=== PATIENT | female | born 1940 | race Two or more races ===

== ENCOUNTER 2021-05-25 11:31 | Emergency (ER) | payer MEDICARE, SELFPAY ==
--- NOTE | ~2021-05-25 | CT_ITS ---
EXAMINATION: CT ANGIOGRAM OF THE CHEST WITH AND WITHOUT CONTRAST (CT PULMONARY ANGIOGRAM FOR PE) CLINICAL INFORMATION: Reason for Exam SOB, elevated DDIMER COMPARISON: CT of the chest done on 11/05/2016. TECHNIQUE: Prior to contrast administration, noncontrast localization images were obtained. Subsequently, multidetector volumetric imaging was performed from the thoracic inlet to below the diaphragms following the administration of 65 mL Omnipaque 350 intravenous contrast. No contrast reaction reported Sagittal, coronal, and MIP oblique sagittal reformatted images were obtained on the CT workstation, uploaded to PACS, and reviewed. This CT examination was performed using dose optimization techniques as appropriate, variously including the following: *Automated exposure control *Adjustment of mA and/or kV according to patient size (this includes techniques or standardized protocols for targeted exams where dose is matched to indication/reason for exam; i.e. extremities or head) *Use of iterative reconstruction technique Total exam dose-length product 250.9 mGy-cm FINDINGS: QUALITY OF STUDY/CONTRAST BOLUS: Satisfactory. PULMONARY ARTERIES: No central or segmental pulmonary emboli. THORACIC AORTA: No aneurysm or dissection. LUNG: No focal consolidation, nodules or masses. PLEURA: No pleural effusion or pneumothorax. MEDIASTINUM: Normal heart size. No pericardial effusion. No hilar or mediastinal lymphadenopathy. No evidence of septal bowing or right heart strain. CHEST WALL/AXILLA: No axillary or internal mammary lymphadenopathy. OSSEOUS STRUCTURES: No acute or suspicious osseous abnormality. Marked S-shaped scoliosis is present in the thoracic spine. UPPER ABDOMEN: Stable approximately 1 cm hypodensity is noted within the left lobe of the liver. No reflux of contrast into the hepatic veins to suggest elevated right heart pressures. CT/CT angio chest PE protocol IMPRESSION: No CT evidence of any acute intrathoracic pathology is identified. Specifically, no CT evidence of any pulmonary thromboembolism is seen. VTE: Negative.
--- NOTE | ~2021-05-25 | US_ITS ---
EXAMINATION: US VENOUS ULTRASOUND WITH DOPPLER LOWER EXTREMITY, BILATERAL CLINICAL INFORMATION: Bilateral leg pain COMPARISON: None TECHNIQUE: Ultrasound of the deep veins is performed from the hip to the calf with compression sonography and color and pulse Doppler assessment. Spectral analysis with color-flow imaging is performed. FINDINGS: RIGHT: There is normal venous compression and respiratory variation and augmented flow. The visualized common femoral vein, superficial femoral vein, profunda femoral vein, popliteal vein, and the trifurcation region shows no evidence of deep venous thrombosis. There is no significant popliteal fossa cyst. LEFT: There is normal venous compression and respiratory variation and augmented flow. The visualized common femoral vein, superficial femoral vein, profunda femoral vein, popliteal vein, and the trifurcation region shows no evidence of deep venous thrombosis. There is no significant popliteal fossa cyst. US/US venous duplex LE BI IMPRESSION: No DVT demonstrated in the bilateral lower extremity.
[2021-05-25 11:36] VITALS: BP 152/82; PULSE 80; RESP 16; TEMP 36.5; O2SAT 97; BMI 25.7
--- NOTE | 2021-05-25 13:36 | ED.GENADULT ---
HPI - General Adult General Chief complaint: Recheck/Abnormal Lab/Rx Stated complaint: pt needs cta stat. Time Seen by Provider: 05/25/21 12:49 Source: patient Mode of arrival: ambulatory Limitations: no limitations History of Present Illness HPI narrative: 81 y/o female with history of DM, HTN who presents to the ER with SOB and abnormal blood work. She was told to come to the ER for CTA of her chest to rule out blood clot. She was supposed to get it done today as an outpatient however it was unable to be completed due to insurance issues. She was recently admitted to [facility] for 5 days due to reactive airway disease and SOB, discharged with PO Prednisone and a Z-pack. Short term rehab was recommended however patient refused. Patient's daughter who is also her SHOPPER MARKETING MANAGER reports she is still having SMALL, some generalized weakness. Patient herself denies complaints, including SOB, SMALL or chest pain. No LE swelling. MD complaint: SOB + elevated DDIMER Onset (ago): week(s) Location: chest Radiation: non-radiation Severity: mild Pain Consistency: intermittent Relieving factors: rest Exacerbating factors: movement Associated symptoms: weakness Related Data Allergies Allergy/AdvReac Type Severity Reaction Status Date / Time No Known Allergies Allergy Verified 05/25/21 11:42 Review of Systems Constitutional: Constitutional: Denies chills, Denies fever(s), Denies headache(s) and Reports malaise Eyes: Eyes: Reports no additional eye complaints ENT: Denies dizziness and Denies headache(s) Cardiovascular: Cardiovascular: Denies chest pain, Denies chest pain at rest, Denies chest pain with activity, Denies pedal edema, Denies edema and Reports dyspnea on exertion Respiratory: Respiratory: Reports chest congestion, Reports cough, Denies hemoptysis, Denies pain on inspiration, Reports dyspnea on exertion and Denies wheezing Gastrointestinal: Gastrointestinal: Denies abdominal pain, Denies diarrhea, Denies nausea and Denies vomiting Musculoskeletal: Musculoskeletal: Denies myalgias Integumentary/Breasts: Skin/Breast: Denies rash Neurologic: Denies confusion, Denies dizziness, Denies headache(s) and Denies memory loss Psychiatric: Psychiatric: Denies confusion and Denies memory loss Hematologic/Lymphatic: Hematologic/Lymphatic: Denies easy bleeding and Denies easy bruising Allergic/Immunologic: Allergic/Immunologic: Denies wheezing PMFSH Social History Social History Advance Directives: Yes Advance Directives Information Provided: Yes Advance Directives on File: No Physical Exam Vital Signs: Vital Signs: Last Vital Signs Temp 98.3 F 05/25/21 15:52 Pulse 77 05/25/21 15:52 Resp 16 05/25/21 15:52 BP 133/67 05/25/21 15:52 Pulse Ox 95 05/25/21 15:52 Body Mass Index 25.7 Appearance: Alert. Oriented X3. No acute distress. Eyes: Pupils equal, round and reactive to light. ENT: Pharynx normal. Neck: Normal inspection. Neck supple. CVS: Normal heart rate and rhythm. Pulses normal. Respiratory: No respiratory distress. Breath sounds normal. Abdomen: Soft and nontender. +BS x4 Skin: Skin warm and dry. Normal skin color. Normal skin turgor. No rashes. Extremities: No lower extremity edema. Neuro: Oriented X 3. No motor deficit. No sensory deficit. Ambualtes with a slow but steady gait with the use of a cane. Const: General: No confusion Orientation/consciousness: No confusion Neuro: General: No confusion Course Course Course Narrative: 81 y/o female presenting with mild SOB/SMALL ongoing for a few weeks, dry cough as well as elevated DDIMER done as an outpatient. VS are stable on arrival and exam is benign. Will plan to get LE dopplers as well as CTA chest to r/o clot. Reevaluation(s) Reevaluation #1: LE dopplers are negative. Awaiting renal function prior to getting CTA. Remains hemodynamically stable with no respiratory distress or hypoxia. Troponin and BNP are negative. Anticipate d/c home. Signed out to Barby AVILEZ who will f/u CTA result. Medical Decision Making Lab Data Result diagrams: 05/25/21 16:12 05/25/21 16:12 Labs: Lab Results 05/25/21 05/25/21 05/25/21 Range/Units 16:11 16:12 16:12 WBC 12.4 H (4.8-10.8) X10*3/uL RBC 5.15 (4.20-5.50) X10*6/uL Hgb 15.6 (12.0-16.0) g/dl Hct 47.3 H (37-47) % MCV 91.8 (80-98) fL MCH 30.3 (27.0-33.0) pg MCHC 33.0 (31.0-35.0) g/dl RDW 12.4 (11.0-16.0) % Plt Count 280 (160-400) X10*3/uL MPV 9.7 (9.4-12.3) fL Immature Gran % (Auto) 0.5 H (0.0-0.4) % Neut % (Auto) 68.5 (45-73) % Lymph % (Auto) 21.9 (20-40) % [place] % (Auto) 5.9 (2-11) % Eos % (Auto) 3.0 (0-4) % Baso % (Auto) 0.2 (0-2) % Lymph # (Auto) 2.7 (1.2-4.9) X10*3/uL [place] # (Auto) 0.7 (0.1-1.2) X10*3/uL Eos # (Auto) 0.4 (0.0-0.4) X10*3/uL Baso # (Auto) 0.0 (0.0-0.2) X10*3/uL Abs Immat Gran (auto) 0.06 H (0.00-0.03) X10*3/uL Absolute Neuts (auto) 8.5 H (2.0-8.3) X10*3/uL Absolute Nucleated RBC 0.000 (0.0-0.012) X10*3/uL Nucleated RBC % (auto) 0.0 (0.0-0.2) /100WBC PT 11.3 (9.9-13.0) SEC INR 1.0 (0.9-1.1) D-Dimer 248 NG/ML Sodium (135-145) mmol/L Potassium (3.3-5.1) mmol/L Chloride (96-108) mmol/L Carbon Dioxide (22-29) mmol/L Anion Gap (12-20) BUN (9-16) mg/dL Creatinine (0.5-1.4) mg/dL Estim Creat Clear Calc Estimated GFR Random Glucose (60-115) mg/dL Calcium (8.4-10.2) mg/dL Troponin I High Sens (<3.5-17.0) ng/L B-Natriuretic Peptide 38 (<100) pg/mL 05/25/21 05/25/21 Range/Units 16:12 16:12 WBC (4.8-10.8) X10*3/uL RBC (4.20-5.50) X10*6/uL Hgb (12.0-16.0) g/dl Hct (37-47) % MCV (80-98) fL MCH (27.0-33.0) pg MCHC (31.0-35.0) g/dl RDW (11.0-16.0) % Plt Count (160-400) X10*3/uL MPV (9.4-12.3) fL Immature Gran % (Auto) (0.0-0.4) % Neut % (Auto) (45-73) % Lymph % (Auto) (20-40) % [place] % (Auto) (2-11) % Eos % (Auto) (0-4) % Baso % (Auto) (0-2) % Lymph # (Auto) (1.2-4.9) X10*3/uL [place] # (Auto) (0.1-1.2) X10*3/uL Eos # (Auto) (0.0-0.4) X10*3/uL Baso # (Auto) (0.0-0.2) X10*3/uL Abs Immat Gran (auto) (0.00-0.03) X10*3/uL Absolute Neuts (auto) (2.0-8.3) X10*3/uL Absolute Nucleated RBC (0.0-0.012) X10*3/uL Nucleated RBC % (auto) (0.0-0.2) /100WBC PT (9.9-13.0) SEC INR (0.9-1.1) D-Dimer NG/ML Sodium 135 (135-145) mmol/L Potassium 4.9 (3.3-5.1) mmol/L Chloride 97 (96-108) mmol/L Carbon Dioxide 29 (22-29) mmol/L Anion Gap 14 (12-20) BUN 16 (9-16) mg/dL Creatinine 1.18 (0.5-1.4) mg/dL Estim Creat Clear Calc 33.5 Estimated GFR 44 Random Glucose 376 H* (60-115) mg/dL Calcium 9.8 (8.4-10.2) mg/dL Troponin I High Sens 4.2 (<3.5-17.0) ng/L B-Natriuretic Peptide (<100) pg/mL ECG Data Attestation: I personally reviewed and interpreted this ECG as follows: Interpretation: normal sinus rhythm, HR 68 bpm, normal CA interval, changes consistent with LVH, no ST segment elevations or depressions. Discharge Plan Discharge Clinical Impression: Chronic dyspnea Patient Disposition: Home, Self-Care Instructions: Shortness of Breath (ED) Additional Instructions: The ultrasound of your legs did not show any blood clots. Your CT scan did not show any blood clots in your lungs. Your COVID test was negative. Recommend following up with your doctor early next week. If you develop new or worsening symptoms call 911 or come back to the ER for further evaluation.
[2021-05-25 15:52] VITALS: BP 133/67; PULSE 77; RESP 16; TEMP 36.8; O2SAT 95
[2021-05-25 16:18] LABS: MANUAL DIFF FLAG NO
--- NOTE | 2021-05-25 16:19 | ECG_ITS ---
Test Reason : ABNORMAL LABS Blood Pressure : / mmHG Vent. Rate : 068 BPM Atrial Rate : 068 BPM P-R Int : 142 ms QRS Dur : 112 ms QT Int : 414 ms P-R-T Axes : 013 -24 043 degrees QTc Int : 440 ms Normal sinus rhythm Voltage criteria for left ventricular hypertrophy Cannot rule out Septal infarct , age undetermined Abnormal ECG When compared with ECG of 11-JAN-2018 12:37, QRS duration has increased Minimal criteria for Septal infarct are now Present Referred By: Asha Florence Electronically Signed By:Santos Aleman
[2021-05-25 16:20] LABS: Basophils Percent Auto 0.2 % (0-2); Eosinophils Absolute Auto 0.4 X10*3/uL (0.0-0.4); Hematocrit 47.3 % (37-47); Hemoglobin 15.6 g/dl (12.0-16.0); Imm Gran Abs Auto 0.06 X10*3/uL (0.00-0.03); Imm Gran Pct Auto 0.5 % (0.0-0.4); Lymphocytes Absolute Auto 2.7 X10*3/uL (1.2-4.9); Lymphocytes Percent Auto 21.9 % (20-40); Mean Corpuscular Hemoglobin 30.3 pg (27.0-33.0); Mean Corpuscular Volume 91.8 fL (80-98); Mean Platelet Volume 9.7 fL (9.4-12.3); Monocytes Absolute Auto 0.7 X10*3/uL (0.1-1.2); Monocytes Percent Auto 5.9 % (2-11); Neutrophils Absolute Auto 8.5 X10*3/uL (2.0-8.3); Neutrophils Percent Auto 68.5 % (45-73); Platelet Count 280 X10*3/uL (160-400); Red Blood Count 5.15 X10*6/uL (4.20-5.50); Red Cell Distribution Width 12.4 % (11.0-16.0); White Blood Count 12.4 X10*3/uL (4.8-10.8)
[2021-05-25 16:26] LABS: Prothrombin Time 11.3 SEC (9.9-13.0)
[2021-05-25 16:29] LABS: D Dimer 248 NG/ML
[2021-05-25 16:56] LABS: B Type Natriuretic Peptide 38 pg/mL (<100)
[2021-05-25 16:56] LABS: Troponin-I High Sensitivity 4.2 ng/L (<3.5-17.0)
[2021-05-25 17:05] LABS: Anion Gap 14 (12-20); Blood Urea Nitrogen 16 mg/dL (9-16); Calcium 9.8 mg/dL (8.4-10.2); Carbon Dioxide 29 mmol/L (22-29); Chloride 97 mmol/L (96-108); Creatinine Clr Calc Pharmacy 33.5; Estimated Glomerular Filt Rate 44; Glucose Random 376 mg/dL (60-115); Potassium 4.9 mmol/L (3.3-5.1); Sodium 135 mmol/L (135-145)
[2021-05-25] MEDS: Insulin Lispro 100 UNIT/ML 3 ML VIAL 8 UNIT SUBCUT (17:44)
[2021-05-25 18:31] LABS: Influenza A PCR NEGATIVE (Negative); Influenza B PCR NEGATIVE (Negative); Resp Syncy Virus RNA Qual PCR NEGATIVE (Negative); SARS COV2 PCR INHOUSE NEGATIVE (Negative)
[2021-05-25 19:13] VITALS: BP 166/78; PULSE 73; RESP 18; TEMP 36.8; O2SAT 97
[2021-05-25 19:50] LABS: Glucose, Whole Blood 287 mg/dL (60-115)
--- NOTE | 2021-05-25 19:52 | PC.NURSE ---
client iv established, pending ct scan at this time. client states she is hungry and would like something to eat. educated we have to wait for results. client is in nad, speaking in clear and full sentences with staff durable medical equipment repairer.
--- NOTE | 2021-05-25 20:43 | PC.NURSE ---
[facility] [place] [id number] [phone] DAUGHTER
[2021-05-25 20:52] LABS: Glucose, Whole Blood 94 mg/dL (60-115)
--- NOTE | 2021-05-25 21:06 | PC.NURSE ---
client to ct scan. Barby PASSENGER CAR CONDUCTOR states client can eat after
[2021-05-25] MEDS: iohexoL 350 MG/ML 100 ML INFUS..BTL 65 ML IV (21:15)
== END 2021-05-25 22:27 | disposition home or self-care (01) ==
PROVIDERS: Physician Assistant; Emergency Provider Emergency Medicine Emergency Medical Services; PCP Internal Medicine Geriatric Medicine
DX: R06.09 Other forms of dyspnea (principal); R06.02 Shortness of breath; R79.1 Abnormal coagulation profile; E11.9 Type 2 diabetes mellitus without complications; I10 Essential (primary) hypertension; Z20.822 Contact with and (suspected) exposure to COVID-19
CPT/HCPCS: 0241U; 36415; 71275; 80048; 82947; 83880; 84484; 85025; 85379; 85610; 93005; 93970; 99284; Q9967

== ENCOUNTER → 2021-07-10 09:04 | Outpatient (BNVA) | payer MEDICARE, SELFPAY | PROVIDERS: PCP Internal Medicine Geriatric Medicine; Visit Provider Hospitalist | DX: J98.4 Other disorders of lung (principal); J68.3 Other acute and subacute respiratory conditions due to chemicals, gases, fumes and vapors; J45.909 Unspecified asthma, uncomplicated | CPT/HCPCS: 99202 ==

== ENCOUNTER 2021-09-21 07:45 | Outpatient (REF) | payer MEDICARE, SELFPAY ==
--- NOTE | ~2021-09-21 | MM_ITS ---
EXAMINATION: BONE DENSITOMETRY CLINICAL INDICATION: Osteopenia. COMPARISON: Previous BD dated 09/30/2017 and baseline BD dated 07/21/2012. TECHNIQUE: Using a [employer] DXA System (software version: 13.1) manufactured by [employer], dual-energy x-ray absorptiometry was performed of the lumbar spine and left hip. The images are of good technical quality. Summary results are attached. FINDINGS: AP SPINE L1-L4: Current: BMD 0.973 g/cm2, Z-score 0.0, T-score -1.7, osteopenia, 1.2% increase from previous, 0.6% decrease from baseline (<5% change is not significant). Prior: BMD 0.961 g/cm2. Baseline: BMD 0.979 g/cm2. LEFT FEMUR, NECK: Current: BMD 0.585 g/cm2, Z-score -1.1, T-score -3.3, osteoporosis. Prior: BMD 0.744 g/cm2. Baseline: BMD 0.721 g/cm2. LEFT FEMUR, TOTAL: Current: BMD 0.718 g/cm2, Z-score -0.3, T-score -2.3, osteopenia, 14.6% decrease from previous, 16.5% decrease from baseline (<5% change is not significant). Prior: BMD 0.841 g/cm2. Baseline: BMD 0.860 g/cm2. IDENTIFIED RISK FACTORS: Menopause, history of fracture (adult), bilateral oophorectomy, secondary osteoporosis, Thiazide. HISTORY OF FRACTURE: Shoulder, ribs. MEDICATIONS: Calcium, vitamin D. MM/XR DEXA axial skeleton IMPRESSION: 1. DIAGNOSIS: Osteoporosis based on the lowest T-score value of -3.3 in the femoral neck applying World Health Organization criteria. 2. 10-YEAR FRACTURE RISK PREDICTION, FRAX: According to the guidelines, FRAX calculation should only be performed on patients in the osteopenia bone density category. 3. Treatment Recommendations: NOF guidelines recommend consideration for treatment in postmenopausal women and men age 50 and older presenting with the following: -A hip or vertebral (clinical or morphometric) fracture. -T-score less than or equal to -2.5 at the femoral neck or spine after appropriate evaluation to exclude secondary causes. -Low bone mass at the hip or spine and a 10-year fracture probability by FRAX of greater than or equal to 3% for hip fracture or greater than or equal to 20% for major osteoporotic fracture based on the [place] adapted WHO algorithm. 4. Other Recommendations: All treatment decisions require clinical judgment and consideration of individual patient factors, including patient preferences, comorbidities, previous drug use, risk factors not captured in the FRAX model (e.g. frailty, falls, vitamin D deficiency, increased bone turnover, interval significant decline in bone density) and possible under or overestimation of fracture risk by FRAX. Additional medical evaluation for secondary cause of low bone mineral density may be appropriate. FUTURE SCAN RECOMMENDATION: People with diagnosed cases of osteoporosis or at high risk for fracture should have regular bone mineral density tests. For patients eligible for Medicare, routine testing is allowed once every 2 years. The testing frequency can be increased to one year for patients who have rapidly progressing disease, those who are receiving or discontinuing medical therapy to restore bone mass, or have additional risk factors.
== END 2021-09-21 07:46 | disposition home or self-care (01) ==
LOC: HO.MAMMO 07:45
PROVIDERS: Visit Provider Internal Medicine Geriatric Medicine
DX: M85.80 Other specified disorders of bone density and structure, unspecified site (principal); Z78.0 Asymptomatic menopausal state; Z90.722 Acquired absence of ovaries, bilateral; Z79.899 Other long term (current) drug therapy
CPT/HCPCS: 77080

== ENCOUNTER 2021-11-20 08:50 | Outpatient (REF) | payer MEDICARE, SELFPAY ==
--- NOTE | ~2021-11-20 | CT_ITS ---
EXAMINATION: CT ANGIOGRAM CHEST CLINICAL INFORMATION: Respiratory failure COMPARISON: CTA chest 05/25/2021. TECHNIQUE: Multiple axial images were obtained through the chest after the administration of 50 mL of Omnipaque 350 intravenous contrast. Extensive vascular post-processing including two-dimensional and three-dimensional reformatted images were created and reviewed on an independent workstation. This CT examination was performed using dose optimization techniques as appropriate, variously including the following: *Automated exposure control *Adjustment of mA and/or kV according to patient size (this includes techniques or standardized protocols for targeted exams where dose is matched to indication/reason for exam; i.e. extremities or head) *Use of iterative reconstruction technique DLP: 112 mGy-cm FINDINGS: There is good opacification of the pulmonary artery and its branches without intraluminal filling defect. The thoracic aorta is of normal caliber. No aneurysm seen. There is normal three-vessel cerebral arch branching. There is no pericardial effusion seen. No abnormal size mediastinal lymph nodes. Central trachea and the bronchi are widely patent. The lungs are well expanded and clear of acute pneumonic process. However, there is diffuse ground-glass attenuation seen throughout both lungs likely low-grade inflammatory change. There is no pleural effusion, thickening or calcified pleural plaques. The axilla and chest wall is unremarkable. Imaging through the upper abdomen reveals visualized liver, spleen, pancreas and bilateral adrenal glands are unremarkable. Bone windows reveal no lytic or sclerotic process. There is mild S-shaped scoliosis and bridging osteophytes. CT/CT angio chest aorta IMPRESSION: No evidence of PE. No evidence of aortic aneurysm. Ground-glass attenuation throughout the lungs likely low-grade inflammatory process. No acute consolidation seen. Fleischner guidelines were followed.
[2021-11-20 10:44] LABS: Blood Urea Nitrogen 13 mg/dL (9-16); Estimated Glomerular Filt Rate 58
[2021-11-20] MEDS: iohexoL 350 MG/ML 100 ML INFUS..BTL 65 ML IV (12:19)
== END 2021-11-20 08:51 | disposition home or self-care (01) ==
LOC: HO.CT 08:50
PROVIDERS: PCP Internal Medicine Geriatric Medicine; Visit Provider Nurse Practitioner Family
DX: J96.91 Respiratory failure, unspecified with hypoxia (principal); E11.65 Type 2 diabetes mellitus with hyperglycemia; I10 Essential (primary) hypertension
CPT/HCPCS: 36415; 71275; 82565; 84520; Q9967

== ENCOUNTER 2022-01-03 08:29 | Outpatient (REF) | payer MEDICARE, SELFPAY ==
--- NOTE | 2022-01-03 | PFT_ITS ---
INDICATION: COPD. SPIROMETRY: FEV1 to FVC of 81% with an FEV1 of 1.1 L, which is 67% predicted; an FVC of 1.35 L, which is 62% predicted. No significant response to bronchodilators noted. Maximum voluntary ventilation 41% predicted. LUNG VOLUMES: Total lung capacity 69% predicted with an expiratory reserve volume of 33% predicted. DIFFUSION CAPACITY: DLCO 65% predicted, correcting to 112% predicted when correcting for the alveolar volume. COMPARISONS: None. INTERPRETATION: No obstructive ventilatory defect. No significant response to bronchodilators noted. There is a severe decrease in maximum voluntary ventilation secondary to likely deconditioning, although cannot rule out neuromuscular conditions. Lung volumes do demonstrate a restrictive ventilatory defect consistent with [id number] restrictive lung disease. In addition to that, there is a mild diffusion impairment. Need to consider underlying parenchymal lung conditions and/or pulmonary vascular conditions. Clinical correlation warranted. Moisés Ramos MD MR/MODL / [id number]
== END 2022-01-03 08:30 | disposition home or self-care (01) ==
LOC: HO.RESP 08:29
PROVIDERS: PCP Internal Medicine Geriatric Medicine; Visit Provider Hospitalist
DX: J18.9 Pneumonia, unspecified organism (principal); R91.8 Other nonspecific abnormal finding of lung field; J44.9 Chronic obstructive pulmonary disease, unspecified; J98.4 Other disorders of lung; J68.3 Other acute and subacute respiratory conditions due to chemicals, gases, fumes and vapors
CPT/HCPCS: 94060; 94727; 94729; 99212

== ENCOUNTER 2022-01-08 08:24 | Outpatient (REF) | payer OTHER, SELFPAY ==
--- NOTE | ~2022-01-08 | XR_ITS ---
EXAMINATION: XR CHEST CLINICAL INFORMATION: Pneumonia COMPARISON: Previous chest CTA November 2021 and chest x-ray December 2017 TECHNIQUE: 2 views of the chest were obtained. FINDINGS: The cardiac and mediastinal contours are stable. The lungs are clear. There is no pleural effusion or pneumothorax. There is old trauma to the left upper ribs. There is a thoracic scoliosis and degenerative changes of the spine.. XR/XR chest 2V IMPRESSION: No evidence of pneumonia.
[2022-01-08 08:50] LABS: MANUAL DIFF FLAG NO
[2022-01-08 09:33] LABS: Basophils Percent Auto 0.3 % (0-2); Eosinophils Absolute Auto 0.4 X10*3/uL (0.0-0.4); Eosinophils Percent Auto 3.7 % (0-4); Hematocrit 48.1 % (37.0-47.0); Hemoglobin 15.6 g/dl (12.0-16.0); Imm Gran Abs Auto 0.04 X10*3/uL (0.00-0.03); Imm Gran Pct Auto 0.4 % (0.0-0.4); Lymphocytes Absolute Auto 3.2 X10*3/uL (1.2-4.9); Lymphocytes Percent Auto 29.7 % (20-40); Mean Corpuscular HGB Conc 32.4 g/dl (31.0-35.0); Mean Corpuscular Hemoglobin 29.9 pg (27.0-33.0); Mean Corpuscular Volume 92.1 fL (80.0-98.0); Mean Platelet Volume 10.5 fL (9.4-12.3); Monocytes Absolute Auto 0.7 X10*3/uL (0.1-1.2); Monocytes Percent Auto 6.3 % (2-11); Neutrophils Absolute Auto 6.5 x10*3/uL (2.0-8.3); Neutrophils Percent Auto 59.6 % (45-73); Platelet Count 274 X10*3/uL (160-400); Red Blood Count 5.22 X10*6/uL (4.20-5.50); White Blood Count 10.8 X10*3/uL (4.8-10.8)
[2022-01-08 10:12] LABS: Erythrocyte Sedimentation Rate 23 MM/HR (0-20)
[2022-01-11 13:32] LABS: Anti Nuclear Antibody Pattern Nuclear Envelope; Anti Nuclear Antibody Screen POSITIVE (NEGATIVE)
[2022-01-11 14:32] LABS: Cyclic Citrullinated Peptide <16 UNITS
[2022-01-14 13:51] LABS: Asperg fumigatus Precip Abs NEGATIVE (NEGATIVE); Micropoly faeni Abs NEGATIVE (NEGATIVE); Pigeon serum Abs NEGATIVE (NEGATIVE); Saccharo pora viridis Abs NEGATIVE (NEGATIVE); Thermo candidus Abs NEGATIVE (NEGATIVE); Thermoa vulgaris #1 NEGATIVE (NEGATIVE)
== END 2022-01-08 08:25 | disposition home or self-care (01) ==
LOC: HO.LAB 08:24
PROVIDERS: PCP Internal Medicine Geriatric Medicine; Visit Provider Hospitalist
DX: J18.9 Pneumonia, unspecified organism (principal); R91.8 Other nonspecific abnormal finding of lung field; Z01.82 Encounter for allergy testing
CPT/HCPCS: 36415; 71046; 85025; 85652; 86003; 86038; 86039; 86200; 86331; 86606; 86609

== ENCOUNTER 2022-03-07 08:44 | Outpatient (REF) | payer OTHER, SELFPAY ==
[2022-03-07 13:02] LABS: Alanine Aminotransferase 36 U/L (0-31); Albumin Level 3.8 g/dL (3.5-5.0); Alkaline Phosphatase 136 U/L (39-117); Aspartate Amino Transferase 35 U/L (5-31); Bilirubin Direct 0.3 mg/dL (0.0-0.5); Bilirubin Total 0.7 mg/dL (0.0-1.0); Total Protein 7.5 g/dL (6.5-8.0)
[2022-03-08 20:07] LABS: Complement C3 137 mg/dL
[2022-03-13 15:52] LABS: Anti DNA DS Antibody 11 IU/mL; Antibody to SS-A Antigen <1.0 NEG AI (<1.0 NEG); Antibody to SS-B Antigen <1.0 NEG AI (<1.0 NEG)
[2022-03-13 21:01] LABS: Anti-Centromere B Antibodies <1.0 NEG AI (<1.0 NEG)
== END 2022-03-07 08:45 | disposition home or self-care (01) ==
LOC: HO.LAB 08:44
PROVIDERS: PCP Internal Medicine Geriatric Medicine; Visit Provider Hospitalist
DX: J98.4 Other disorders of lung (principal); J45.909 Unspecified asthma, uncomplicated; J68.3 Other acute and subacute respiratory conditions due to chemicals, gases, fumes and vapors; R76.8 Other specified abnormal immunological findings in serum
CPT/HCPCS: 36415; 80076; 86038; 86160; 86225; 86235; 99212

== ENCOUNTER → 2022-05-02 10:43 | Outpatient (BNVA) | payer OTHER, SELFPAY | PROVIDERS: PCP Internal Medicine Geriatric Medicine; Visit Provider Hospitalist | DX: J18.9 Pneumonia, unspecified organism (principal); J98.4 Other disorders of lung; J45.909 Unspecified asthma, uncomplicated; J68.3 Other acute and subacute respiratory conditions due to chemicals, gases, fumes and vapors; R76.8 Other specified abnormal immunological findings in serum | CPT/HCPCS: 99212 ==

== ENCOUNTER → 2022-06-04 09:23 | Outpatient (BNVA) | payer OTHER, SELFPAY | PROVIDERS: PCP Internal Medicine Geriatric Medicine; Visit Provider Nurse Practitioner Family | DX: G20 Parkinson's disease (principal); R42 Dizziness and giddiness; R25.0 Abnormal head movements | CPT/HCPCS: 99202 ==

== ENCOUNTER 2022-06-26 13:30 | Outpatient (REF) | payer OTHER, SELFPAY ==
[2022-06-27 09:22] LABS: HIV AB/AG Nonreactive (Nonreactive); HIV Num 1 0.09 S/CO (0.00-0.99)
[2022-07-01 06:23] LABS: DRVVT 1:1 Mix Interpretation Not Indicated; PTT (LAC) Screen 34 sec (<=40)
[2022-07-01 22:16] LABS: TS Negative Control Passed; TS Panel A 4; TS Panel B 3; TS Positive Control Passed; TSpotTB Negative (Negative)
== END 2022-06-26 13:31 | disposition home or self-care (01) ==
LOC: HO.LAB 13:30
PROVIDERS: PCP Internal Medicine Geriatric Medicine; Visit Provider Student in an Organized Health Care Education/Training Program
DX: Z11.7 Encounter for testing for latent tuberculosis infection (principal); Z11.4 Encounter for screening for human immunodeficiency virus [HIV]; R76.8 Other specified abnormal immunological findings in serum
CPT/HCPCS: 85597; 85613; 85730; 86481; 87389; 99202

== ENCOUNTER 2022-06-27 10:35 | Outpatient (REF) | payer OTHER, SELFPAY ==
[2022-06-27 11:09] LABS: MANUAL DIFF FLAG NO
[2022-06-27 11:57] LABS: Basophils Absolute Auto 0.1 X10*3/uL (0.0-0.2); Basophils Percent Auto 0.6 % (0-2); Eosinophils Absolute Auto 0.3 X10*3/uL (0.0-0.4); Eosinophils Percent Auto 2.9 % (0-4); Hematocrit 47.2 % (37.0-47.0); Hemoglobin 15.4 g/dl (12.0-16.0); Imm Gran Abs Auto 0.02 X10*3/uL (0.00-0.03); Imm Gran Pct Auto 0.2 % (0.0-0.4); Lymphocytes Percent Auto 21.8 % (20-40); Mean Corpuscular HGB Conc 32.6 g/dl (31.0-35.0); Mean Corpuscular Hemoglobin 29.8 pg (27.0-33.0); Mean Corpuscular Volume 91.3 fL (80.0-98.0); Mean Platelet Volume 10.4 fL (9.4-12.3); Monocytes Absolute Auto 0.6 X10*3/uL (0.1-1.2); Monocytes Percent Auto 6.9 % (2-11); Neutrophils Absolute Auto 6.1 x10*3/uL (2.0-8.3); Neutrophils Percent Auto 67.6 % (45-73); Platelet Count 309 X10*3/uL (160-400); Red Blood Count 5.17 X10*6/uL (4.20-5.50); Red Cell Distribution Width 12.7 % (11.0-16.0)
[2022-06-27 12:18] LABS: Appearance Urine Clear; Color Urine Yellow; Glucose Urine UA >=1000 mg/dL (Negative); Leukocyte Esterase Urine Small (1+) (Negative); Nitrite Urine Negative (Negative); Specific Gravity - Urine >= 1.030 (1.005-1.025); Urine Blood Negative (Negative); Urine Ketones Negative (Negative); Urine Protein Negative (Neg-Trace)
[2022-06-27 12:20] LABS: Bacteria Urine Trace (None Seen); Hyaline Casts Urine 0-2 /LPF (0-2); RBC Urine 0-2 /HPF (0-2); UACC Culture Trigger YES; WBC Urine 21-50 /HPF (0-5)
[2022-06-27 12:45] LABS: Thyroid Stimulating Hormone 2.23 uIU/mL (0.32-4.0)
[2022-06-27 13:02] LABS: Erythrocyte Sedimentation Rate 21 MM/HR (0-20)
[2022-06-27 13:05] LABS: C Reactive Protein 0.67 mg/dL (< or = 0.50)
[2022-06-27 13:05] LABS: Creatinine Urine 75.63 mg/dL; Total Protein Urine Random < 7 mg/dL (<12)
[2022-06-27 13:22] LABS: Lactate Dehydrogenase 207 U/L (122-220); Rheumatoid Factor < 15.0 IU/mL (<15.0)
[2022-06-29 09:42] LABS: Thyroglobulin Antibodies <1 IU/mL (< or = 1); Thyroid Peroxidase Antibodies 1 IU/mL (<9)
[2022-07-01 11:32] LABS: IgA 290 mg/dL (70-320); IgG 1433 mg/dL (600-1540); IgM 239 mg/dL (50-300)
[2022-07-01 14:12] LABS: Anti DNA DS Antibody 7 IU/mL; Myeloperoxidase Antibody <1.0 AI; Proteinase 3 PR3 Antibodies <1.0 AI; SM/Ribonucleoprotein Ab <1.0 NEG AI (<1.0 NEG); Scleroderma 70 Antibody <1.0 NEG AI (<1.0 NEG); Smith Protein <1.0 NEG AI (<1.0 NEG)
[2022-07-02 12:52] LABS: Cardiolipin IgG Ab <2.0 GPL-U/mL; Cardiolipin IgM Ab <2.0 MPL-U/mL
[2022-07-02 16:52] LABS: Beta-2 Glycoprotein IgA <2.0 U/mL (<20.0); Beta-2 Glycoprotein IgG <2.0 U/mL (<20.0); Beta-2 Glycoprotein IgM <2.0 U/mL (<20.0)
[2022-07-03 06:12] LABS: Angiotensin Converting Enzyme 9 U/L (9-67)
[2022-07-03 15:02] LABS: Vitamin D 25-OH, D2 <4 ng/mL; Vitamin D 25-OH, D3 21 ng/mL; Vitamin D 25-OH, Total 21 ng/mL (30-100)
== END 2022-06-27 10:36 | disposition home or self-care (01) ==
LOC: HO.LAB 10:35
PROVIDERS: PCP Internal Medicine Geriatric Medicine; Visit Provider Student in an Organized Health Care Education/Training Program
DX: Z13.21 Encounter for screening for nutritional disorder (principal); R76.8 Other specified abnormal immunological findings in serum; J98.4 Other disorders of lung; J18.9 Pneumonia, unspecified organism
CPT/HCPCS: 81001; 82085; 82164; 82306; 82550; 82784; 83615; 84156; 84443; 85025; 85652; 86021; 86140; 86146; 86147; 86225; 86235; 86334; 86376; 86431; 86800; 87086

== ENCOUNTER 2022-06-28 08:24 | Outpatient (REF) | payer OTHER, SELFPAY ==
[2022-06-28 09:37] LABS: Appearance Urine Clear; Color Urine Yellow; Glucose Urine UA >=1000 mg/dL (Negative); Leukocyte Esterase Urine Small (1+) (Negative); Nitrite Urine Negative (Negative); PH 6.5 (5.0-9.0); Specific Gravity - Urine 1.025 (1.005-1.025); Urine Blood Small (1+) (Negative); Urine Ketones Negative (Negative); Urine Protein Negative (Neg-Trace)
[2022-06-28 09:39] LABS: Bacteria Urine 1+ (None Seen); Hyaline Casts Urine 0-2 /LPF (0-2); UACC Culture Trigger YES
== END 2022-06-28 08:25 | disposition home or self-care (01) ==
LOC: HO.LAB 08:24
PROVIDERS: PCP Internal Medicine Geriatric Medicine; Visit Provider Student in an Organized Health Care Education/Training Program
DX: R76.8 Other specified abnormal immunological findings in serum (principal)
CPT/HCPCS: 81001

== ENCOUNTER 2022-07-12 10:13 | Outpatient (REF) | payer OTHER, SELFPAY ==
--- NOTE | ~2022-07-12 | XR_ITS ---
EXAMINATION: XR HAND, RIGHT CLINICAL INFORMATION: Right hand pain. COMPARISON: Right hand radiographs dated 12/24/2018. TECHNIQUE: PA, lateral, and oblique views of the right hand. FINDINGS: No acute fracture or dislocation. Mild joint space narrowing with tiny marginal osteophytes at the 1st metacarpophalangeal joint. No osseous erosion. No abnormal soft tissue calcification. 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
== END 2022-07-12 10:14 | disposition home or self-care (01) ==
LOC: HO.HOSX 10:13
PROVIDERS: Visit Provider Orthopaedic Surgery
DX: S63.641A Sprain of metacarpophalangeal joint of right thumb, initial encounter (principal)
CPT/HCPCS: 73130; 99202

== ENCOUNTER → 2022-07-24 09:52 | Outpatient (BNVA) | payer OTHER, SELFPAY | PROVIDERS: PCP Internal Medicine Geriatric Medicine; Visit Provider Student in an Organized Health Care Education/Training Program | DX: J84.9 Interstitial pulmonary disease, unspecified (principal); R74.01 Elevation of levels of liver transaminase levels; Z79.899 Other long term (current) drug therapy | CPT/HCPCS: 99212 ==

== ENCOUNTER 2022-07-24 10:52 | Outpatient (REF) | payer OTHER, SELFPAY ==
[2022-07-24 13:44] LABS: Appearance Urine Clear; Color Urine Yellow; Glucose Urine UA >=1000 mg/dL (Negative); Leukocyte Esterase Urine Small (1+) (Negative); Nitrite Urine Negative (Negative); PH 5.5 (5.0-9.0); Specific Gravity - Urine >= 1.030 (1.005-1.025); UMIC TRIGGER UA YES; Urine Blood Negative (Negative); Urine Ketones Negative (Negative); Urine Protein Negative (Neg-Trace)
[2022-07-24 13:49] LABS: Bacteria Urine Trace (None Seen); Hyaline Casts Urine 0-2 /LPF (0-2); RBC Urine 0-2 /HPF (0-2); WBC Urine 21-50 /HPF (0-5)
[2022-07-24 14:11] LABS: Alanine Aminotransferase 20 U/L (0-31); Alkaline Phosphatase 105 U/L (39-117); Anion Gap 17 (12-20); Aspartate Amino Transferase 26 U/L (5-31); Bilirubin Total 0.5 mg/dL (0.0-1.0); Blood Urea Nitrogen 14 mg/dL (9-16); Carbon Dioxide 28 mmol/L (22-29); Chloride 101 mmol/L (96-108); Estimated Glomerular Filt Rate 59; Glucose Random 159 mg/dL (60-115); Potassium 4.7 mmol/L (3.3-5.1); Sodium 141 mmol/L (135-145); Total Protein 7.7 g/dL (6.5-8.0)
== END 2022-07-24 10:53 | disposition home or self-care (01) ==
LOC: HO.10HDL 10:52
PROVIDERS: Visit Provider Student in an Organized Health Care Education/Training Program
DX: J18.9 Pneumonia, unspecified organism (principal); J98.4 Other disorders of lung; R76.8 Other specified abnormal immunological findings in serum; R74.01 Elevation of levels of liver transaminase levels
CPT/HCPCS: 80053; 81001; 83516; 83520; 84182; 86235

== ENCOUNTER → 2022-08-13 09:46 | Outpatient (BNVA) | payer OTHER, SELFPAY | PROVIDERS: PCP Internal Medicine Geriatric Medicine; Visit Provider Nurse Practitioner Family | DX: G20 Parkinson's disease (principal); R25.0 Abnormal head movements; R42 Dizziness and giddiness | CPT/HCPCS: 99212 ==

== ENCOUNTER → 2022-08-16 11:46 | Outpatient (BNVA) | payer OTHER, SELFPAY | PROVIDERS: PCP Internal Medicine Geriatric Medicine; Visit Provider Physician Assistant | DX: S63.641D Sprain of metacarpophalangeal joint of right thumb, subsequent encounter (principal) | CPT/HCPCS: 99212 ==

== ENCOUNTER → 2022-09-02 08:47 | Outpatient (BNVA) | payer OTHER, SELFPAY | PROVIDERS: PCP Internal Medicine Geriatric Medicine; Visit Provider Hospitalist | DX: J84.9 Interstitial pulmonary disease, unspecified (principal); J18.9 Pneumonia, unspecified organism; J98.4 Other disorders of lung; J45.909 Unspecified asthma, uncomplicated; J68.3 Other acute and subacute respiratory conditions due to chemicals, gases, fumes and vapors; R76.8 Other specified abnormal immunological findings in serum | CPT/HCPCS: 99212 ==

== ENCOUNTER 2022-09-25 08:21 | Outpatient (REF) | payer OTHER, SELFPAY ==
[2022-09-25 08:37] LABS: MANUAL DIFF FLAG NO
[2022-09-25 08:53] LABS: Basophils Absolute Auto 0.1 X10*3/uL (0.0-0.2); Basophils Percent Auto 0.5 % (0-2); Eosinophils Absolute Auto 0.5 X10*3/uL (0.0-0.4); Eosinophils Percent Auto 4.8 % (0-4); Hemoglobin 15.8 g/dl (12.0-16.0); Imm Gran Abs Auto 0.03 X10*3/uL (0.00-0.03); Imm Gran Pct Auto 0.3 % (0.0-0.4); Lymphocytes Absolute Auto 2.5 X10*3/uL (1.2-4.9); Mean Corpuscular HGB Conc 32.2 g/dl (31.0-35.0); Mean Corpuscular Volume 90.1 fL (80.0-98.0); Mean Platelet Volume 9.9 fL (9.4-12.3); Monocytes Absolute Auto 0.6 X10*3/uL (0.1-1.2); Monocytes Percent Auto 6.2 % (2-11); Neutrophils Absolute Auto 6.4 x10*3/uL (2.0-8.3); Neutrophils Percent Auto 63.2 % (45-73); Platelet Count 265 X10*3/uL (160-400); Red Blood Count 5.44 X10*6/uL (4.20-5.50); Red Cell Distribution Width 12.5 % (11.0-16.0); White Blood Count 10.1 X10*3/uL (4.8-10.8)
[2022-09-25 09:23] LABS: Alanine Aminotransferase 13 U/L (0-31); Alkaline Phosphatase 115 U/L (39-117); Anion Gap 12 (12-20); Aspartate Amino Transferase 16 U/L (5-31); Bilirubin Total 0.7 mg/dL (0.0-1.0); Blood Urea Nitrogen 11 mg/dL (9-16); C Reactive Protein 0.68 mg/dL (< or = 0.50); Calcium 10.2 mg/dL (8.4-10.2); Carbon Dioxide 30 mmol/L (22-29); Chloride 102 mmol/L (96-108); Estimated Glomerular Filt Rate 56; Glucose Random 203 mg/dL (60-115); Potassium 4.2 mmol/L (3.3-5.1); Sodium 140 mmol/L (135-145); Total Protein 7.6 g/dL (6.5-8.0)
[2022-09-25 09:48] LABS: Erythrocyte Sedimentation Rate 18 MM/HR (0-20)
[2022-09-25 10:59] LABS: Appearance Urine Clear; Color Urine Yellow; Glucose Urine UA >=1000 mg/dL (Negative); Leukocyte Esterase Urine Small (1+) (Negative); Nitrite Urine Negative (Negative); Specific Gravity - Urine >= 1.030 (1.005-1.025); UMIC TRIGGER UA YES; Urine Blood Negative (Negative); Urine Ketones Negative (Negative); Urine Protein Negative (Neg-Trace)
[2022-09-25 11:02] LABS: Bacteria Urine None Seen (None Seen); Hyaline Casts Urine 0-2 /LPF (0-2); RBC Urine 0-2 /HPF (0-2); WBC Urine 21-50 /HPF (0-5)
[2022-09-25 11:09] LABS: Creatinine Urine 76.34 mg/dL; Protein/Creatinine Ratio, Ur 0.12 (<0.2); Total Protein Urine Random 9 mg/dL (<12)
[2022-09-26 11:18] LABS: Complement C3 138 mg/dL
[2022-09-27 08:09] LABS: Anti DNA DS Antibody 9 IU/mL; Antibody to SS-A Antigen <1.0 NEG AI (<1.0 NEG); Antibody to SS-B Antigen <1.0 NEG AI (<1.0 NEG); SM/Ribonucleoprotein Ab <1.0 NEG AI (<1.0 NEG); Smith Protein <1.0 NEG AI (<1.0 NEG)
[2022-09-28 15:13] LABS: Anti Nuclear Antibody Pattern Nuclear Envelope; Anti Nuclear Antibody Screen POSITIVE (NEGATIVE)
== END 2022-09-25 08:22 | disposition home or self-care (01) ==
LOC: HO.LAB 08:21
PROVIDERS: PCP Internal Medicine Geriatric Medicine; Visit Provider Student in an Organized Health Care Education/Training Program
DX: J84.9 Interstitial pulmonary disease, unspecified (principal)
CPT/HCPCS: 36415; 80053; 81001; 84156; 85025; 85652; 86038; 86039; 86140; 86160; 86225; 86235

== ENCOUNTER → 2022-11-12 09:34 | Outpatient (BNVA) | payer OTHER, SELFPAY | PROVIDERS: PCP Internal Medicine Geriatric Medicine; Visit Provider Nurse Practitioner Family | DX: G20 Parkinson's disease (principal); R42 Dizziness and giddiness | CPT/HCPCS: 99212 ==

== ENCOUNTER → 2023-02-06 10:01 | Outpatient (BNVA) | payer OTHER, SELFPAY | PROVIDERS: PCP Internal Medicine Geriatric Medicine; Visit Provider Psychiatry & Neurology Neurology | DX: G20 Parkinson's disease (principal); R42 Dizziness and giddiness | CPT/HCPCS: 99212 ==

== ENCOUNTER → 2023-03-03 09:20 | Outpatient (BNVA) | payer OTHER, SELFPAY | PROVIDERS: PCP Internal Medicine Geriatric Medicine; Visit Provider Hospitalist | DX: J18.9 Pneumonia, unspecified organism (principal); J84.9 Interstitial pulmonary disease, unspecified; J98.4 Other disorders of lung; J45.909 Unspecified asthma, uncomplicated; J68.3 Other acute and subacute respiratory conditions due to chemicals, gases, fumes and vapors | CPT/HCPCS: 99212 ==

== ENCOUNTER 2023-03-12 08:24 | Outpatient (REF) | payer OTHER, SELFPAY ==
--- NOTE | ~2023-03-12 | XR_ITS ---
EXAMINATION: XR CHEST CLINICAL INFORMATION: Interstitial pulmonary disease COMPARISON: Previous chest x-ray most recent December 2021 TECHNIQUE: 2 views of the chest were obtained. FINDINGS: The cardiac and mediastinal contours are normal. The lungs are clear. No pleural effusion or pneumothorax. Thoracolumbar scoliosis and degenerative changes. Old trauma versus congenital deformity of the left proximal ribs unchanged. XR/XR chest 2V IMPRESSION: No evidence for acute disease in the chest. No evidence of interstitial lung disease appreciated by chest x-ray.
== END 2023-03-12 08:25 | disposition home or self-care (01) ==
LOC: HO.XRAY 08:24
PROVIDERS: PCP Internal Medicine Geriatric Medicine; Visit Provider Hospitalist
DX: J84.9 Interstitial pulmonary disease, unspecified (principal)
CPT/HCPCS: 71046

== ENCOUNTER 2023-07-25 09:31 | Outpatient (AMB) | payer OTHER, SELFPAY ==
--- NOTE | 2023-07-25 09:32 | MHC.OFFVIS ---
Intake Vital Signs 07/25/23 09:33 Height 5 ft 3 in Weight 158 lb 15.253 oz BMI 28.2 BP 110/70 Blood Pressure Location Rt brachial Position Sitting Pulse 78 Pulse Source Pulse Oximeter Temp 97.2 F Temp Source Skin Pulse Oximetry (%) 96 Oxygen Delivery Method Room Air Intake Visit Reasons: SLE Intake Note: Pt seen today for follow up and test results. c/o left hip pain Event Security Officer Required: Yes Event Security Officer Language: Fan Engine Engineer Name: Michael [id number] Information Interpreted: clinical only Accompanied by: Self / Same As Patient Allergies calcium Allergy (Severe, Verified 07/25/23 09:39) Nausea Medication List - Last Reconciled 07/25/23 by Klever Mcguire MD albuterol sulfate mg inhalation TID albuterol sulfate 90 mcg/actuation 2 puffs inhalation QID PRN amlodipine 10 mg PO DAILY aspirin 81 mg PO QPM blood pressure test kit-large As directed blood sugar diagnostic (FreeStyle Lite Strips) As directed blood-glucose meter (FreeStyle [place] Lite kit) As directed bupropion HCl 75 mg PO DAILY PRN calcium carbonate (Calcium 500) 500 mg PO DAILY carbidopa-levodopa 25-100 mg 1 tab PO QID 90 days cholecalciferol (vitamin D3) (Vitamin D3) 25 mcg PO DAILY clindamycin phosphate 1% mL topical BID compr.stocking,thigh,reg,small As directed dulaglutide (Trulicity) 0.75 mg subcut QWEEK empagliflozin (Jardiance) 25 mg PO DAILY guaifenesin (Chest Congestion Relief) mg PO hydrochlorothiazide 12.5 mg PO QAM hydroxychloroquine 200 mg PO QPM hydroxyzine HCl 25 mg PO TID PRN insulin glargine (Lantus Solostar U-100 Insulin) 40 units subcut QPM lancets (TRUEplus Lancets) As directed lanolin hkwkgiy-bq-g.pet-ceres (Minerin Creme topical) 1 appl topical DAILY lisinopril 30 mg PO DAILY metformin 1,000 mg PO BID metoprolol succinate ER 40 mg PO QAM nebulizers As directed nitrofurantoin monohyd/m-cryst 100 mg (Macrobid) 100 mg PO Q12H omeprazole 40 mg PO DAILY pen needle, diabetic (Pentips) As directed polyvinyl alcohol 1.4% (Artificial Tears (polyvinyl alcohol)) 1 drp ophthalmic (eye) TID-QID PRN pramipexole (Mirapex) 0.125 mg PO TID simvastatin 20 mg PO QPM triamcinolone acetonide 0.1% topical HPI HPI Comments History of Present Illness Details This is an 83-year-old female with IPAF (IPF, + DsDNA) who presents for follow-up. She has no acute complaints. She denies any swollen joints. Denies any cough or shortness of breath. She is on hydroxychloroquine 20 mg daily prescribed by Dr. Ramos. Initial history: This is an 82 year old female with a past medical history of parkinsonism, anxiety, type 2 diabetes mellitus, osteoporosis who presents for evaluation of positive NARCISA in the context of interstitial lung disease. The Condition started around 1 year ago when patient was admitted for shortness of breath. She was evaluated and treated with steroids then discharged. She was eventually seen by elementary assistant [place] [facility] [place] was found to have positive NARCISA and borderline positive dsDNA. She was started on Plaquenil 1 tab once a day which patient mentions has helped her symptoms. She states that over the last year she has had bilateral hand pain especially in her MCPs and PIP is and occasionally would drop things. . She denies any joint swelling. Denies any muscle weakness. She is using a cane due to dizziness. 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 Review of Systems Card Denies dyspnea Resp Denies cough and Denies dyspnea Musc Denies arthralgias and Denies joint swelling Physical Exam Vital Signs: Last Vital Signs Temp 97.2 F 07/25/23 09:33 Pulse 78 07/25/23 09:33 BP 110/70 07/25/23 09:33 Pulse Ox 96 07/25/23 09:33 Oxygen Delivery Method Room Air 07/25/23 09:33 BMI result Body Mass Index 28.2 Const General: cooperative and healthy appearing Nutritional Appearance: overweight Orientation/consciousness: patient oriented x3 Limitations: ambulation with cane HEENT Head: Yes normocephalic and Yes atraumatic Mouth: moist mucous membranes Resp Effort & Inspection: normal respiratory effort and able to speak in complete sentences Auscultation: rales bilateral at the base Skin General skin exam: no rashes or lesions noted Neuro Other: Head tremors General: patient oriented x3 Extrem Other: No synovitis today, normal nailfold capillaroscopy Osteoarthritic changes of both hands Assessment & Plan Assessment & Plan (1) ILD (interstitial lung disease): Code(s): J84.9 - Interstitial pulmonary disease, unspecified Plan: This is an 83-year-old female with IPAF (pneumonitis + DsDNA) who presents for follow-up. She is on hydroxychloroquine 200 mg daily prescribed by Pulmonary. I do not see any SLE features upon my evaluation today. Symptoms have remained fairly stable. Continue to follow-up with pulmonary Follow-up with me in 1 year (2) Long-term use of Plaquenil: Code(s): Z79.899 - Other penitentiary (current) drug therapy Plan: Side effects of Plaquenil were discussed with patient. Patient was last evaluated by Ophthalmology 04/2022. She was not started on hydroxychloroquine yet. Advised patient to go back to Ophthalmology for Plaquenil screening Plan I spent 18 minutes reviewing patient's chart, evaluating patient, counseling patient and documenting in the chart Orders: Referrals Ophthalmology Referral Z79.899 - Other penitentiary (current) drug therapy Coding Level of Care Code Est Pt Level 3 (79757) Diagnoses ILD (interstitial lung disease) J84.9 Long-term use of Plaquenil Z79.899
[2023-07-25 09:33] VITALS: BP 110/70; PULSE 78; TEMP 36.2; O2SAT 96; BMI 28.2
== END 2023-07-25 09:55 | disposition home or self-care (01) ==
LOC: HO.RHE 09:31
PROVIDERS: PCP Internal Medicine Geriatric Medicine; Visit Provider Student in an Organized Health Care Education/Training Program
DX: J84.9 Interstitial pulmonary disease, unspecified (principal); Z79.899 Other long term (current) drug therapy
CPT/HCPCS: 99213

== ENCOUNTER → 2023-07-25 09:31 | Outpatient (BNVA) | payer OTHER, SELFPAY | PROVIDERS: PCP Internal Medicine Geriatric Medicine; Visit Provider Student in an Organized Health Care Education/Training Program | DX: J84.9 Interstitial pulmonary disease, unspecified (principal); Z79.899 Other long term (current) drug therapy | CPT/HCPCS: 99212 ==

== ENCOUNTER 2023-08-15 10:02 | Outpatient (AMB) | payer OTHER, SELFPAY ==
--- NOTE | 2023-08-15 10:08 | A.OFFVIS_ITS ---
Intake Vital Signs 08/15/23 10:10 Height 5 ft 3 in Weight 162 lb BMI 28.7 BP 142/76 H Blood Pressure Location Rt brachial Position Sitting Pulse 74 Pulse Source Pulse Oximeter Pulse Oximetry (%) 97 Oxygen Delivery Method Room Air Intake Visit Reasons: 6 mnts f/u with MD-Confirmed Intake Note: Pt presents to the office for her 6 month follow up for tremors and Parkinson's. Pt is [place] speaking and she reports her tremors and dizzy spells are worse. Facilities Maintenance Engineer Required: Yes Facilities Maintenance Engineer Name: Francie Ramos CMA Allergies calcium Allergy (Severe, Verified 08/15/23 10:09) Nausea Medication List - Last Reconciled 08/15/23 by Shameka Knott MD albuterol sulfate mg inhalation TID albuterol sulfate 90 mcg/actuation 2 puffs inhalation QID PRN amlodipine 10 mg PO DAILY aspirin 81 mg PO QPM blood pressure test kit-large As directed blood sugar diagnostic (FreeStyle Lite Strips) As directed blood-glucose meter (FreeStyle [place] Lite kit) As directed bupropion HCl 75 mg PO DAILY PRN calcium carbonate (Calcium 500) 500 mg PO DAILY carbidopa-levodopa 25-100 mg 1 tab PO QID 90 days cholecalciferol (vitamin D3) (Vitamin D3) 25 mcg PO DAILY clindamycin phosphate 1% mL topical BID compr.stocking,thigh,reg,small As directed dulaglutide (Trulicity) 0.75 mg subcut QWEEK empagliflozin (Jardiance) 25 mg PO DAILY guaifenesin (Chest Congestion Relief) mg PO hydrochlorothiazide 12.5 mg PO QAM hydroxychloroquine 200 mg PO QPM hydroxyzine HCl 25 mg PO TID PRN insulin glargine (Lantus Solostar U-100 Insulin) 40 units subcut QPM lancets (TRUEplus Lancets) As directed lanolin lfsbosn-yu-a.pet-ceres (Minerin Creme topical) 1 appl topical DAILY lisinopril 30 mg PO DAILY metformin 1,000 mg PO BID metoprolol succinate ER 40 mg PO QAM nebulizers As directed nitrofurantoin monohyd/m-cryst 100 mg (Macrobid) 100 mg PO Q12H omeprazole 40 mg PO DAILY pen needle, diabetic (Pentips) As directed polyvinyl alcohol 1.4% (Artificial Tears (polyvinyl alcohol)) 1 drp ophthalmic (eye) TID-QID PRN pramipexole (Mirapex) 0.125 mg PO TID simvastatin 20 mg PO QPM triamcinolone acetonide 0.1% topical HPI HPI Comments History of Present Illness Details 83 y/o female patient comes for follow u p of head tremors and parkinsonism A clinical medical transcriptionist Francie Ramos helped during the visit. Pt's reports her Parkinson's symptoms are well managed but tremors are worse. she has episodes of vertigo with chnage in head position. she also has diabetes . Pt tends to walk to side and uses cane. Denies vivid dreams or acting out dreams. Denies drooling, difficulty eating or swallowing. Denies stiffness. She has help for house keeping and cooking for the days. Pt can have occasional constipation but it is manageable. 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 ) Resp Effort & Inspection: normal respiratory effort and able to speak in complete sentences Neuro Other: Head tremor and voice tremor. Bilateral hands resting and action tremor. General: patient oriented x3 Cognition (Neuro): normal cognition Gait exam (Neuro): Other gait observations present (Mildly stooped, good steps with cane, but holding padilla due to dizziness. ) Motor exam (neuro): 5/5 motor strength present throughout, Normal motor muscle tone present throughout and Other motor observations present (Head tremor, decreased FFM.) Deep tendon reflexes (DTR's): Rt Biceps (C5, C6): 3+, Left biceps reflex intensity grade: 3+, Right brachioradialis reflex intensity grade: 3+, Left brachioradialis reflex intensity grade: 3+, Right patellar reflex intensity grade: 2+ and Left patellar reflex intensity grade: 3+ Psych Appearance: grossly normal Mental Status: mental status grossly normal Assessment & Plan Assessment & Plan (1) Parkinson disease: Code(s): G20 - Parkinson's disease (2) Abnormal head movements: Comment: head tremors Code(s): R25.0 - Abnormal head movements (3) Vertigo: Code(s): R42 - Dizziness and giddiness Plan Advised patient to continue to take Sinemet 25/100 mg to QID. Vestibular therapy Increase PO fluid to prevent light headedness and dizziness. Advised patient to change her position slowly. Using a weighted hat that helps with head tremors. Orders: Orders OT Evaluation and Treatment Today R42 - Dizziness and giddiness Coding Level of Care Code Est Pt Level 4 (97556) Diagnoses Parkinson disease G20 Abnormal head movements R25.0 Vertigo R42
[2023-08-15 10:10] VITALS: BP 142/76; PULSE 74; O2SAT 97; BMI 28.7
== END 2023-08-15 10:41 | disposition home or self-care (01) ==
PROVIDERS: Visit Provider Psychiatry & Neurology Neurology
DX: G20.A1 Parkinson's disease without dyskinesia, without mention of fluctuations (principal); R42 Dizziness and giddiness
CPT/HCPCS: 99214

== ENCOUNTER → 2023-08-15 10:02 | Outpatient (BNVA) | payer OTHER, SELFPAY | PROVIDERS: Visit Provider Psychiatry & Neurology Neurology | DX: G20.A1 Parkinson's disease without dyskinesia, without mention of fluctuations (principal); R42 Dizziness and giddiness | CPT/HCPCS: 99212 ==

== ENCOUNTER 2023-08-26 18:52 | Outpatient (REF) | payer OTHER, SELFPAY ==
[2023-08-28 15:48] LABS: C. trachomatis RNA TMA NOT DETECTED (NOT DETECTED); Candida glabrata RNA NOT DETECTED (NOT DETECTED); Candida species RNA NOT DETECTED (NOT DETECTED); N. gonorrhoeae RNA TMA NOT DETECTED (NOT DETECTED); Trichomonas vaginalis RNA NOT DETECTED (NOT DETECTED)
== END 2023-08-26 18:53 | disposition home or self-care (01) ==
LOC: HO.HHCLNP 18:52
PROVIDERS: Visit Provider Emergency Medicine
DX: N89.8 Other specified noninflammatory disorders of vagina (principal)
CPT/HCPCS: 36415; 81513; 87481; 87491; 87591; 87661

== ENCOUNTER 2023-08-29 07:59 | Outpatient (AMB) | payer OTHER, SELFPAY ==
--- NOTE | 2023-08-29 08:54 | MHC.OFFVIS ---
Intake Vital Signs 08/29/23 08:55 Height 5 ft 3 in Weight 152 lb BMI 26.9 BP 128/70 Blood Pressure Location Lt brachial Position Sitting Pulse 69 Pulse Source Pulse Oximeter Pulse Oximetry (%) 96 Oxygen Delivery Method Room Air Intake Visit Reasons: copd Capsule Filling Machine Operator Required: No Allergies calcium Allergy (Severe, Verified 08/29/23 08:57) Nausea HPI HPI Comments History of Present Illness Details The patient is an 83-year-old woman with a known history of asthma was in usual state health until the end of April when she was in her apartment and she felt some strong scent bleach in fumes. She had a hard time sleeping that a her breathing became significantly worse. She was brought to the [facility] via ambulance. She was given prednisone in addition to more respiratory therapy. After that she patient underwent a CT scan of the chest in the ER ruling out pulmonary emboli. Her lungs appear to be restricted without a significant airspace disease. Her respiratory status now is back to her baseline. She has not had to use her rescue inhaler. She now completed a course of prednisone. Based on the fact that she is feeling better will going to have her undergo an overnight oximetry to make sure that she is not developing any significant proxy at nighttime in addition to that will have her undergo pulmonary function studies. 01/03/2022 the patient is here for a pulmonary follow-up visit. She continues to have some dyspnea on exertion. Mild in severity. She did undergo a overnight oximetry which demonstrated some degree of hypoxia. She did qualify for oxygen. However, the patient has been reluctant to use oxygen this time. She believes that this study was limited because she did not use it. She was also up most of the night. In addition to that she did undergo pulmonary function studies demonstrated a mild restrictive ventilatory defect consistent with the interstitial findings on the CT scan. Therefore this time will going to have her undergo blood work to try to address the restrictive lung disease In the inflammatory changes. Will re-evaluate in 2 months. She does have diabetes therefore the use of steroids will have adverse effects and therefore hold off at this time. When she returns to a follow-up visit we will at that point repeat her overnight oximetry in a couple months. 05/02/2022 the patient is here for pulmonary follow-up visit. Patient overall has been feeling well. She does have dyspnea on exertion. Zarm-lf-obilgujp severity. Denies any chest discomfort at this time. Previously blood work was positive for an elevated NARCISA titer. Therefore she did undergo additional blood work and her double-stranded DNA was also positive. Patient has underlying pneumonitis and interstitial lung disease the suspicion is that this is to be secondary to a connective tissue disease. The patient responded well to Plaquenil. She needs to be set up with Rheumatology at this time. will go ahead and put a referral in to Rheumatology. In the meantime the patient will continue with the Plaquenil. She is tolerating it and is not developing any visual changes. In view of her diabetes will hold off on any cortical steroid therapy. the patient last CT scan was back in November 2021 demonstrating the ground-glass opacities. Her chest x-ray in December was reassuring. The patient will be set up for additional imaging studies during her follow-up visit. 09/02/2022 the patient is here for pulmonary follow-up visit. She has been doing better. Denies any significant dyspnea on exertion. Does have intermittent cough which is usually nonproductive in nature. Overall she feels like her breathing is better. The patient was supposed to have a chest x-ray but has not had 1 as of yet. I will request that she undergo a chest x-ray. In addition to that we did review her overnight oximetry from back in December which she did desaturate briefly down to the low 80s. The patient is open to starting oxygen to use nocturnally if she needs it. Therefore will repeat the overnight test at this time. to continues to be on the Plaquenil. Denies any visual changes. She does complaint of injury or a area of swelling that she has in her left lower extremity. She states that it started like a pimple and now is gotten red and tender. Appears to be a little bit area of Cellulitis with likely a component of phlebitis. Patient benefit from a course of antibiotics. Based on the fact that the patient's respiratory status is unchanged or improved I will hold off on any immunomodulator therapy or immunosuppressive therapy. The patient will undergo the overnight oximetry in the chest x-ray prior to the next visit. 03/03/2023 the patient is here for a pulmonary follow-up visit. The patient is doing well from a respiratory status. She does have a rescue inhaler that she does not have to use regularly. The patient is sleeping well and she is waking up rested. Denies any headaches in the morning. We did review the overnight oximetry demonstrating that she did desaturate below 88% for about 20 minutes. I did offer oxygen supplementation at nighttime. However, the patient does not feel that she needs and does not want to pursue that at this time. She is complaining of significant unsteadiness on her feet and muscle in the skeletal discomforts. The patient does have a cane. She definitely needs to be with her walker. She is going to use it as she has 1 at home. She would like to hold off on the oxygen at this point. She does continue on the Plaquenil with good effects. No evidence of any active pneumonitis on her last x-ray. Will have her repeat the x-ray at this time. 08/29/2023 the patient is here for a pulmonary follow-up visit. She is doing very well. She denies any shortness of breath or chest discomfort. Although she she does have some episodic chest and back discomfort at times. It is usually fleeting. She has been on the Plaquenil with good results. We did look at the x-ray that she had back in February 2023 which is reassuring demonstrating only minimal chronic changes in otherwise no acute disease. Patient otherwise is doing well on the current therapy. No additional therapy is warranted apparent will follow-up in 6 months with a chest x-ray. The patient has a MAX and she has not needed it. 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 Review of Systems Const Denies night sweats ENT Denies change in voice, Denies lip swelling, Denies mouth pain, Reports nasal congestion, Reports nasal discharge and Denies tongue swelling Card Denies chest pain and Denies dyspnea on exertion Resp Reports cough and Denies dyspnea on exertion GI Denies abdominal pain Musc Denies no additional complaints and Reports abnormal gait Skin/Breast Denies erythema Neuro Denies Neuro-related abnormal movements and Reports abnormal gait Psych Denies no additional complaints Franck/Lymph Denies easy bleeding and Denies lymphadenopathy Aller/Immun Denies lip swelling and Denies tongue swelling Physical Exam Vital Signs: Last Vital Signs Pulse 69 08/29/23 08:55 BP 128/70 08/29/23 08:55 Pulse Ox 96 08/29/23 08:55 Oxygen Delivery Method Room Air 08/29/23 08:55 BMI result Body Mass Index 26.9 Const General: alert Neck Neck: Yes normal visual inspection, Yes full ROM and Yes no lymphadenopathy Chest Chest palpation & inspection: normal inspection of the chest Resp Auscultation: diminished lung sounds Cardio Rate: regular rate Rhythm: regular rhythm Heart sounds: S1 normal heart sound present and S2 normal heart sound present GI Palpation (GI): Soft to palpation and nontender Auscultation: normal bowel sounds Skin General skin exam: rashes and/or lesions noted Extrem Right lower extremity: lower leg Details: tenderness Assessment & Plan Assessment & Plan (1) ILD (interstitial lung disease): Code(s): J84.9 - Interstitial pulmonary disease, unspecified (2) Pneumonitis: Comment: +NARCISA and +dsDNA Code(s): J18.9 - Pneumonia, unspecified organism (3) Chronic restrictive lung disease: Code(s): J98.4 - Other disorders of lung (4) Asthma: Code(s): J45.909 - Unspecified asthma, uncomplicated Qualifiers: Asthma complication type: uncomplicated Asthma persistence: intermittent Asthma severity: mild Qualified Code(s): J45.20 - Mild intermittent asthma, uncomplicated (5) Reactive airways dysfunction syndrome: Code(s): J68.3 - Other acute and subacute respiratory conditions due to chemicals, gases, fumes and vapors Plan: The patient describes developing her respiratory symptoms after exposure to a few more toxin. This may have resulted in some small airways disease and bronchospasms. Symptoms appeared to have improved. Plan Continue the short-acting beta agonist as needed continue plaquenil repeat CXR in 6 months repear 6MWT in 6 months No immunosupression and antifibrotic agents in view of her clinical improvement. F/U 6 months Coding Level of Care Code Est Pt Level 4 (22585) Diagnoses ILD (interstitial lung disease) J84.9 Pneumonitis J18.9 Chronic restrictive lung disease J98.4 Mild intermittent asthma without complication J45.20 Asthma complication type: uncomplicated Asthma persistence: intermittent Asthma severity: mild Reactive airways dysfunction syndrome J68.3 Time Spent (min) 15
[2023-08-29 08:55] VITALS: BP 128/70; PULSE 69; O2SAT 96; BMI 26.9
== END 2023-08-29 09:08 | disposition home or self-care (01) ==
PROVIDERS: PCP Internal Medicine Geriatric Medicine; Visit Provider Hospitalist
DX: J84.9 Interstitial pulmonary disease, unspecified (principal); J98.4 Other disorders of lung; J45.20 Mild intermittent asthma, uncomplicated; J68.3 Other acute and subacute respiratory conditions due to chemicals, gases, fumes and vapors
CPT/HCPCS: 99214

== ENCOUNTER → 2023-08-29 07:59 | Outpatient (BNVA) | payer OTHER, SELFPAY | PROVIDERS: PCP Internal Medicine Geriatric Medicine; Visit Provider Hospitalist | DX: J84.9 Interstitial pulmonary disease, unspecified (principal); J18.9 Pneumonia, unspecified organism; J98.4 Other disorders of lung; J45.20 Mild intermittent asthma, uncomplicated; J68.3 Other acute and subacute respiratory conditions due to chemicals, gases, fumes and vapors | CPT/HCPCS: 99212 ==

== ENCOUNTER 2023-12-10 08:02 | Outpatient (REF) | payer OTHER, SELFPAY ==
[2023-12-10 11:50] LABS: Creatinine Urine 78.93 mg/dL; Microalbum/Creatinine Ratio Ur 39.2 ug/mg cr (<30)
[2023-12-10 12:05] LABS: Alanine Aminotransferase 24 U/L (0-31); Albumin Level 3.8 g/dL (3.5-5.0); Alkaline Phosphatase 136 U/L (39-117); Anion Gap 14 (12-20); Aspartate Amino Transferase 28 U/L (5-31); Bilirubin Total 0.5 mg/dL (0.0-1.0); Blood Urea Nitrogen 13 mg/dL (9-16); Calcium 9.8 mg/dL (8.4-10.2); Carbon Dioxide 30 mmol/L (22-29); Chloride 101 mmol/L (96-108); Cholesterol 179 mg/dL (<200); Estimated Glomerular Filt Rate > 60; Glucose Random 81 mg/dL (60-115); HDL Cholesterol 52 mg/dL (>40); LDL Cholesterol Calculated 104 mg/dL (<100); Potassium 4.4 mmol/L (3.3-5.1); Sodium 141 mmol/L (135-145); Total Protein 8.5 g/dL (6.5-8.0); Triglycerides 115 mg/dL (<150)
== END 2023-12-10 08:03 | disposition home or self-care (01) ==
LOC: HO.HHCL 08:02
PROVIDERS: Visit Provider Internal Medicine Geriatric Medicine
DX: E11.65 Type 2 diabetes mellitus with hyperglycemia (principal); I10 Essential (primary) hypertension; Z79.4 Long term (current) use of insulin
CPT/HCPCS: 36415; 80053; 80061; 82043; 82570

== ENCOUNTER 2024-01-13 12:29 | Outpatient (REF) | payer OTHER, SELFPAY ==
--- NOTE | ~2024-01-13 | XR_ITS ---
EXAMINATION: XR CHEST CLINICAL INFORMATION: Cough and restrictive lung disease, wheezing for one week COMPARISON: None available. TECHNIQUE: 2 views of the chest were obtained. FINDINGS: The lungs are well-expanded and clear. The heart size and pulmonary vascularity is normal. There is moderate scoliosis of dorsal spine. No aggressive lytic or sclerotic process seen. XR/XR chest 2V IMPRESSION: Moderate scoliosis of dorsal spine. No acute process seen.
== END 2024-01-13 12:30 | disposition home or self-care (01) ==
LOC: HO.HHCX 12:29
PROVIDERS: Visit Provider Emergency Medicine
DX: R05.9 Cough, unspecified (principal); J98.4 Other disorders of lung
CPT/HCPCS: 71046

== ENCOUNTER 2024-01-20 12:12 | Outpatient (REF) | payer OTHER, SELFPAY ==
--- NOTE | ~2024-01-20 | XR_ITS ---
EXAMINATION: XR CHEST CLINICAL INFORMATION: Interstitial pulmonary disease. COMPARISON: 01/13/2024 TECHNIQUE: 2 views of the chest were obtained. FINDINGS: The heart and pulmonary vessels appear normal. Mild bronchial thickening is seen. No consolidations, pleural effusions or suspicious lung masses. Old fractures and deformities of the left-sided ribs are present and unchanged. There is a biconvex thoracolumbar scoliosis. Surgical clips are present in the right upper quadrant. XR/XR chest 2V IMPRESSION: Mild bronchial thickening. No acute intrathoracic disease.
== END 2024-01-20 12:13 | disposition home or self-care (01) ==
LOC: HO.XRAY 12:12
PROVIDERS: PCP Internal Medicine Geriatric Medicine; Visit Provider Hospitalist
DX: J84.9 Interstitial pulmonary disease, unspecified (principal)
CPT/HCPCS: 71046

== ENCOUNTER 2024-02-16 19:41 | Outpatient (REF) | payer OTHER, SELFPAY | END 2024-02-16 19:42 | disposition home or self-care (01) | LOC: HO.HHCLNP 19:41 | PROVIDERS: Visit Provider Emergency Medicine | DX: R39.9 Unspecified symptoms and signs involving the genitourinary system (principal) | CPT/HCPCS: 87086 ==

== ENCOUNTER 2024-02-20 08:21 | Outpatient (AMB) | payer OTHER, SELFPAY ==
[2024-02-20 08:50] VITALS: PULSE 77; O2SAT 97; BMI 29.2
--- NOTE | 2024-02-20 08:50 | MHC.OFFVIS ---
Vital Signs 02/20/24 08:50 Height 5 ft 3 in Weight 165 lb BMI 29.2 Pulse 77 Pulse Source Pulse Oximeter Pulse Oximetry (%) 97 Oxygen Delivery Method Room Air Intake Visit Reasons: copd Permastone Installer Required: No Allergies calcium Allergy (Severe, Verified 02/20/24 08:51) Nausea HPI Comments Details: The patient is an 83-year-old woman with a known history of asthma was in usual state health until the end of April when she was in her apartment and she felt some strong scent bleach in fumes. She had a hard time sleeping that a her breathing became significantly worse. She was brought to the [facility] via ambulance. She was given prednisone in addition to more respiratory therapy. After that she patient underwent a CT scan of the chest in the ER ruling out pulmonary emboli. Her lungs appear to be restricted without a significant airspace disease. Her respiratory status now is back to her baseline. She has not had to use her rescue inhaler. She now completed a course of prednisone. Based on the fact that she is feeling better will going to have her undergo an overnight oximetry to make sure that she is not developing any significant proxy at nighttime in addition to that will have her undergo pulmonary function studies. 09/02/2022 the patient is here for pulmonary follow-up visit. She has been doing better. Denies any significant dyspnea on exertion. Does have intermittent cough which is usually nonproductive in nature. Overall she feels like her breathing is better. The patient was supposed to have a chest x-ray but has not had 1 as of yet. I will request that she undergo a chest x-ray. In addition to that we did review her overnight oximetry from back in December which she did desaturate briefly down to the low 80s. The patient is open to starting oxygen to use nocturnally if she needs it. Therefore will repeat the overnight test at this time. to continues to be on the Plaquenil. Denies any visual changes. She does complaint of injury or a area of swelling that she has in her left lower extremity. She states that it started like a pimple and now is gotten red and tender. Appears to be a little bit area of Cellulitis with likely a component of phlebitis. Patient benefit from a course of antibiotics. Based on the fact that the patient's respiratory status is unchanged or improved I will hold off on any immunomodulator therapy or immunosuppressive therapy. The patient will undergo the overnight oximetry in the chest x-ray prior to the next visit. 03/03/2023 the patient is here for a pulmonary follow-up visit. The patient is doing well from a respiratory status. She does have a rescue inhaler that she does not have to use regularly. The patient is sleeping well and she is waking up rested. Denies any headaches in the morning. We did review the overnight oximetry demonstrating that she did desaturate below 88% for about 20 minutes. I did offer oxygen supplementation at nighttime. However, the patient does not feel that she needs and does not want to pursue that at this time. She is complaining of significant unsteadiness on her feet and muscle in the skeletal discomforts. The patient does have a cane. She definitely needs to be with her walker. She is going to use it as she has 1 at home. She would like to hold off on the oxygen at this point. She does continue on the Plaquenil with good effects. No evidence of any active pneumonitis on her last x-ray. Will have her repeat the x-ray at this time. 08/29/2023 the patient is here for a pulmonary follow-up visit. She is doing very well. She denies any shortness of breath or chest discomfort. Although she she does have some episodic chest and back discomfort at times. It is usually fleeting. She has been on the Plaquenil with good results. We did look at the x-ray that she had back in February 2023 which is reassuring demonstrating only minimal chronic changes in otherwise no acute disease. Patient otherwise is doing well on the current therapy. No additional therapy is warranted apparent will follow-up in 6 months with a chest x-ray. The patient has a MAX and she has not needed it. 02/20/2024 the patient is here for a pulmonary follow-up visit. Overall the patient is doing better. She was sick about 3 4 weeks ago. She went to the urgent Care at [facility] thinking she had COVID. Had significant sinusitis symptoms and bronchitis. She tested negative for COVID. The patient was treated with a course of antibiotics. She partially improved. More recently she did undergo a chest x-ray here at [facility] ordered by me. I personally reviewed it. It appears that she has still some evidence of bronchitis. Otherwise no evidence of any interstitial lung disease. Denies any significant shortness of breath. Will go ahead and start her on doxycycline for 10 days. Otherwise she will continue with the Plaquenil. No evidence of any pneumonitis at this time. 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 Review of Systems Const Denies night sweats ENT Denies change in voice, Denies lip swelling, Denies mouth pain, Reports nasal congestion, Reports nasal discharge and Denies tongue swelling Card Denies chest pain and Denies dyspnea on exertion Resp Reports cough and Denies dyspnea on exertion GI Denies abdominal pain Musc Denies no additional complaints and Reports abnormal gait Skin/Breast Denies erythema Neuro Denies Neuro-related abnormal movements and Reports abnormal gait Psych Denies no additional complaints Franck/Lymph Denies easy bleeding and Denies lymphadenopathy Aller/Immun Denies lip swelling and Denies tongue swelling Physical Exam Vital Signs: Last Vital Signs Pulse 77 02/20/24 08:50 Pulse Ox 97 02/20/24 08:50 Oxygen Delivery Method Room Air 02/20/24 08:50 BMI result Body Mass Index 29.2 Const General: alert Neck Neck: Yes normal visual inspection, Yes full ROM and Yes no lymphadenopathy Chest Chest palpation & inspection: normal inspection of the chest Resp Auscultation: diminished lung sounds Cardio Rate: regular rate Rhythm: regular rhythm Heart sounds: S1 normal heart sound present and S2 normal heart sound present GI Palpation (GI): Soft to palpation and nontender Auscultation: normal bowel sounds Skin General skin exam: rashes and/or lesions noted Extrem Right lower extremity: lower leg Details: tenderness Assessment & Plan Assessment & Plan (1) ILD (interstitial lung disease): Code(s): J84.9 - Interstitial pulmonary disease, unspecified Category: Medical (2) Pneumonitis: Comment: +NARCISA and +dsDNA Code(s): J18.9 - Pneumonia, unspecified organism Category: Medical (3) Chronic restrictive lung disease: Code(s): J98.4 - Other disorders of lung Category: Medical (4) Asthma: Code(s): J45.909 - Unspecified asthma, uncomplicated Category: Medical Qualifiers: Asthma complication type: uncomplicated Asthma persistence: intermittent Asthma severity: mild Qualified Code(s): J45.20 - Mild intermittent asthma, uncomplicated (5) Reactive airways dysfunction syndrome: Code(s): J68.3 - Other acute and subacute respiratory conditions due to chemicals, gases, fumes and vapors Category: Medical Plan: The patient describes developing her respiratory symptoms after exposure to a few more toxin. This may have resulted in some small airways disease and bronchospasms. Symptoms appeared to have improved. Plan Continue the short-acting beta agonist as needed continue plaquenil No immunosupression and antifibrotic agents in view of her clinical improvement. doxycycline x 10 days F/U 6 months Medications: Refilled doxycycline hyclate 100 mg PO BID 20 caps 0RF 10 days Coding Level of Care Code Est Pt Level 4 (65667) Diagnoses ILD (interstitial lung disease) J84.9 Pneumonitis J18.9 Chronic restrictive lung disease J98.4 Mild intermittent asthma without complication J45.20 Asthma complication type: uncomplicated Asthma persistence: intermittent Asthma severity: mild Reactive airways dysfunction syndrome J68.3 Time Spent (min) 17
== END 2024-02-20 09:05 | disposition home or self-care (01) ==
PROVIDERS: PCP Internal Medicine Geriatric Medicine; Visit Provider Hospitalist
DX: J84.9 Interstitial pulmonary disease, unspecified (principal); J98.4 Other disorders of lung; J45.20 Mild intermittent asthma, uncomplicated; J68.3 Other acute and subacute respiratory conditions due to chemicals, gases, fumes and vapors
CPT/HCPCS: 99214

== ENCOUNTER → 2024-02-20 08:21 | Outpatient (BNVA) | payer OTHER, SELFPAY | PROVIDERS: PCP Internal Medicine Geriatric Medicine; Visit Provider Hospitalist | DX: J84.9 Interstitial pulmonary disease, unspecified (principal); J18.9 Pneumonia, unspecified organism; J98.4 Other disorders of lung; J45.20 Mild intermittent asthma, uncomplicated; J68.3 Other acute and subacute respiratory conditions due to chemicals, gases, fumes and vapors; Z79.899 Other long term (current) drug therapy | CPT/HCPCS: 99212 ==

== ENCOUNTER → 2024-02-27 07:53 | Outpatient (BNVA) | payer OTHER, SELFPAY | PROVIDERS: PCP Internal Medicine Geriatric Medicine; Visit Provider Nurse Practitioner Family ==

== ENCOUNTER 2024-05-25 18:23 | Outpatient (REF) | payer OTHER, SELFPAY ==
[2024-05-25 18:58] LABS: Appearance Urine Cloudy; Color Urine Dark Yellow; Glucose Urine UA Negative (Negative); Leukocyte Esterase Urine Moderate (2+) (Negative); Nitrite Urine Negative (Negative); PH 5.5 (5.0-9.0); UMIC TRIGGER UACC YES; Urine Blood Negative (Negative); Urine Ketones Negative (Negative); Urine Protein Negative (Neg-Trace)
[2024-05-25 19:00] LABS: Bacteria Urine 2+ (None Seen); Hyaline Casts Urine 0-2 /LPF (0-2); RBC Urine 0-2 /HPF (0-2); Squamous Epithelial Cell Urine >20 /HPF (0-2); UACC Culture Trigger YES
== END 2024-05-25 18:24 | disposition home or self-care (01) ==
LOC: HO.HHCLNP 18:23
PROVIDERS: Visit Provider Internal Medicine Geriatric Medicine
DX: N39.0 Urinary tract infection, site not specified (principal)
CPT/HCPCS: 81001; 87086

== ENCOUNTER 2024-07-23 11:44 | Emergency (ER) | payer OTHER, SELFPAY ==
--- NOTE | ~2024-07-23 | CT_ITS ---
EXAMINATION: CT ABDOMEN AND PELVIS WITHOUT CONTRAST CLINICAL INFORMATION: diffuse abd pain COMPARISON: CT abdomen 02/17/2015, MR abdomen 03/06/2015 TECHNIQUE: Multidetector volumetric imaging was performed from the superior aspect of the liver through the pubic symphysis. Sagittal and coronal reformatted images were obtained on the technologist's workstation. This CT examination was performed using dose optimization techniques as appropriate, variously including the following: *Automated exposure control *Adjustment of mA and/or kV according to patient size (this includes techniques or standardized protocols for targeted exams where dose is matched to indication/reason for exam; i.e. extremities or head) *Use of iterative reconstruction technique DLP: 476 mGy-cm FINDINGS: LUNG BASES: Bibasilar atelectasis. No pleural effusion. Normal-sized heart without pericardial effusion. LIVER, GALLBLADDER, AND BILIARY TREE: Coarse left liver calcifications again seen. Subcentimeter left liver hypodense lesion favored to represent a simple cyst, again seen. No suspicious focal liver lesion. The liver is normal in size, shape, and attenuation. No biliary ductal dilatation is present. Status post cholecystectomy. PANCREAS: Unremarkable. SPLEEN: Unremarkable. ADRENAL GLANDS: Unremarkable. KIDNEYS AND URETERS: Left upper pole 1.4 cm exophytic cyst is not significantly changed from MR 2015, for which no follow-up imaging is recommended. The kidneys are normal in size, shape, and attenuation. No hydronephrosis, hydroureter, or calculi seen. No perinephric stranding. BLADDER: Unremarkable. GASTROINTESTINAL TRACT: Small hiatal hernia. The small and large bowel are nondilated. Mild sigmoid diverticulosis without acute diverticulitis. Normal appendix. ABDOMINAL WALL: No significant hernia is appreciated. LYMPH NODES: Normal. VASCULAR: Abdominal aorta is nonaneurysmal with mild scattered atheromatous calcifications. PELVIC VISCERA: Status post hysterectomy. No adnexal masses. OSSEOUS STRUCTURES: No acute or suspicious osseous abnormality. Minor multilevel thoracolumbar spondylosis and degenerative disc disease, not significantly changed from 2015. CT/CT abdomen pelvis wo IV con IMPRESSION: 1. No acute abnormality in the abdomen or pelvis. 2. Small hiatal hernia. 3. Mild sigmoid diverticulosis without acute diverticulitis. Fleischner guidelines were followed. Electronically signed by: Ruby Figueredo DO 07/23/2024 03:08 PM EDT RP
--- NOTE | ~2024-07-23 | XR_ITS ---
EXAMINATION: XR ABDOMEN KUB CLINICAL INDICATION: Constipation for one month. COMPARISON: None available. TECHNIQUE: AP view of the abdomen. FINDINGS: The bowel gas pattern appears unremarkable, with no evidence of ileus or obstruction. No unusual soft tissue calcifications are noted. No evidence of soft tissue mass or organomegaly. Degenerative changes of the spine with thoracic levocurvature. There is post cholecystectomy. Surgical clip projects over the left upper quadrant. XR/XR KUB IMPRESSION: Unremarkable examination. Electronically signed by: Meet Shukla MD 07/23/2024 01:35 PM EDT
--- NOTE | 2024-07-23 11:47 | ED_ITS ---
HPI - General Adult General Chief complaint: General Medical Stated complaint: constipation Time Seen by Provider: 07/23/24 12:54 Source: patient Mode of arrival: ambulatory Limitations: no limitations History of Present Illness ED Provider: Ki LEVI HPI narrative: This is an 84-year-old female history of interstitial lung disease, a gamekeeper's thumb, vertigo, lupus, reactive airway dysfunction, asthma, restrictive lung disease presenting to the emergency department with concern of diffuse abdominal discomfort, nausea and constipation for the past 4 days. She reports prior to this she had nausea and vomiting however this has subsided. She reports yesterday she had a very small bowel movement not like her typical, she reports she still feels like she has to go and she has pressure in her abdomen. Denies fevers, chills, sick contacts, chest pain, shortness of breath, blood in stool, changes in urinary habits. Has tried milk of mag w/o relief Related Data Home Medications ?Medication ?Instructions ?Recorded ?Confirmed albuterol sulfate 2.5 mg/3 mL mg inhalation TID 07/10/21 08/15/23 (0.083 %) solution for nebulization aspirin 81 mg tablet,delayed 81 mg PO QPM 07/10/21 08/15/23 release hydrochlorothiazide 12.5 mg tablet 12.5 mg PO QAM 07/10/21 08/15/23 hydroxyzine HCl 25 mg tablet 25 mg PO TID PRN 07/10/21 08/15/23 omeprazole 40 mg capsule,delayed 40 mg PO DAILY 07/10/21 08/15/23 release simvastatin 20 mg tablet 20 mg PO QPM 07/10/21 08/15/23 triamcinolone acetonide 0.1 % topical 07/10/21 08/15/23 topical ointment bupropion HCl 75 mg tablet 75 mg PO DAILY PRN 03/07/22 08/15/23 blood pressure test kit-large #1 ea 05/02/22 08/15/23 blood sugar diagnostic (FreeStyle #10 ea 05/02/22 08/15/23 Lite Strips) blood-glucose meter (FreeStyle #1 ea 05/02/22 08/15/23 [place] Lite kit) clindamycin phosphate 1 % topical ml topical BID 05/02/22 08/15/23 solution lancets 33 gauge (TRUEplus Lancets) #100 ea 05/02/22 08/15/23 pen needle, diabetic 32 gauge x #50 ea 05/02/22 08/15/2332 (Pentips) lanolin alcohols-mineral 1 appl topical DAILY 08/13/22 08/15/23 oil-w.petrolatum-ceresin topical cream (Minerin Creme topical) nitrofurantoin 100 mg PO Q12H 08/13/22 08/15/23 monohydrate/macrocrystals 100 mg capsule (Macrobid) polyvinyl alcohol 1.4 % eye drops 1 drp ophthalmic (eye) TID-QID PRN 08/13/22 08/15/23 (Artificial Tears (polyvinyl alcohol)) pramipexole 0.125 mg tablet 0.125 mg PO TID 08/13/22 08/15/23 (Mirapex) metformin 500 mg tablet 1,000 mg PO BID 02/06/23 08/15/23 nebulizers 03/03/23 08/15/23 calcium carbonate 500 mg-vitamin 1 tab PO BID 08/29/23 D3 10 mcg (400 unit) chewable tablet insulin degludec 200 unit/mL (3 unit subcut 08/29/23 mL) subcutaneous pen (Tresiba FlexTouch U-200 insulin) linagliptin 5 mg tablet (Tradjenta) 5 mg PO DAILY 08/29/23 metoprolol succinate 100 mg 100 mg PO DAILY 08/29/23 tablet,extended release 24 hr amlodipine 10 mg-benazepril 40 mg 1 cap PO DAILY 02/20/24 capsule empagliflozin 25 mg-metformin ER PO 02/27/24 1,000 mg tablet,extended release 24hr (Synjardy XR) lisinopril 40 mg tablet 40 mg PO DAILY 02/27/24 Previous Rx's ?Medication ?Instructions ?Recorded compr.stocking,thigh,reg,small #2 ea 03/07/22 albuterol sulfate 90 mcg/actuation 2 puff inhalation QID PRN wheezing 03/03/23 aerosol inhaler #8.5 grams doxycycline hyclate 100 mg capsule 100 mg PO BID 10 days #20 caps 02/20/24 hydroxychloroquine 200 mg tablet 200 mg PO QPM #30 tabs 03/27/24 carbidopa 25 mg-levodopa 100 mg 1 tab PO QID 90 days #360 tabs 07/14/24 tablet docusate sodium 100 mg capsule 100 mg PO BID #20 caps 07/23/24 (Colace) polyethylene glycol 3350 17 17 g PO BID #238 grams 07/23/24 gram/dose oral powder (Miralax) sennosides 8.6 mg tablet (senna) 8.6 mg PO BEDTIME #14 tabs 07/23/24 Allergies Allergy/AdvReac Type Severity Reaction Status Date / Time calcium Allergy Severe Nausea Verified 07/23/24 11:50 Review of Systems 2 Review of Systems: Yes all other systems are reviewed and are negative [facility] Past Medical History Attestation statement: The following information was validated with the patient. Source: old records reviewed and nursing notes reviewed Medical History (Updated 07/23/24 @ 15:25 by GILBERTO Lainez) Lupus Parkinson disease NARCISA positive Pneumonitis Reactive airways dysfunction syndrome Asthma Chronic restrictive lung disease Surgical History (Updated 02/27/24 @ 08:24 by AI Unger) Hx of colonoscopy Family History Family History (Updated 02/27/24 @ 08:25 by AI Unger) Mother Diabetes Daughter Lupus Brother Cancer Colon cancer Son Colon cancer Social History Social History Alcohol intake: never Patient Tobacco Use Status: Never used Tobacco Advance Directives: No Advance Directives Information Provided: No Current occupational status: retired and disabled 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 Oriented X3.? No acute distress.? Head: Normocephalic, atraumatic, no step-offs or deformities Eyes: Pupils equal, round and reactive to light.? CVS: Normal heart rate and rhythm.? Pulses normal.? Respiratory: No respiratory distress.? Breath sounds normal.? Abdomen: Soft and nontender.?Normal BS throughout Skin: Skin warm and dry.? Normal skin color.? Normal skin turgor.? Extremities: No lower extremity edema.? No calf ttp. 5/5 strength to bilateral upper and lower extremities Back: No midline tenderness, no C-spine tenderness, full range of motion, no CVA tenderness bilaterally Neuro: Oriented X 3.? No motor deficit.? No sensory deficit. Course Course Course Narrative: This is a Rapid Medical Examination (RME) performed by Jacque Grace PA-C in triage. Full HPI, ROS, assessment and treatment plan per primary provider in the Main ED. 84 yo female hx of parkinson, asthma, ILD here for eval of constipation x1 mo. Last full BM 2 days ago, reports small BM this morning. has gone through 3 bottles of milk of mag in the past 9 days. assoc nausea with 2 episodes of vomiting. reports lower abd discomfort. seen at walk-in today, advised to come here for further eval. + abd soft, mildly distended, nontender, no rebound or guarding. Plan: labs, KUB Reevaluation(s) Reevaluation #1: CBC no acute findings. Chemistry unremarkable. UA clean. CT abdomen and pelvis no acute abnormalities in abdomen or pelvis small hiatal hernia small sigmoid diverticulosis w/o acute abnormalities. 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 PO 07/23/24 13:35 10 mg ONCE ONE Administration Docusate Sodium 100 mg 07/23/24 13:34 07/23/24 13:58 Docusate Sodium 100 Mg Capsule PO 07/23/24 13:35 100 mg ONCE ONE Administration Polyethylene Glycol 17 gm 07/23/24 13:34 07/23/24 13:58 Polyethylene Glycol 3350 17 Gm Powd.Pack PO 07/23/24 13:35 17 gm ONCE ONE Administration Senna 17.2 mg 07/23/24 13:34 07/23/24 14:48 Sennosides Oral Syrup 8.8 Mg/5 Ml PO 07/23/24 13:35 17.2 mg ONCE ONE Administration Medical Decision Making Medical Decision Making [facility] Narrative: 34-year-old female presents with constipation, nausea and abdominal discomfort x4 days Physical exam diffuse abdominal discomfort. This is likely functional constipation. Unlikely obstruction large or small no signs of acute abdomen. Other differentials include viral illness. No signs of acute abdomen unlikely metabolic derangements. Will rule out UTI Plan labs, urine, imaging Differential Diagnosis Differential Diagnoses: The differential diagnosis associated with the presentation includes This is likely functional constipation. Unlikely obstruction large or small no signs of acute abdomen. Other differentials include viral illness. No signs of acute abdomen unlikely metabolic derangements. Will rule out UTI Admission/Observation Consideration of admission/observation: Escalation of care including admission/observation considered possible Lab Data [facility] Lab Attestation statement: I reviewed the patient's lab results. 07/23/24 13:12 07/23/24 13:12 Labs: Lab Results 07/23/24 07/23/24 Range/Units 13:12 15:33 WBC 10.9 H (4.8-10.8) X10*3/uL RBC 5.09 (4.20-5.50) X10*6/uL Hgb 15.5 (12.0-16.0) g/dl Hct 46.4 (37.0-47.0) % MCV 91.2 (80.0-98.0) fL MCH 30.5 (27.0-33.0) pg MCHC 33.4 (31.0-35.0) g/dl RDW 12.6 (11.0-16.0) % Plt Count 245 (160-400) X10*3/uL MPV 9.8 (9.4-12.3) fL Immature Gran % (Auto) 0.2 (0.0-0.4) % Neut % (Auto) 72.6 (45-73) % Lymph % (Auto) 19.1 L (20-40) % [place] % (Auto) 6.6 (2-11) % Eos % (Auto) 1.1 (0-4) % Baso % (Auto) 0.4 (0-2) % Lymph # (Auto) 2.1 (1.2-4.9) X10*3/uL [place] # (Auto) 0.7 (0.1-1.2) X10*3/uL Eos # (Auto) 0.1 (0.0-0.4) X10*3/uL Baso # (Auto) 0.0 (0.0-0.2) X10*3/uL Abs Immat Gran (auto) 0.02 (0.00-0.03) X10*3/uL Absolute Neuts (auto) 7.9 (2.0-8.3) x10*3/uL Absolute Nucleated RBC 0.000 (0.0-0.012) X10*3/uL Nucleated RBC % (auto) 0.0 (0.0-0.2) /100WBC Sodium 140 (135-145) mmol/L Potassium 5.0 (3.3-5.1) mmol/L Chloride 105 (96-108) mmol/L Carbon Dioxide 29 (22-29) mmol/L Anion Gap 11 L (12-20) BUN 11 (9-16) mg/dL Creatinine 0.85 (0.5-1.4) mg/dL Estim Creat Clear Calc 45.5 Estimated GFR > 60 Random Glucose 108 (60-115) mg/dL Calcium 9.8 (8.4-10.2) mg/dL Magnesium 2.3 (1.6-2.6) mg/dL Total Bilirubin 0.6 (0.0-1.0) mg/dL AST 32 H (5-31) U/L ALT 27 (0-31) U/L Alkaline Phosphatase 112 (39-117) U/L Total Protein 7.8 (6.5-8.0) g/dL Albumin 3.6 (3.5-5.0) g/dL Lipase 13 (8-78) U/L Urine Color Yellow Urine Appearance Clear Urine pH 7.5 (5.0-9.0) Ur Specific Thurmond <= 1.005 (1.005-1.025) Urine Protein Negative (Neg-Trace) mg/dL Urine Glucose (UA) Negative (Negative) mg/dL Urine Ketones Negative (Negative) mg/dL Urine Blood Negative (Negative) Urine Nitrite Negative (Negative) Ur Leukocyte Esterase Negative (Negative) Independent Interpretation I performed an independent interpretation of an: Plain X-Ray and CT Scan Radiology Impression Discussion of test interpretation with radiology: I have reviewed the radiologist's reading. External Record Review External record reviewed: Inpatient record, Office record, Outpatient record, Prior outpatient labs, Prior outpatient radiology and Primary care record Chronic Conditions Patient?s care impacted by: Other (see hpi ) Critical Care Time Critical Care Time Critical Care Time: No Discharge Plan Discharge Clinical Impression: Abdominal pain, Constipation, Hernia Patient Disposition: Home, Self-Care Instructions: Constipation (ED), High Fiber Diet (ED), Abdominal Pain (ED) Additional Instructions: Take your medications as prescribed. If you were prescribed antibiotics today, it is important that you take your medication to their entirety, do not skip any doses, do not finish them early. Follow-up with your primary care provider this week. Return to the emergency department with new or worsening symptoms. Such as fevers, chills, chest pain, shortness of breath, nausea, vomiting, dizziness, headache, vision changes, lethargy In case of emergency call 911 CT/CT abdomen pelvis wo IV con IMPRESSION: 1. No acute abnormality in the abdomen or pelvis. 2. Small hiatal hernia. 3. Mild sigmoid diverticulosis without acute diverticulitis. Prescriptions: New sennosides [senna] 8.6 mg tablet 8.6 mg PO BEDTIME Qty: 14 0RF docusate sodium [Colace] 100 mg capsule 100 mg PO BID Qty: 20 0RF polyethylene glycol 3350 [Miralax] 17 gram/dose powder 17 g PO BID Qty: 238 0RF No Action hydroxychloroquine 200 mg tablet 200 mg PO QPM Qty: 30 11RF carbidopa-levodopa 25-100 mg tablet 1 tab PO QID 90 Days Qty: 360 1RF hydroxyzine HCl 25 mg tablet 25 mg PO TID PRN triamcinolone acetonide 0.1 % ointment topical omeprazole 40 mg capsule,delayed release(DR/EC) 40 mg PO DAILY albuterol sulfate 2.5 mg /3 mL (0.083 %) solution for nebulization inhalation TID simvastatin 20 mg tablet 20 mg PO QPM hydrochlorothiazide 12.5 mg tablet 12.5 mg PO QAM aspirin 81 mg tablet,delayed release (DR/EC) 81 mg PO QPM (DME) lancets [TRUEplus Lancets] 33 gauge misc See Rx Instructions topical .MEDSUPPLY Qty: 100 Rx Instructions: As directed (DME) FreeStyle Lite Strips Strip See Rx Instructions Not Applicable .MEDSUPPLY Qty: 10 Rx Instructions: As directed (DME) pen needle, diabetic [Pentips] 32 gauge x 5/32 needle See Rx Instructions .ROUTE .MEDSUPPLY Qty: 50 Rx Instructions: As directed (DME) blood pressure test kit-large Kit See Rx Instructions .ROUTE BID Qty: 1 Rx Instructions: As directed clindamycin phosphate 1 % solution topical BID (DME) blood-glucose meter [FreeStyle [place] Lite] Kit See Rx Instructions .ROUTE .MEDSUPPLY Qty: 1 Rx Instructions: As directed polyvinyl alcohol [Artificial Tears (polyvin alc)] 1.4 % drops 1 drp ophthalmic (eye) TID-QID PRN pramipexole [Mirapex] 0.125 mg tablet 0.125 mg PO TID Minerin Creme Cream 1 appl topical DAILY nitrofurantoin monohyd/m-cryst [Macrobid] 100 mg capsule 100 mg PO Q12H Rx Instructions: must administer with a meal/food metformin 500 mg tablet 1,000 mg PO BID bupropion HCl 75 mg tablet 75 mg PO DAILY PRN (DME) compr.stocking,thigh,reg,small Misc See Rx Instructions .Route Qty: 2 0RF Rx Instructions: As directed (DME) nebulizers Misc See Rx Instructions .Route Rx Instructions: As directed albuterol sulfate 90 mcg/actuation HFA aerosol inhaler 2 puff inhalation QID PRN (Reason: wheezing) Qty: 8.5 6RF amlodipine-benazepril 10-40 mg capsule 1 cap PO DAILY doxycycline hyclate 100 mg capsule 100 mg PO BID 10 Days Qty: 20 0RF insulin degludec [Tresiba FlexTouch U-200] 200 unit/mL (3 mL) insulin pen subcut Tradjenta 5 mg tablet 5 mg PO DAILY metoprolol succinate 100 mg tablet extended release 24 hr 100 mg PO DAILY calcium carbonate-vitamin D3 500 mg-10 mcg (400 unit) tablet,chewable 1 tab PO BID Synjardy XR 25-1,000 mg tablet, IR - ER, biphasic 24hr PO lisinopril 40 mg tablet 40 mg PO DAILY Referrals: Name,MD Narinder [Primary Care Provider] - 2 days Print Language: Tanzanian
[2024-07-23 11:49] VITALS: BP 169/96; PULSE 109; RESP 13; TEMP 36.1; O2SAT 99; BMI 27.5
[2024-07-23 13:20] LABS: MANUAL DIFF FLAG NO
[2024-07-23 13:22] LABS: Basophils Percent Auto 0.4 % (0-2); Eosinophils Absolute Auto 0.1 X10*3/uL (0.0-0.4); Eosinophils Percent Auto 1.1 % (0-4); Hematocrit 46.4 % (37.0-47.0); Hemoglobin 15.5 g/dl (12.0-16.0); Imm Gran Abs Auto 0.02 X10*3/uL (0.00-0.03); Imm Gran Pct Auto 0.2 % (0.0-0.4); Lymphocytes Absolute Auto 2.1 X10*3/uL (1.2-4.9); Lymphocytes Percent Auto 19.1 % (20-40); Mean Corpuscular HGB Conc 33.4 g/dl (31.0-35.0); Mean Corpuscular Hemoglobin 30.5 pg (27.0-33.0); Mean Corpuscular Volume 91.2 fL (80.0-98.0); Mean Platelet Volume 9.8 fL (9.4-12.3); Monocytes Absolute Auto 0.7 X10*3/uL (0.1-1.2); Monocytes Percent Auto 6.6 % (2-11); Neutrophils Absolute Auto 7.9 x10*3/uL (2.0-8.3); Neutrophils Percent Auto 72.6 % (45-73); Platelet Count 245 X10*3/uL (160-400); Red Blood Count 5.09 X10*6/uL (4.20-5.50); Red Cell Distribution Width 12.6 % (11.0-16.0); White Blood Count 10.9 X10*3/uL (4.8-10.8)
[2024-07-23 13:51] LABS: Alanine Aminotransferase 27 U/L (0-31); Albumin Level 3.6 g/dL (3.5-5.0); Alkaline Phosphatase 112 U/L (39-117); Anion Gap 11 (12-20); Aspartate Amino Transferase 32 U/L (5-31); Bilirubin Total 0.6 mg/dL (0.0-1.0); Blood Urea Nitrogen 11 mg/dL (9-16); Calcium 9.8 mg/dL (8.4-10.2); Carbon Dioxide 29 mmol/L (22-29); Chloride 105 mmol/L (96-108); Creatinine Clr Calc Pharmacy 45.5; Estimated Glomerular Filt Rate > 60; Glucose Random 108 mg/dL (60-115); Lipase 13 U/L (8-78); Magnesium 2.3 mg/dL (1.6-2.6); Sodium 140 mmol/L (135-145); Total Protein 7.8 g/dL (6.5-8.0)
[2024-07-23] MEDS: Docusate Sodium 100 MG CAPSULE PO (13:58)
[2024-07-23] MEDS: bisacodyL 5 MG TABLET.DR 10 MG PO (13:58)
[2024-07-23] MEDS: polyethylene glycoL 3350 17 GM POWD.PACK PO (13:58)
[2024-07-23 14:16] VITALS: BP 176/83; PULSE 77; RESP 12; TEMP 36.9
[2024-07-23] MEDS: Sennosides Oral Syrup 8.8 MG/5 ML 17.2 MG PO (14:48)
[2024-07-23 15:40] LABS: Appearance Urine Clear; Color Urine Yellow; Glucose Urine UA Negative (Negative); Leukocyte Esterase Urine Negative (Negative); Nitrite Urine Negative (Negative); PH 7.5 (5.0-9.0); Specific Gravity - Urine <= 1.005 (1.005-1.025); Urine Blood Negative (Negative); Urine Ketones Negative (Negative); Urine Protein Negative (Neg-Trace)
[2024-07-23 18:19] VITALS: BP 145/69; PULSE 99; RESP 16; TEMP 36.2; O2SAT 95
== END 2024-07-23 18:20 | disposition home or self-care (01) ==
PROVIDERS: Physician Assistant; Physician Assistant Medical; Emergency Provider Student in an Organized Health Care Education/Training Program; PCP Internal Medicine Geriatric Medicine
DX: K59.00 Constipation, unspecified (principal); R10.9 Unspecified abdominal pain; K44.9 Diaphragmatic hernia without obstruction or gangrene; M32.9 Systemic lupus erythematosus, unspecified; J45.909 Unspecified asthma, uncomplicated; G20.A1 Parkinson's disease without dyskinesia, without mention of fluctuations; Z79.82 Long term (current) use of aspirin; Z79.02 Long term (current) use of antithrombotics/antiplatelets; Z79.899 Other long term (current) drug therapy
CPT/HCPCS: 36415; 74018; 74176; 80053; 81003; 83690; 83735; 85025; 99283; 99284

== ENCOUNTER 2024-08-23 08:21 | Outpatient (AMB) | payer OTHER, SELFPAY ==
[2024-08-23 09:06] VITALS: BP 140/80; PULSE 80; O2SAT 97; BMI 27.3
--- NOTE | 2024-08-23 09:06 | MHC.OFFVIS ---
Vital Signs 08/23/24 09:06 Height 5 ft 3 in Weight 154 lb 5.177 oz BMI 27.3 BP 140/80 H Pulse 80 Pulse Source Pulse Oximeter Pulse Oximetry (%) 97 Oxygen Delivery Method Room Air Intake Visit Reasons: COPD follow-up [employer] Supervisor Required: Yes [employer] Supervisor Services: [employer] Supervisor Present [employer] Supervisor Name: Gisella [employer]: [employer] offered & declined Accompanied by: Self / Same As Patient Allergies calcium Allergy (Severe, Verified 07/23/24 11:50) Nausea Medication List - Last Reconciled 08/23/24 by Velma Dobbins LPN albuterol sulfate mg inhalation TID albuterol sulfate 90 mcg/actuation 2 puffs inhalation QID PRN amlodipine-benazepril 10-40 mg 1 cap PO DAILY aspirin 81 mg PO QPM blood pressure test kit-large As directed blood sugar diagnostic (FreeStyle Lite Strips) As directed blood-glucose meter (FreeStyle [place] Lite kit) As directed bupropion HCl 75 mg PO DAILY PRN calcium carbonate-vitamin D3 500 mg-10 mcg (400 unit) 1 tab PO BID carbidopa-levodopa 25-100 mg 1 tab PO QID 90 days clindamycin phosphate 1% mL topical BID compr.stocking,thigh,reg,small As directed docusate sodium (Colace) 100 mg PO BID doxycycline hyclate 100 mg PO BID 10 days empagliflozin-metformin 25-1,000 mg ER (Synjardy XR) PO hydrochlorothiazide 12.5 mg PO QAM hydroxychloroquine 200 mg PO QPM hydroxyzine HCl 25 mg PO TID PRN insulin degludec (Tresiba FlexTouch U-200 insulin) units subcut lancets (TRUEplus Lancets) As directed lanolin wfvnnca-hc-l.pet-ceres (Minerin Creme topical) 1 appl topical DAILY linagliptin (Tradjenta) 5 mg PO DAILY lisinopril 40 mg PO DAILY metformin 1,000 mg PO BID metoprolol succinate ER 100 mg PO DAILY nebulizers As directed nitrofurantoin monohyd/m-cryst 100 mg (Macrobid) 100 mg PO Q12H omeprazole 40 mg PO DAILY pen needle, diabetic (Pentips) As directed polyethylene glycol 3350 (Miralax) 17 grams PO BID polyvinyl alcohol 1.4% (Artificial Tears (polyvinyl alcohol)) 1 drp ophthalmic (eye) TID-QID PRN pramipexole (Mirapex) 0.125 mg PO TID sennosides (senna) 8.6 mg PO BEDTIME simvastatin 20 mg PO QPM triamcinolone acetonide 0.1% topical HPI Comments Details: The patient is an 84-year-old woman with a known history of asthma was in usual state health until the end of April when she was in her apartment and she felt some strong scent bleach in fumes. She had a hard time sleeping that a her breathing became significantly worse. She was brought to the [facility] via ambulance. She was given prednisone in addition to more respiratory therapy. After that she patient underwent a CT scan of the chest in the ER ruling out pulmonary emboli. Her lungs appear to be restricted without a significant airspace disease. Her respiratory status now is back to her baseline. She has not had to use her rescue inhaler. She now completed a course of prednisone. Based on the fact that she is feeling better will going to have her undergo an overnight oximetry to make sure that she is not developing any significant proxy at nighttime in addition to that will have her undergo pulmonary function studies. 09/02/2022 the patient is here for pulmonary follow-up visit. She has been doing better. Denies any significant dyspnea on exertion. Does have intermittent cough which is usually nonproductive in nature. Overall she feels like her breathing is better. The patient was supposed to have a chest x-ray but has not had 1 as of yet. I will request that she undergo a chest x-ray. In addition to that we did review her overnight oximetry from back in December which she did desaturate briefly down to the low 80s. The patient is open to starting oxygen to use nocturnally if she needs it. Therefore will repeat the overnight test at this time. to continues to be on the Plaquenil. Denies any visual changes. She does complaint of injury or a area of swelling that she has in her left lower extremity. She states that it started like a pimple and now is gotten red and tender. Appears to be a little bit area of Cellulitis with likely a component of phlebitis. Patient benefit from a course of antibiotics. Based on the fact that the patient's respiratory status is unchanged or improved I will hold off on any immunomodulator therapy or immunosuppressive therapy. The patient will undergo the overnight oximetry in the chest x-ray prior to the next visit. 03/03/2023 the patient is here for a pulmonary follow-up visit. The patient is doing well from a respiratory status. She does have a rescue inhaler that she does not have to use regularly. The patient is sleeping well and she is waking up rested. Denies any headaches in the morning. We did review the overnight oximetry demonstrating that she did desaturate below 88% for about 20 minutes. I did offer oxygen supplementation at nighttime. However, the patient does not feel that she needs and does not want to pursue that at this time. She is complaining of significant unsteadiness on her feet and muscle in the skeletal discomforts. The patient does have a cane. She definitely needs to be with her walker. She is going to use it as she has 1 at home. She would like to hold off on the oxygen at this point. She does continue on the Plaquenil with good effects. No evidence of any active pneumonitis on her last x-ray. Will have her repeat the x-ray at this time. 08/29/2023 the patient is here for a pulmonary follow-up visit. She is doing very well. She denies any shortness of breath or chest discomfort. Although she she does have some episodic chest and back discomfort at times. It is usually fleeting. She has been on the Plaquenil with good results. We did look at the x-ray that she had back in February 2023 which is reassuring demonstrating only minimal chronic changes in otherwise no acute disease. Patient otherwise is doing well on the current therapy. No additional therapy is warranted apparent will follow-up in 6 months with a chest x-ray. The patient has a MAX and she has not needed it. 02/20/2024 the patient is here for a pulmonary follow-up visit. Overall the patient is doing better. She was sick about 3 4 weeks ago. She went to the urgent Care at [facility] thinking she had COVID. Had significant sinusitis symptoms and bronchitis. She tested negative for COVID. The patient was treated with a course of antibiotics. She partially improved. More recently she did undergo a chest x-ray here at [place] ordered by me. I personally reviewed it. It appears that she has still some evidence of bronchitis. Otherwise no evidence of any interstitial lung disease. Denies any significant shortness of breath. Will go ahead and start her on doxycycline for 10 days. Otherwise she will continue with the Plaquenil. No evidence of any pneumonitis at this time. 08/23/2024 the patient is here for pulmonary follow-up visit. She does complaint exertion. [id number]-[id number] severity. She does use her rescue inhaler several times a day. At this time will place her on a maintenance inhaler, Wixela. In addition to that she had a CT scan of the abdomen back in 08/08/2024. I did personally reviewed. She did have some atelectasis at the bases. She had an x-ray back in 02/07/2024 demonstrating some bronchitis. She continues on the Plaquenil. I do believe that the Wixela will help with the chronic bronchitis issues in the bronchospasm although she still has other reasons for her shortness of breath. She does have restrictive lung disease. The patient will follow-up in 6 months. If she has any issues prior to that she will call for assessment [facility] Medical History (Updated 07/24/24 @ 00:00 by Romina Almendarez) Lupus Parkinson disease NARCISA positive Pneumonitis Reactive airways dysfunction syndrome Asthma Chronic restrictive lung disease Surgical History (Updated 02/27/24 @ 08:24 by AI Unger) Hx of colonoscopy Family History (Updated 02/27/24 @ 08:25 by AI Unger) Mother Diabetes Daughter Lupus Brother Cancer Colon cancer Son Colon cancer Social History (Updated 08/23/24 @ 09:09 by Velma Dobbins LPN) Alcohol intake: never Patient Tobacco Use Status: Never used Tobacco Current occupational status: retired and disabled 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 Review of Systems Const Denies night sweats ENT Denies change in voice, Denies lip swelling, Denies mouth pain, Reports nasal congestion, Reports nasal discharge and Denies tongue swelling Card Denies chest pain and Reports dyspnea on exertion Resp Reports cough and Reports dyspnea on exertion GI Denies abdominal pain Musc Denies no additional complaints and Reports abnormal gait Skin/Breast Denies erythema Neuro Denies Neuro-related abnormal movements and Reports abnormal gait Psych Denies no additional complaints Franck/Lymph Denies easy bleeding and Denies lymphadenopathy Aller/Immun Denies lip swelling and Denies tongue swelling Physical Exam Vital Signs: Last Vital Signs Pulse 80 08/23/24 09:06 BP 140/80 H 08/23/24 09:06 Pulse Ox 97 08/23/24 09:06 Oxygen Delivery Method Room Air 08/23/24 09:06 BMI result Body Mass Index 27.3 Const General: alert Neck Neck: Yes normal visual inspection, Yes full ROM and Yes no lymphadenopathy Chest Chest palpation & inspection: normal inspection of the chest Resp Effort & Inspection: normal respiratory effort Auscultation: diminished lung sounds Cardio Rate: regular rate Rhythm: regular rhythm Heart sounds: S1 normal heart sound present and S2 normal heart sound present GI Palpation (GI): Soft to palpation and nontender Auscultation: normal bowel sounds Skin General skin exam: rashes and/or lesions noted Extrem Right lower extremity: lower leg Details: tenderness Assessment & Plan Assessment & Plan (1) ILD (interstitial lung disease): Code(s): J84.9 - Interstitial pulmonary disease, unspecified Category: Medical (2) Pneumonitis: Comment: +NARCISA and +dsDNA Code(s): J18.9 - Pneumonia, unspecified organism Category: Medical (3) Chronic restrictive lung disease: Code(s): J98.4 - Other disorders of lung Category: Medical (4) Asthma: Code(s): J45.909 - Unspecified asthma, uncomplicated Category: Medical Qualifiers: Asthma severity: mild Asthma persistence: intermittent Asthma complication type: uncomplicated Qualified Code(s): J45.20 - Mild intermittent asthma, uncomplicated (5) Reactive airways dysfunction syndrome: Code(s): J68.3 - Other acute and subacute respiratory conditions due to chemicals, gases, fumes and vapors Category: Medical Plan: The patient describes developing her respiratory symptoms after exposure to a few more toxin. This may have resulted in some small airways disease and bronchospasms. Symptoms appeared to have improved. Plan Continue the short-acting beta agonist as needed Add Wixela continue plaquenil No immunosupression and antifibrotic agents in view of her clinical improvement. F/U 6 months Medications: New fluticasone propion-salmeterol 250-50 mcg/dose (Wixela Inhub) 1 inh inhalation Q12H 30 days 60 ea 11RF Coding Level of Care Code Est Pt Level 4 (65966) Diagnoses ILD (interstitial lung disease) J84.9 Pneumonitis J18.9 Chronic restrictive lung disease J98.4 Mild intermittent asthma without complication J45.20 Asthma severity: mild Asthma persistence: intermittent Asthma complication type: uncomplicated Reactive airways dysfunction syndrome J68.3 Time Spent (min) 17
== END 2024-08-23 09:30 | disposition home or self-care (01) ==
LOC: HO.HPS 08:21
PROVIDERS: PCP Internal Medicine Geriatric Medicine; Visit Provider Hospitalist
DX: J84.9 Interstitial pulmonary disease, unspecified (principal); J98.4 Other disorders of lung; J45.20 Mild intermittent asthma, uncomplicated; J68.3 Other acute and subacute respiratory conditions due to chemicals, gases, fumes and vapors
CPT/HCPCS: 99214

== ENCOUNTER → 2024-08-23 08:21 | Outpatient (BNVA) | payer OTHER, SELFPAY | PROVIDERS: PCP Internal Medicine Geriatric Medicine; Visit Provider Hospitalist | DX: J45.20 Mild intermittent asthma, uncomplicated (principal); J84.9 Interstitial pulmonary disease, unspecified; J68.3 Other acute and subacute respiratory conditions due to chemicals, gases, fumes and vapors; J98.4 Other disorders of lung; J18.9 Pneumonia, unspecified organism | CPT/HCPCS: 99212 ==

== ENCOUNTER 2024-09-01 11:05 | Outpatient (REF) | payer OTHER, SELFPAY ==
--- NOTE | ~2024-09-01 | XR_ITS ---
EXAMINATION: XR CHEST CLINICAL INFORMATION: Diffuse ribs pain COMPARISON: January 20, 2024 TECHNIQUE: 2 views of the chest were obtained. FINDINGS: There is dextroscoliosis of thoracic spine and there is processed fracture/post surgical deformity of the left hemithorax. There are no lung lesions or pleural effusion. XR/XR chest 2V IMPRESSION: No active cardiopulmonary disease Electronically signed by: Pan Johnston MD 09/01/2024 04:27 PM [facility]IMA
[2024-09-02 12:04] LABS: Bacterial Vaginosis PCR NEGATIVE (Negative); Candida Group PCR DETECTED (Not Detect); Candida glab krusei PCR NOT DETECTED (Not Detect); Trichomonas vaginalis PCR NOT DETECTED (Not Detect)
== END 2024-09-01 11:06 | disposition home or self-care (01) ==
LOC: HO.HHCX 11:05
PROVIDERS: Visit Provider Emergency Medicine
DX: R07.9 Chest pain, unspecified (principal); R39.9 Unspecified symptoms and signs involving the genitourinary system; Z20.2 Contact with and (suspected) exposure to infections with a predominantly sexual mode of transmission
CPT/HCPCS: 0352U; 71046

== ENCOUNTER 2024-09-07 07:45 | Emergency (ER) | payer OTHER, SELFPAY ==
--- NOTE | ~2024-09-07 | CT_ITS ---
EXAMINATION: CT ABDOMEN AND PELVIS WITH CONTRAST CLINICAL INFORMATION: Distended. Constipated. Vomiting. COMPARISON: CT dated July 23, 2024 TECHNIQUE: Multidetector volumetric images were obtained from the superior aspect of the liver through the pubic symphysis following administration 85 mL of Omnipaque 350 intravenous contrast without reported immediate complications. Sagittal and coronal reformatted images were obtained on the technologist's workstation. Oral contrast: No This CT examination was performed using dose optimization techniques as appropriate, variously including the following: *Automated exposure control *Adjustment of mA and/or kV according to patient size (this includes techniques or standardized protocols for targeted exams where dose is matched to indication/reason for exam; i.e. extremities or head) *Use of iterative reconstruction technique DLP: 544 mGy-cm FINDINGS: LUNG BASES: Pulmonary patchy groundglass with subtle mosaic pattern. LIVER, GALLBLADDER, AND BILIARY TREE: 15 cm. No focal mass. Subcentimeter hypodensity, too small to be fully characterized by CT. No intrahepatic biliary ductal dilatation. Main portal veins and hepatic veins are patent. Intrahepatic portion of the IVC is patent. Status post cholecystectomy likely laparoscopic. The common bile duct measures 4 mm. PANCREAS: No focal pancreatic mass. No peripancreatic fluid collection. No main pancreatic ductal dilatation. SPLEEN: 11 cm. No focal mass. ADRENAL GLANDS: Soft tissue fullness without nodular lesion. KIDNEYS AND URETERS: No renal mass. No hydronephrosis. Exophytic cyst in the posterior upper pole midportion of the left kidney. Normal enhancement pattern of the renal cortex and medulla. BLADDER: Wall thickening of the anterior lateral aspect. Fluid-filled. GASTROINTESTINAL TRACT: Numerous diverticula in the sigmoid colon. Abundant stool. No intestinal obstruction pattern. Gas and fluid in and nondilated small bowel loops. Terminal ileum is normal. Appendix is normal. No pneumatosis intestinalis. No ascites. No pneumoperitoneum. ABDOMINAL WALL: Diastases abdominal rectus muscles in the umbilical region. LYMPH NODES: No lymphadenopathy, mesenteric or retroperitoneal. VASCULAR: Calcified plaques throughout the abdominal aorta wall of the origin of the mesenteric arteries and main renal arteries as well as the iliac arteries. No aneurysm or dissection, abdominal aorta. PELVIC VISCERA: Absent uterus. Cystic appearance of the left adnexa measuring less than 2 cm. OSSEOUS STRUCTURES: Multilevel thoracolumbar spondylosis. Bilateral neuroforamina stenosis on a degenerative basis from L3-4 to L5-S1 more conspicuous at L4-5 and L5-S1 level. No acute fracture or gross listhesis. Calcified plaques in the coronary arteries. CT/CT abdomen pelvis w IV con IMPRESSION: Sigmoid colon diverticular disease. No intestinal obstruction pattern. Simple cyst, left kidney. Multilevel thoracolumbar spondylosis more conspicuous from L3-4 to L5-S1. Fleischner guidelines were followed. Electronically signed by: Fortunato Boyd MD 09/07/2024 11:15 AM MIMA CATALAN
[2024-09-07 08:06] VITALS: BP 146/88; PULSE 89; RESP 18; TEMP 36.8; O2SAT 98; BMI 26.9
--- NOTE | 2024-09-07 08:51 | ED_ITS ---
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 She feels tight and distended. States nothing is helping. Has no pain, denies prior SBO. MD complaint: constipation Onset (ago): day(s) (3) Location: abdomen Radiation: non-radiation Severity: mild Quality: aching Pain Consistency: intermittent Relieving factors: none Exacerbating factors: eating Associated symptoms: loss of appetite and nausea/vomiting Treatments prior to arrival: other Related Data Home Medications ?Medication ?Instructions ?Recorded ?Confirmed albuterol sulfate 2.5 mg/3 mL mg inhalation TID 07/10/21 08/23/24 (0.083 %) solution for nebulization aspirin 81 mg tablet,delayed 81 mg PO QPM 07/10/21 08/15/23 release hydrochlorothiazide 12.5 mg tablet 12.5 mg PO QAM 07/10/21 08/15/23 hydroxyzine HCl 25 mg tablet 25 mg PO TID PRN 07/10/21 08/15/23 omeprazole 40 mg capsule,delayed 40 mg PO DAILY 07/10/21 08/15/23 release simvastatin 20 mg tablet 20 mg PO QPM 07/10/21 08/15/23 triamcinolone acetonide 0.1 % topical 07/10/21 08/15/23 topical ointment bupropion HCl 75 mg tablet 75 mg PO DAILY PRN 03/07/22 08/15/23 blood pressure test kit-large #1 ea 05/02/22 08/15/23 blood sugar diagnostic (FreeStyle #10 ea 05/02/22 08/15/23 Lite Strips) blood-glucose meter (FreeStyle #1 ea 05/02/22 08/15/23 Creighton Lite kit) clindamycin phosphate 1 % topical ml topical BID 05/02/22 08/15/23 solution lancets 33 gauge (TRUEplus Lancets) #100 ea 05/02/22 08/15/23 pen needle, diabetic 32 gauge x #50 ea 05/02/22 08/15/23 (Pentips) lanolin alcohols-mineral 1 appl topical DAILY 08/13/22 08/15/23 oil-w.petrolatum-ceresin topical cream (Minerin Creme topical) nitrofurantoin 100 mg PO Q12H 08/13/22 08/15/23 monohydrate/macrocrystals 100 mg capsule (Macrobid) polyvinyl alcohol 1.4 % eye drops 1 drp ophthalmic (eye) TID-QID PRN 08/13/22 08/15/23 (Artificial Tears (polyvinyl alcohol)) pramipexole 0.125 mg tablet 0.125 mg PO TID 08/13/22 08/15/23 (Mirapex) metformin 500 mg tablet 1,000 mg PO BID 02/06/23 08/15/23 nebulizers 03/03/23 08/15/23 calcium carbonate 500 mg-vitamin 1 tab PO BID 08/29/23 D3 10 mcg (400 unit) chewable tablet insulin degludec 200 unit/mL (3 unit subcut 08/29/23 mL) subcutaneous pen (Tresiba FlexTouch U-200 insulin) linagliptin 5 mg tablet (Tradjenta) 5 mg PO DAILY 08/29/23 metoprolol succinate 100 mg 100 mg PO DAILY 08/29/23 tablet,extended release 24 hr amlodipine 10 mg-benazepril 40 mg 1 cap PO DAILY 02/20/24 capsule empagliflozin 25 mg-metformin ER PO 02/27/24 1,000 mg tablet,extended release 24hr (Synjardy XR) lisinopril 40 mg tablet 40 mg PO DAILY 02/27/24 Previous Rx's ?Medication ?Instructions ?Recorded compr.stocking,thigh,reg,small #2 ea 03/07/22 albuterol sulfate 90 mcg/actuation 2 puff inhalation QID PRN wheezing 03/03/23 aerosol inhaler #8.5 grams doxycycline hyclate 100 mg capsule 100 mg PO BID 10 days #20 caps 02/20/24 hydroxychloroquine 200 mg tablet 200 mg PO QPM #30 tabs 03/27/24 carbidopa 25 mg-levodopa 100 mg 1 tab PO QID 90 days #360 tabs 07/14/24 tablet docusate sodium 100 mg capsule 100 mg PO BID #20 caps 07/23/24 (Colace) polyethylene glycol 3350 17 17 g PO BID #238 grams 07/23/24 gram/dose oral powder (Miralax) sennosides 8.6 mg tablet (senna) 8.6 mg PO BEDTIME #14 tabs 07/23/24 fluticasone 250 mcg-salmeterol 50 1 inh inhalation Q12H 30 days #60 08/23/24 mcg/dose blistr powdr for ea inhalation (Wixela Inhub) magnesium citrate 150 ml PO DAILY 1 day #296 mL 09/07/24 sennosides 8.6 mg tablet (senna) 8.6 mg PO BEDTIME 10 days #10 tabs 09/07/24 Allergies Allergy/AdvReac Type Severity Reaction Status Date / Time calcium Allergy Severe Nausea Verified 09/07/24 08:09 Review of Systems 2 Review of Systems: Constitutional : No Weight loss, No Fever, No Chills ENT/Mouth : No sore throat, No Rhinorrhea Eyes: No Swelling, No Redness Cardiovascular : No Chest Pain, No SOB, NoEdema Respiratory : No Cough, No Sputum, No Wheezing Gastrointestinal : Positive Nausea, Positive Vomiting, no Diarrhea, positive abdominal Pain, No Hematochezia, No Melena, pos constipation Genitourinary : No Dysuria, No Urinary Frequency, No Hematuria, No Urgency Musculoskeletal : No joint pain, No Myalgias, No Joint Swelling Skin : No Skin Lesions, No rash Neuro : No Weakness, No Numbness, No Dizziness, No Headache All other systems reviewed and are negative. [facility] Past Medical History Attestation statement: The following information was validated with the patient. Source: old records reviewed Medical History Lupus Parkinson disease NARCISA positive Pneumonitis Reactive airways dysfunction syndrome Asthma Chronic restrictive lung disease Surgical History Hx of colonoscopy Family History Family History (Updated 02/27/24 @ 08:25 by AI Unger) Mother Diabetes Daughter Lupus Brother Cancer Colon cancer Son Colon cancer Social History Social History Alcohol intake: never Patient Tobacco Use Status: Never used Tobacco Advance Directives: No Advance Directives Information Provided: Yes Do you have a plan to hurt others: No Plan Current occupational status: retired and disabled 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 Oriented X3. No acute distress. Eyes: Pupils equal, round and reactive to light. ENT: Pharynx normal. Neck: Normal inspection. Neck supple. CVS: Normal heart rate and rhythm. Pulses normal. Respiratory: No respiratory distress. Breath sounds normal. Abdomen: Soft and non-tender. distended Skin: Skin warm and dry. Normal skin color. Normal skin turgor. Extremities: No lower extremity edema. No calf ttp Neuro: Oriented X 3. No motor deficit. No sensory deficit. Medications Administered Discontinued Medications Generic Name Dose Route Start Last Admin Trade Name Freq PRN Reason Stop Dose Admin Iohexol 85 ml 09/07/24 10:37 09/07/24 10:37 Iohexol 350 Mg/Ml 100 Ml Infus..Btl IV 09/07/24 10:38 85 ml ONCE ONE Administration Ondansetron HCl 4 mg 09/07/24 08:56 09/07/24 09:26 Ondansetron Hcl 4 Mg/2 Ml Vial IVPUSH 09/07/24 08:57 4 mg ONCE ONE Administration Medical Decision Making Medical Decision Making [facility] Narrative: 84 yo female with PMH of asthma, ILD, osteoporosis, lupus on plaquenil, HLD, DM parkinsons ds here with c/o constipation, distention, no flatus x 3 days, n/v at this time will need basic labs, UA, CT scan for SBO. Possible SBO, mass, constipation Differential Diagnosis Differential Diagnoses: The differential diagnosis associated with the presentation includes constipation, SBO, mass Admission/Observation Consideration of admission/observation: Escalation of care including admission/observation considered labs reassuring no SBO will start on colace and senna PRN suppository as well Lab Data [facility] Lab Attestation statement: I reviewed the patient's lab results. UA contaminated 09/07/24 09:22 09/07/24 09:22 Labs: Lab Results 09/07/24 09/07/24 Range/Units 09:22 09:59 WBC 9.7 (4.8-10.8) X10*3/uL RBC 5.02 (4.20-5.50) X10*6/uL Hgb 15.3 (12.0-16.0) g/dl Hct 46.0 (37.0-47.0) % MCV 91.6 (80.0-98.0) fL MCH 30.5 (27.0-33.0) pg MCHC 33.3 (31.0-35.0) g/dl RDW 13.0 (11.0-16.0) % Plt Count 256 (160-400) X10*3/uL MPV 9.8 (9.4-12.3) fL Immature Gran % (Auto) 0.1 (0.0-0.4) % Neut % (Auto) 66.0 (45-73) % Lymph % (Auto) 23.5 (20-40) % [place] % (Auto) 6.3 (2-11) % Eos % (Auto) 3.6 (0-4) % Baso % (Auto) 0.5 (0-2) % Lymph # (Auto) 2.3 (1.2-4.9) X10*3/uL [place] # (Auto) 0.6 (0.1-1.2) X10*3/uL Eos # (Auto) 0.4 (0.0-0.4) X10*3/uL Baso # (Auto) 0.1 (0.0-0.2) X10*3/uL Abs Immat Gran (auto) 0.01 (0.00-0.03) X10*3/uL Absolute Neuts (auto) 6.4 (2.0-8.3) x10*3/uL Absolute Nucleated RBC 0.000 (0.0-0.012) X10*3/uL Nucleated RBC % (auto) 0.0 (0.0-0.2) /100WBC Sodium 138 (135-145) mmol/L Potassium 4.0 (3.3-5.1) mmol/L Chloride 104 (96-108) mmol/L Carbon Dioxide 28 (22-29) mmol/L Anion Gap 10 L (12-20) BUN 9 (9-16) mg/dL Creatinine 0.93 (0.5-1.4) mg/dL Estim Creat Clear Calc 41.1 Estimated GFR 57 Random Glucose 116 H (60-115) mg/dL Calcium 9.3 (8.4-10.2) mg/dL Magnesium 2.1 (1.6-2.6) mg/dL Total Bilirubin 0.7 (0.0-1.0) mg/dL Direct Bilirubin 0.2 (0.0-0.5) mg/dL AST 44 H (5-31) U/L ALT 36 H (0-31) U/L Alkaline Phosphatase 123 H (39-117) U/L Total Protein 7.4 (6.5-8.0) g/dL Albumin 3.5 (3.5-5.0) g/dL Lipase 10 (8-78) U/L Urine Color Dark Yellow Urine Appearance Cloudy Urine pH 5.5 (5.0-9.0) Ur Specific [place] 1.015 (1.005-1.025) Urine Protein Negative (Neg-Trace) mg/dL Urine Glucose (UA) Negative (Negative) mg/dL Urine Ketones Trace (Negative) mg/dL Urine Blood Negative (Negative) Urine Nitrite Negative (Negative) Ur Leukocyte Esterase Moderate (2+) H (Negative) Urine RBC 0-2 (0-2) /HPF Urine WBC 11-20 H (0-5) /HPF Ur Squamous Epith Cells 11-20 (0-2) /HPF Urine Bacteria 1+ (None Seen) Hyaline Casts 0-2 (0-2) /LPF Independent Interpretation I performed an independent interpretation of an: EKG and CT Scan (no obstruction) Interpretation: Rate: 72 Rhythm: NSR [place]: left, LVH Normal P waves. Normal HARMAN. Normal QRS complex. ST T wave : normal no MARY, t wave inversion III qTC: 451 prior studies: no acute ischemia The study has been interpreted contemporaneously by me. . Radiology Impression Discussion of test interpretation with radiology: I have reviewed the radiologist's reading. External Record Review External record reviewed: Inpatient record and Outpatient record Prescription Management I considered prescription management with: Other Discharge Plan Discharge Clinical Impression: Acute constipation Patient Disposition: Home, Self-Care Instructions: Constipation (ED) Additional Instructions: labs reassuring no obstruction on CT scan start taking medications as prescribed - senna and suppository return for worsening symptoms, pain, or any other concerns. Prescriptions: New sennosides [senna] 8.6 mg tablet 8.6 mg PO BEDTIME 10 Days Qty: 10 0RF magnesium citrate Solution 150 ml PO DAILY 1 Days Qty: 296 0RF No Action hydroxychloroquine 200 mg tablet 200 mg PO QPM Qty: 30 11RF carbidopa-levodopa 25-100 mg tablet 1 tab PO QID 90 Days Qty: 360 1RF sennosides [senna] 8.6 mg tablet 8.6 mg PO BEDTIME Qty: 14 0RF docusate sodium [Colace] 100 mg capsule 100 mg PO BID Qty: 20 0RF polyethylene glycol 3350 [Miralax] 17 gram/dose powder 17 g PO BID Qty: 238 0RF hydroxyzine HCl 25 mg tablet 25 mg PO TID PRN triamcinolone acetonide 0.1 % ointment topical omeprazole 40 mg capsule,delayed release(DR/EC) 40 mg PO DAILY albuterol sulfate 2.5 mg /3 mL (0.083 %) solution for nebulization inhalation TID simvastatin 20 mg tablet 20 mg PO QPM hydrochlorothiazide 12.5 mg tablet 12.5 mg PO QAM aspirin 81 mg tablet,delayed release (DR/EC) 81 mg PO QPM (DME) lancets [TRUEplus Lancets] 33 gauge misc See Rx Instructions topical .MEDSUPPLY Qty: 100 Rx Instructions: As directed (DME) FreeStyle Lite Strips Strip See Rx Instructions Not Applicable .MEDSUPPLY Qty: 10 Rx Instructions: As directed (DME) pen needle, diabetic [Pentips] 32 gauge x 5/32 needle See Rx Instructions .ROUTE .MEDSUPPLY Qty: 50 Rx Instructions: As directed (DME) blood pressure test kit-large Kit See Rx Instructions .ROUTE BID Qty: 1 Rx Instructions: As directed clindamycin phosphate 1 % solution topical BID (DME) blood-glucose meter [FreeStyle Creighton Lite] Kit See Rx Instructions .ROUTE .MEDSUPPLY Qty: 1 Rx Instructions: As directed polyvinyl alcohol [Artificial Tears (polyvin alc)] 1.4 % drops 1 drp ophthalmic (eye) TID-QID PRN pramipexole [Mirapex] 0.125 mg tablet 0.125 mg PO TID Minerin Creme Cream 1 appl topical DAILY nitrofurantoin monohyd/m-cryst [Macrobid] 100 mg capsule 100 mg PO Q12H Rx Instructions: must administer with a meal/food metformin 500 mg tablet 1,000 mg PO BID bupropion HCl 75 mg tablet 75 mg PO DAILY PRN (DME) compr.stocking,thigh,reg,small Misc See Rx Instructions .Route Qty: 2 0RF Rx Instructions: As directed (DME) nebulizers Misc See Rx Instructions .Route Rx Instructions: As directed albuterol sulfate 90 mcg/actuation HFA aerosol inhaler 2 puff inhalation QID PRN (Reason: wheezing) Qty: 8.5 6RF amlodipine-benazepril 10-40 mg capsule 1 cap PO DAILY doxycycline hyclate 100 mg capsule 100 mg PO BID 10 Days Qty: 20 0RF fluticasone propion-salmeterol [Wixela Inhub] 250-50 mcg/dose blister with device 1 inh inhalation Q12H 30 Days Qty: 60 11RF insulin degludec [Tresiba FlexTouch U-200] 200 unit/mL (3 mL) insulin pen subcut Tradjenta 5 mg tablet 5 mg PO DAILY metoprolol succinate 100 mg tablet extended release 24 hr 100 mg PO DAILY calcium carbonate-vitamin D3 500 mg-10 mcg (400 unit) tablet,chewable 1 tab PO BID Synjardy XR 25-1,000 mg tablet, IR - ER, biphasic 24hr PO lisinopril 40 mg tablet 40 mg PO DAILY Print Language: Albanian
--- NOTE | 2024-09-07 08:56 | ECG_ITS ---
Test Reason : weakness Blood Pressure : / mmHG Vent. Rate : 072 BPM Atrial Rate : 072 BPM P-R Int : 142 ms QRS Dur : 122 ms QT Int : 412 ms P-R-T Axes : 016 -29 015 degrees QTc Int : 451 ms Normal sinus rhythm Left ventricular hypertrophy with QRS widening ( R in aVL , [place] product ) Abnormal ECG When compared to the previous EKG of No significant changes seen Referred By: Lizbeth Florian Electronically Signed By:TERA TORRES MD
[2024-09-07] MEDS: ondansetron HCL 4 MG/2 ML VIAL IVPUSH (09:26)
[2024-09-07 09:29] LABS: MANUAL DIFF FLAG NO
[2024-09-07 09:32] LABS: Basophils Absolute Auto 0.1 X10*3/uL (0.0-0.2); Basophils Percent Auto 0.5 % (0-2); Eosinophils Absolute Auto 0.4 X10*3/uL (0.0-0.4); Eosinophils Percent Auto 3.6 % (0-4); Hemoglobin 15.3 g/dl (12.0-16.0); Imm Gran Abs Auto 0.01 X10*3/uL (0.00-0.03); Imm Gran Pct Auto 0.1 % (0.0-0.4); Lymphocytes Absolute Auto 2.3 X10*3/uL (1.2-4.9); Lymphocytes Percent Auto 23.5 % (20-40); Mean Corpuscular HGB Conc 33.3 g/dl (31.0-35.0); Mean Corpuscular Hemoglobin 30.5 pg (27.0-33.0); Mean Corpuscular Volume 91.6 fL (80.0-98.0); Mean Platelet Volume 9.8 fL (9.4-12.3); Monocytes Absolute Auto 0.6 X10*3/uL (0.1-1.2); Monocytes Percent Auto 6.3 % (2-11); Neutrophils Absolute Auto 6.4 x10*3/uL (2.0-8.3); Platelet Count 256 X10*3/uL (160-400); Red Blood Count 5.02 X10*6/uL (4.20-5.50); White Blood Count 9.7 X10*3/uL (4.8-10.8)
[2024-09-07 09:45] LABS: Alanine Aminotransferase 36 U/L (0-31); Albumin Level 3.5 g/dL (3.5-5.0); Alkaline Phosphatase 123 U/L (39-117); Anion Gap 10 (12-20); Aspartate Amino Transferase 44 U/L (5-31); Bilirubin Direct 0.2 mg/dL (0.0-0.5); Bilirubin Total 0.7 mg/dL (0.0-1.0); Blood Urea Nitrogen 9 mg/dL (9-16); Calcium 9.3 mg/dL (8.4-10.2); Carbon Dioxide 28 mmol/L (22-29); Chloride 104 mmol/L (96-108); Creatinine Clr Calc Pharmacy 41.1; Estimated Glomerular Filt Rate 57; Glucose Random 116 mg/dL (60-115); Lipase 10 U/L (8-78); Magnesium 2.1 mg/dL (1.6-2.6); Sodium 138 mmol/L (135-145); Total Protein 7.4 g/dL (6.5-8.0)
[2024-09-07 10:05] LABS: Appearance Urine Cloudy; Color Urine Dark Yellow; Glucose Urine UA Negative (Negative); Leukocyte Esterase Urine Moderate (2+) (Negative); Nitrite Urine Negative (Negative); PH 5.5 (5.0-9.0); Specific Gravity - Urine 1.015 (1.005-1.025); UMIC TRIGGER UACC YES; Urine Blood Negative (Negative); Urine Ketones Trace mg/dL (Negative); Urine Protein Negative (Neg-Trace)
[2024-09-07 10:08] LABS: Bacteria Urine 1+ (None Seen); Hyaline Casts Urine 0-2 /LPF (0-2); RBC Urine 0-2 /HPF (0-2); UACC Culture Trigger YES
[2024-09-07] MEDS: iohexoL 350 MG/ML 100 ML INFUS..BTL 85 ML IV (10:37)
[2024-09-07 11:40] VITALS: BP 158/78; PULSE 73; RESP 16; TEMP 36.7; O2SAT 93
[2024-09-07 11:54] VITALS: BP 158/78; PULSE 73; RESP 16; TEMP 36.7; O2SAT 93
== END 2024-09-07 12:04 | disposition home or self-care (01) ==
PROVIDERS: Emergency Provider Emergency Medicine; PCP Internal Medicine Geriatric Medicine
DX: K59.00 Constipation, unspecified (principal); R53.1 Weakness; E11.9 Type 2 diabetes mellitus without complications; E78.5 Hyperlipidemia, unspecified; J45.909 Unspecified asthma, uncomplicated; G20.A1 Parkinson's disease without dyskinesia, without mention of fluctuations; Z79.4 Long term (current) use of insulin; Z79.899 Other long term (current) drug therapy
CPT/HCPCS: 36415; 74177; 80048; 80076; 81001; 83690; 83735; 85025; 87086; 93005; 96374; 99284; J2405; Q9967

== ENCOUNTER → 2024-09-07 08:56 | Outpatient (BNV) | payer OTHER, SELFPAY | PROVIDERS: Emergency Provider Emergency Medicine; PCP Internal Medicine Geriatric Medicine; Visit Provider Internal Medicine Cardiovascular Disease | DX: R94.31 Abnormal electrocardiogram [ECG] [EKG] (principal); R53.1 Weakness | CPT/HCPCS: 93010 ==

== ENCOUNTER → 2024-09-07 08:57 | Outpatient (BNV) | payer OTHER, SELFPAY | PROVIDERS: Emergency Provider Emergency Medicine; PCP Internal Medicine Geriatric Medicine; Visit Provider Radiology Diagnostic Radiology | DX: K59.00 Constipation, unspecified (principal); R11.10 Vomiting, unspecified | CPT/HCPCS: 74177 ==

== ENCOUNTER 2024-10-14 08:42 | Outpatient (REF) | payer OTHER, SELFPAY | END 2024-10-14 08:43 | disposition home or self-care (01) | LOC: HO.MRI 08:42 | PROVIDERS: Visit Provider Psychiatry & Neurology Neurology | DX: G93.40 Encephalopathy, unspecified (principal) | CPT/HCPCS: 70551 ==

== ENCOUNTER 2024-10-21 16:01 | Outpatient (REF) | payer OTHER, SELFPAY ==
[2024-10-21 16:41] LABS: Appearance Urine Turbid; Color Urine Dark Yellow; Glucose Urine UA Negative (Negative); Leukocyte Esterase Urine Moderate (2+) (Negative); Nitrite Urine Negative (Negative); Specific Gravity - Urine 1.025 (1.005-1.025); UMIC TRIGGER UACC YES; Urine Blood Negative (Negative); Urine Ketones Trace mg/dL (Negative); Urine Protein 30 (1+) mg/dL (Neg-Trace)
[2024-10-21 18:11] LABS: Bacteria Urine 3+ (None Seen); Calcium Oxalate Crystals Urine Present; RBC Urine 0-2 /HPF (0-2); Squamous Epithelial Cell Urine >20 /HPF (0-2); UACC Culture Trigger YES; WBC Urine 0-5 /HPF (0-5)
[2024-10-22 11:32] LABS: Bacterial Vaginosis PCR NEGATIVE (Negative); Candida Group PCR NOT DETECTED (Not Detect); Candida glab krusei PCR NOT DETECTED (Not Detect); Trichomonas vaginalis PCR NOT DETECTED (Not Detect)
== END 2024-10-21 16:02 | disposition home or self-care (01) ==
LOC: HO.HHCLNP 16:01
PROVIDERS: Visit Provider Family Medicine
DX: B37.9 Candidiasis, unspecified (principal)
CPT/HCPCS: 81001; 81515; 87086

== ENCOUNTER 2025-02-17 08:07 | Outpatient (REF) | payer OTHER, SELFPAY ==
--- OUTSIDE RECORDS SUMMARY | 2025-02-17 08:17 | XMS_ITS | Referral Summary ---
Author Organization [facility] Address [address] [place] [address] Care Team Providers Care Distribution Center Supervisor Name Role Phone Name, Narinder Primary Care Provider [phone] Encounters Date Type Department Care Team Description 01/17/2025 10:00 AM EDT Office Visit [facility] [address] [place] [id number] Grace Lopez MD Benign paroxysmal positional vertigo, unspecified laterality (Primary Dx); Cervical dystonia 12/14/2024 Transcribe Orders [facility] Physician Referral Services [address] [place] [address] Name, Narinder Parkinson's disease with dyskinesia and fluctuating manifestations (Primary Dx) from Last 3 Months Allergies Active Allergy Reactions Criticality Noted Date Comments Calcium Vomiting 01/17/2025 Metformin Vomiting 01/17/2025 Medications acetaminophen (TYLENOL) 500 mg tablet Take 500-1,000 mg by mouth every 6 hours as needed. 4 Active albuterol 2.5 mg/3 mL (0.083%) nebulizer solution INHALE 1 AMPULE USING A NEBULIZER THREE TIMES DAILY DIRECTED 4 Active amLODIPine-jacky azepriL (LOTREL) 10-40 mg per capsule Take 1 capsule by mouth once a day. 4 Active aspirin 81 mg EC tablet TAKE 1 TABLET BY MOUTH EVERY EVENING (for the heart) 5 Active carbidopa-levo dopa (SINEMET) 25-100 mg per tablet Take 1 tablet by mouth 3 times daily. Active clindamycin (CLEOCIN T) 1 % lotion Apply topically to the affected area 2 times daily. 4 025 Active clotrimazole (LOTRIMIN) 1% vaginal cream Insert 1 Applicatorful into the vagina nightly. Active docusate sodium (COLACE) 100 mg capsule Take 100 mg by mouth 2 times a day. Active blood glucose diagnostic test strip Use to test blood sugar up to 3 times daily, as directed 4 Active hydroxychloroq uine (PLAQUENIL) 200 mg tablet Take 1 tablet by mouth daily. Active empagliflozin (JARDIANCE) 25 mg tablet Take by mouth once a day. Every morning Active magnesium citrate solution Take 296 mL by mouth once. DRINK 1/2 BOTTLE ONE TIME PRN CONSTIPATION Active metoprolol succinate XL (TOPROL XL) 100 mg tablet Take 100 mg by mouth once a day. Active white petrolatum 61 % cream 2 times a day as needed. 4 Active sennosides-doc usate sodium (PERICOLACE) 8.6-50 mg Take 1 tablet by mouth daily. 4 Active simvastatin (ZOCOR) 20 mg tablet Take 1 tablet by mouth every evening. 4 Active insulin degludec (Tresiba FlexTouch U-200) 200 unit/mL (3 mL) insulin pen INJECT 72 UNITS SUBCUTANEOUSLY EVERY EVENING 5 Active triamcinolone acetonide (KENALOG) 0.1% cream Apply topically to the affected area 2 times a day. Active omeprazole (PriLOSEC) 40 mg capsule TAKE 1 CAPSULE BY MOUTH EVERY DAY BEFORE A MEAL 5 Active albuterol (Ventolin HFA) 90 mcg inhaler Inhale 1-2 puffs by mouth every 6 hours as needed for wheezing or shortness of breath. Use with spacer. Active vitamin D3 25 mcg (1,000 unit) capsule Take 1 capsule by mouth once a day. 5 Active Social History Tobacco Use Types Packs/Day Years Used Date Smoking Tobacco: Never Smokeless Tobacco: Never Tobacco Cessation:Counseling Given: Not Answered Alcohol Use Standard Drinks/Week Comments Never 0 (1 standard drink = 0.6 oz pur e alcohol) Comments Unknown Sex and Gender Information Value Date Recorded Sex Assigned at Female 12/14/2024 11:16 AM EST Legal Sex Female 11:12 AM EST Gender Identity Not on file Sexual Orientation Not on file Last Filed Vital Signs Vital Sign Reading Time Taken Comments Blood Pressure 154/97 01/17/2025 10:29 AM EDT Pulse 94 01/17/2025 10:29 AM EDT Temperature 36.2 ??C (97.2 ??F) 01/17/2025 10:07 AM E DT Respiratory Rate 20 01/17/2025 10:07 AM EDT Oxygen Saturation - - Inhaled Oxygen Concentration - - Weight 69.1 kg (152 lb 6.4 oz) 01/17/2025 10:07 AM EDT Height - - Body Mass Index - - Plan of Treatment Upcoming Encounters Date Type Department Care Team (Late st Contact Info) Description 05/19/2025 9:30 AM EDT Office Visit [facility] [address] [place] [address] Grace Lopez MD [address] [place] [address] [place] [address] [employer] Care Teams Distribution Center Supervisor Relationship Specialty Start Date End Date NameNarinder [address] [place] [id number] PCP - General Internal Medicine 12/14/24
--- OUTSIDE RECORDS SUMMARY | 2025-02-17 08:17 | XMS_ITS | Encounter Summary ---
Author Organization [employer] [facility] Address [address] [facility] 7[address] [place] [address] Care Team Providers Care Power House Control Room Operator Name Role Phone Name, Narinder MESA Primary Care Provider [phone] Gabby Jovel PharmD Unavailable [phone] Reason for Visit * Reason Onset Date Comments Medication Question 01/21/2023 Encounter Details Date Type Department Care Team ([facility] st Contact Info) Description 01/21/2023 Telephone [facility] MED[facility]INE [address] [place] [phone] Name, MD Narinder [address] [place] [address] Medication Question Social History Tobacco Use Types Packs/Day Years Used Date Smoking Tobacco: Never Smokeless Tobacco: Never Alcohol Use Standard Drinks/Week Comments Not Currently 0 (1 standard drink = 0.6 oz pur e alcohol) Depression Answer Date Recorded Patient Health Questionnaire-9 Score 0 09/27/2022 Depression Answer Date Recorded Patient Health Questionnaire-2 Score 0 09/27/2022 Comments Unknown Sex and Gender Information Value Date Recorded Sex Assigned at Female 08/19/2022 10:18 AM EDT Legal Sex Female 10:18 AM EDT Gender Identity Female 08/19/2022 10:18 AM EDT Sexual Orientation Straight 08/19/2022 10 :18 AM EDT COVID-19 Exposure Response Date Recorded In the last 10 days, have yo u been in contact with someone who was confirmed or suspected to have Coronavirus/COVID-19? No / Unsure 01/16/2023 8:31 AM EDT documented as of this encounter Miscellaneous Notes * Telephone Encounter - Alex Tiwari - 01/21/2023 12:44 PM EDT Tc from [facility] requesting a call in regards pt medication. Please contact Dulce at [phone] documented in this encounter Plan of Treatment Upcoming Encounters Date Type Department Care Team (Late st Contact Info) Description 02/24/2025 10:00 AM EDT Medication Management [facility] MEDICINE [address] [place], [place] [phone] PuiaTalibGabby, PharmD [address] [place], [place] [phone] documented as of this encounter Goals Goal Patient Goal Type Associated Problems Recent Progress Patient-Stated? Author Blood Pressure < 140/90 Blood Pressure 166/82(2024 9:24 AM EDT) No Puia, Gabby, PharmD Record your blood pressure once per day Blood Pressure No Puia, Gabby, PharmD Note: Bring BPM or log to all appointments. Hemoglobin A1c < 8 Result Component 10.3(02/11/20 9:26 AM EDT) No Puia, Gabby, PharmD Record your blood sugar as directed Result Component No Puia, Gabby, PharmD Note: Test blood sugar at least twice daily (fasting & 2 hours after dinner). Bring glucometer or log to all visits. documented as of this encounter Visit Diagnoses Not on filedocumented in this encounter Additional Health Concerns Assessment Noted Time PHQ-9 Depression Total Score: 0 09/27/20 22 9:02 AM EST documented as of this encounter Care Teams Power House Control Room Operator Relationship Specialty Start Date End Date Name, MD Narinder [address] [place], [place] [phone] PCP - General Family Medicine 09/15/19 PuiaTalibGabby, PharmD [address] [place], [place] [phone] Pharmacist Internal Medicine 04/16/22 Hemp 4 [place] 07/13/24 documented as of this encounter
--- OUTSIDE RECORDS SUMMARY | 2025-02-17 08:17 | XMS_ITS | Clinical Summary ---
Author Organization [employer] Address [address] [facility] 7t [place] [address] Care Team Providers Care Psychologist Name Role Phone Name, Narinder MESA Primary Care Provider [phone] Gabby Jovel PharmD Unavailable [phone] Allergies No known active allergies Medications hydroxychloroqu ine (Plaquenil) 200 MG tablet Take 1 tablet by mouth at bed time. Active carbidopa-levod opa (Sinemet) 25-100 MG tabletIndicatio ns:Rx by Neuro Take 1 tablet by mouth 3 times daily. Active Alcohol Swabs (Alcohol Prep) pads Use as directed Acti ve Ventolin HFA 108 (90 Base) MCG/ACT inhaler Inhale 2 puffs every 4 (four) hours if needed for wheezing or shortness of breath. 18 g Active Nebulizer misc 1 kit if needed in the morning, at noon, in the evening, and at bedtime. Use as directed, dispense at walk in arion 01/13/24, teaching provided Active Calcium Carb-Cholecalci ferol 500-10 MG-MCG chewable tablet CHEW 1 TABLET BY MOUTH TWICE DAILY 60 tablet Active glucose blood (FREESTYLE LITE) test stripIndication s:Type 2 diabetes mellitus with hyperglycemia, with long-term current use of insulin ([facility]) Use to test blood sugar up to 3 times daily, as directed 100 strip Active TRUEplus Lancets 33G miscIndications :Type 2 diabetes mellitus with hyperglycemia, with long-term current use of insulin ([facility]) Use to test blood sugar up to 3 times daily, as directed 100 each 11 05/28/2 024 Active albuterol (2.5 MG/3ML) 0.083% nebulizer solution INHALE 1 AMPULE USING A NEBULIZER THREE TIMES DAILY DIRECTED 90 mL 1 024 Active metoprolol succinate XL (Toprol-XL) 100 MG 24 hr tabletIndicatio ns:Essential hypertension TAKE 1 TABLET BY MOUTH EVERY MORNING DO NOT BREAK, CRUSH, DISSOLVE OR CHEW 30 tablet 11 024 Active senna-docusate sodium (Senokot-S) 8.6-50 MG tablet Take 1 tablet by mouth Once per day. 30 tablet 11 024 2024 Active Skin Protectants, Misc. (Minerin Creme) cream Apply thin layer twice a day as needed 113 g 3 Active clindamycin (Cleocin T) 1 % lotion Apply topically 2 times daily. 60 mL 5 024 2024 Active Acetaminophen Extra Strength 500 MG tablet Take 1-2 tablets (500-1,000 mg) by mouth every 6 (six) hours if needed (pain). TAKE 1 OR 2 TABLETS BY MOUTH EVERY 6 HOURS NEEDED FOR PAIN OR FEVER 40 tablet 024 Active amLODIPine-dean zepril (Lotrel) 10-40 MG capsuleIndicati ons:Essential hypertension TAKE 1 CAPSULE BY MOUTH EVERY MORNING 30 capsule 5 024 Active simvastatin (Zocor) 20 MG tabletIndicatio ns:Type 2 diabetes mellitus with hyperglycemia, with long-term current use of insulin ([facility]) TAKE 1 TABLET BY MOUTH EVERY EVENING 90 tablet 1 024 Active omeprazole (PriLOSEC) [address] capsuleIndicati ons:Heartburn TAKE 1 CAPSULE BY MOUTH EVERY DAY BEFORE A MEAL 90 capsule 2 025 Active pramipexole (Mirapex) 0.125 MG tablet TAKE 1 TABLET BY MOUTH THREE TIMES DAILY IN THE MORNING, EVENING, AND BEDTIME 90 tablet 3 025 Active Fluticasone-Melo meterol 250-50 MCG/ACT aerosol powder INHALE 1 PUFF BY MOUTH EVERY TWELVE HOURS, RINSE MOUTH AFTER USING. 025 Active meclizine (Antivert) 12.5 MG tablet Take 1 tablet by mouth Once per day. Active empagliflozin-l inagliptin (Glyxambi) 25-5 MG Take 1 tablet by mouth Once per day. 30 tablet 025 2025 Active Aspirin EC Adult Low Dose 81 MG EC tabletIndicatio ns:Essential hypertension TAKE 1 TABLET BY MOUTH EVERY EVENING (for the heart) 90 tablet Active D3-1000 25 MCG (1000 UT) capsuleIndicati ons:Vitamin D deficiency TAKE 1 CAPSULE BY MOUTH EVERY MORNING 90 capsule Active Pentips Generic [place] 32G X 4 MM misc USE TO INJECT INSULIN EVERY DAY 100 each Active insulin degludec (Tresiba FlexTouch) 200 UNIT/ML injectionIndica tions:Type 2 diabetes mellitus with hyperglycemia, with long-term current use of insulin ([facility]) INJECT 80 UNITS SUBCUTANEOUSLY EVERY EVENING 9 mL Active hydroCHLOROthia zide 12.5 MG tablet Take 1 tablet (12.5 mg) by mouth Once per day. 30 tablet 025 2025 Active insulin degludec (Tresiba FlexTouch) 200 UNIT/ML injectionIndica tions:Type 2 diabetes mellitus with hyperglycemia, with long-term current use of insulin ([facility]) INJECT 72 UNITS SUBCUTANEOUSLY EVERY EVENING 9 mL 5 025 2024 Discontinued Active Problems Problem Noted Date Diagnosed Date Yeast infection 10/21/2024 Assessment & Plan (10/21/2024 3:11 PM EST): Swab obtained, Treat emperically with clotrimazole given recent abx in setting of DM. UA culture ordered. Abdominal pain 07/29/2024 Abnormal head movements 07/29/2024 Overview (07/29/2024): head tremors Chronic dyspnea 07/29/2024 Constipation 07/29/2024 Assessment & Plan (10/21/2024 3:10 PM EST): No evidence of obstruction. Rx refilled per her request. She understands not to take mag citrate excessively. 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 Transaminitis 07/29/2024 Vertigo 07/29/2024 Disorder 07/29/2024 Long-term use of Plaquenil 07/29/2024 Parkinson disease 07/29/2024 Chronic restrictive lung disease 07/29/2024 ILD (interstitial lung disease) 07/29/2024 Lupus erythematosus 07/29/2024 Pneumonitis 07/29/2024 Overview (07/29/2024): +NARCISA and +dsDNA NARCISA positive 09/19/2022 Chronic insomnia 09/19/2022 Chronic vertigo 09/19/2022 Eczema 09/19/2022 Parkinsonism 09/19/2022 Restrictive lung disease 09/19/2022 Urinary incontinence 09/19/2022 History of CVA (cerebrovascular accident) 2021 Osteoporosis 01/11/2022 Lumbar radiculopathy 08/24/2018 Type 2 diabetes mellitus 03/23/2018 Benign paroxysmal positional vertigo 06/27/2014 Endometrial hyperplasia 07/07/2012 Hyperlipidemia 07/07/2012 Inactive tuberculosis 07/07/2012 Dizziness and giddiness 03/23/2012 Essential hypertension 03/23/2012 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 Encounters Date Type Department Care Team Description 02/10/2025 9:45 AM EDT Office Visit [facility] [address] [place], [place] [phone] NameNaridner MD Type 2 diabetes mellitus with hyperglycemia, with long-term current use of insulin ([facility]) (Primary Dx); Essential hypertension 02/10/2025 Travel 01/12/2025 Refill [facility]INE [address] [place] [address] Gabby Jovel, PharmD 12/15/2024 Refill [facility] [address] [place], [place] [phone] Narinder Espana MD Essential hypertension; Vitamin D deficiency 12/07/2024 Telephone [facility] MEDICINE [address] [place], [place] [phone] NameNarinder MD 12/03/2024 Telephone [facility] [address] [facility] [address] [facility] [place] [address] Araceli Sandhu [place] Requested notes 11/22/2024 Telephone [facility] [address] [facility] [place] [address] Name, MD Narinder Referral (Patient walked in stating she needs a new referral for Neurology . She said she went to [address] [facility] and the Neurology office said she needs a new one because she had missed 8 appointments. ) from Last 3 Months Immunizations Name Administration Dates Next Due Hep B, adult 03/16/2024(Deferred: Patient decision),12/19/2017 Influenza High-dose Quadriva lent Preservative Free 07/15/2023,07/15/2022,08/20/2021 Influenza Injectable Quadriv alant Preservative Free IIV4 MDCK 09/08/2020 Influenza injectable quadriv alent IIV4 with preservative 07/30/2019 Influenza, High Dose Seasona l, Preservative Free 08/18/2024,07/14/2018 Influenza, IIV3, injectable 08/02/2010 Influenza, Split (incl. prem fied surface antigen) 07/28/2013,07/07/2012 Moderna Covid-19 Vaccine 12+ 03/22/2022, 07/31/2021,12/28/2020,11/30 Pneumococcal Conjugate PCV 13 10/27/2019 Pneumococcal Polysaccharide PPSV23 07/04/2006 RSV Bivalent 08/18/2024, 4(Deferred: Other - out of stock) TD (adult), 2 Lf tetanus tox oid, preservative free, adsorbed 07/07/2006 Tdap 12/19/2017 Zoster, Recombinant 09/08/2020,07/07/2020 Zoster, live 12/19/2017 Social History Tobacco Use Types Packs/Day Years Used Date Smoking Tobacco: Never Smokeless Tobacco: Never Tobacco Cessation:Counseling Given: Not Answered Alcohol Use Standard Drinks/Week Comments Not Currently 0 (1 standard drink = 0.6 oz pur e alcohol) Alcohol Answer Date Recorded Frequency of Alcohol Consumption Not on file 05/25/2024 Average Number of Drinks Not on file 024 Frequency of Binge Drinking Not on file 080 03/2024 Score 0 05/25/2024 Depression Answer Date Recorded Patient Health Questionnaire-9 Score 0 12/05/2023 Patient Health Questionnaire-9 Score 0 12/05/2023 Last PHQ-9: Questionnaire Data Not on file 0 12/05/2023 Housing Stability Answer Date Recorded What is your housing situation today? I have alejandra hermosillo 02/19/[address] you li ve. Do you have problems with any of the following? None of the above 02/19/2024 Food Insecurity Answer Date Recorded Within the past 12 months, y ou worried that your food would run out before you got money to buy more: Never True 02/19/2024 Within the past 12 months,th e food you bought just didn't last and you didn't have enough money to get more: Never True 11/2023 Transportation Answer Date Recorded In the past 12 months, has l ack of transportation kept you from medical appts, meetings, work or from getting things needed for daily living? No 02/19/2024 Utilities Answer Date Recorded In the past 12 months, has t he electric, gas, oil or water company threatened to shut off services in your home? No 02/19/2024 Depression Answer Date Recorded Patient Health Questionnaire-2 Score 0 12/05/2023 Comments Unknown Sex and Gender Information Value Date Recorded Sex Assigned at Female 08/19/2022 10:18 AM EDT Legal Sex Female 10:18 AM EDT Gender Identity Female 08/19/2022 10:18 AM EDT Sexual Orientation Straight 08/19/2022 10 :18 AM EDT Last Filed Vital Signs Vital Sign Reading Time Taken Comments Blood Pressure 166/82 02/10/2025 9:24 AM EDT Pulse 88 02/10/2025 9:24 AM EDT Temperature 35.9 ??C (96.6 ??F) 02/10/2025 9:24 AM ED T Respiratory Rate 12 02/10/2025 9:24 AM EDT Oxygen Saturation 97% 02/10/2025 9:24 AM EDT Inhaled Oxygen Concentration - - Weight 70.5 kg (155 lb 6.4 oz) 02/10/2025 9:24 A M EDT Height 160 cm (5' 3 ) 08/19/2024 9:53 AM EDT Body Mass Index 27.53 08/19/2024 9:53 AM EDT Plan of Treatment Upcoming Encounters Date Type Department Care Team (Late st Contact Info) Description 02/24/2025 10:00 AM EDT Medication Management [facility]INE [address] [place] [address] Gabby Jovel, PharmD [address] [place], [place] [phone] Health Maintenance Due Date Last Done Comments Hepatitis B Vaccines (2 of 3 - 19+ 3-dose series) 01/16/2018 12/19/2017 COVID-19 Vaccine ( season) 2024 03/22/2022, 07/31/2021, 12/28/2020, Additional history exists Depression Screening 12/05/2024 12/05/2023, 12/05/19 Diabetes: Foot Exam 12/05/2024 12/05/2023, 12/05/2023, 12/05/2023, Additional history exists Diabetes: Urine Protein Screening 12/10/2024 12/10/2023, 03/25/2023, 09/25/2022, Additional history exists Lipid Panel 12/10/2024 12/10/2023, 06/0 03/2023, 09/18/2022, Additional history exists SDOH Screening 02/18/2025 02/19/2024 Diabetes: Hemoglobin A1C 05/12/2025 04 025, 11/18/2024, 08/18/2024, Additional history exists Alcohol/Substance Use Screening 05/25/2025 05/25/2024 Eye Exam 11/24/2025 11/24/2024, 07/30/2023 Tobacco Screening 02/10/2026 02/10/2025 DTaP/Tdap/Td Vaccines (2 - Td or Tdap) 12/20/2027 12/19/2017, 07/07/2006 Pneumococcal Vaccine: 50+ Years Completed 10/27/2019, 07/04/2006 Zoster Vaccines Completed 09/08/2020, 06/20, 12/19/2017 Influenza Vaccine Completed 08/18/2024, , 07/15/2022, Additional history exists RSV Patients and Patients Aged 60 years or older Completed 08/18/2024 HIB Vaccines Aged Out No longer eligi ble based on patient's age to complete this topic HPV Vaccines Aged Out No longer eligi ble based on patient's age to complete this topic Hepatitis A Vaccines Aged Out No long er eligible based on patient's age to complete this topic IPV Vaccines Aged Out No longer eligi ble based on patient's age to complete this topic Meningococcal Vaccine Aged Out No hoang tatiana eligible based on patient's age to complete this topic RSV under 20 months Aged Out No longe r eligible based on patient's age to complete this topic Rotavirus Vaccines Aged Out No longer eligible based on patient's age to complete this topic Goals Goal Patient Goal Type Associated Problems Recent Progress Patient-Stated? Author Blood Pressure < 140/90 Blood Pressure 166/82(2024 9:24 AM EDT) No Gabby Jovel, PharmD Record your blood pressure once per day Blood Pressure No Talib Jovelyssa, PharmD Note: Bring BPM or log to all appointments. Hemoglobin A1c < 8 Result Component 10.3(02/11/20 9:26 AM EDT) No Gabby Jovel, PharmD Record your blood sugar as directed Result Component No Talib Jovelyssa, PharmD Note: Test blood sugar at least twice daily (fasting & 2 hours after dinner). Bring glucometer or log to all visits. Procedures Procedure Name Priority Date/Time Associated Diagnosis Comments POCT GLYCATED HEMOGLOBIN, TOTAL Routine 02/10/2025 9:26 AM EDT Type 2 diabetes mellitus with hyperglycemia, with long-term current use of insulin ([facility]) POCT GLUCOSE Routine 02/10/2025 9:26 AM EDT Type 2 diabetes mellitus with hyperglycemia, with long-term current use of insulin ([facility]) ALBUMIN, RANDOM URINE W/CREATININE Routine 12/10/2023 8:03 AM EST Type 2 diabetes mellitus with hyperglycemia, with long-term current use of insulin ([facility]) Essential hypertension LIPID PANEL, STANDARD Routine 12/10/2023 8:03 AM EST Type 2 diabetes mellitus with hyperglycemia, with long-term current use of insulin ([facility]) Essential hypertension DIABETES EYE EXAM Routine 07/30/2023 from Last 3 Months or Most Recently Relevant to Health Maintenance Results * (ABNORMAL) POCT HGB A1C (02/10/2025 9:26 AM EDT) Hemoglobin A1C 10.3(A) 4.0 - 6.0 % QC Media Lot # [id number] Lot# Expiration Date [id number] Blood 02/10/2025 9:26 AM EDT us Narinder Espana MD POINT OF CARE TEST ENTER/EDIT OR DERABLES Final Result * POCT Glucose (02/10/2025 9:26 AM EDT) Glucose Blood, POC 161 60 - 200 mg/dL QC Media Lot # [id number] Lot# Expiration Date [id number] Blood Capillary blood specimen / Unknown 02/10/2025 9:26 AM EDT us Narinder Espana MD POINT OF CARE TEST ENTER/EDIT OR DERABLES Final Result * (ABNORMAL) Albumin, Random Urine W/Creatinine (12/10/2023 8:03 AM EST) Creatinine, Urine 78.93 mg/dL [facility] Microalbumin Urine 31.0 mg/L [facility] Microalbum Creatinine Ratio Ur 39.2(H) <30 ug/mg cr [facility] Comment:Albumin/Creatinine R atio Reference Ranges: Normal: < 30 ug/mg creatinine Microalbuminuria: 30 - 300 ug/mg creatinineClinical Albuminuria: > 300 ug/mg creatinine Urine (Urine, Random) 12/10/2023 8:03 AM EST 12/10/2023 11:12 AM EST us Narinder Espana MD LAB URINE ORDERABLES Final Resul t Performing Organization Address [facility] Co de Phone Number [facility] [address] [place] [phone] * (ABNORMAL) Lipid Panel, Standard (12/10/2023 8:03 AM EST) Triglycerides 115 <150 mg/dL [facility] Comment:Desirable Triglyceri de: less than 150 mg/dLBorderline High Triglyceride 150-199 mg/dLHigh Triglyceride: 200-499 mg/dLVery High Triglyceride: greater than or equal to 5OO mg/dL Cholesterol 179 <200 mg/dL [facility] Comment:Desirable Cholestero l: less than 200 mg/dLBorderline High Cholesterol: 200-239 mg/dLHigh Cholesterol: greater than 239 mg/dL LDL Cholesterol Calculated 104(H) <100 mg/dL [facility] Comment:Desirable LDL: less than 100 mg/dLNear Optimal/Above Optimal LDL: 110- 129 mg/dLBorderline High LDL: 130-159 mg/dLHigh LDL: 160-189 mg/dLVery High LDL: greater than or equal to 190 mg/dL HDL Cholesterol 52 >40 mg/dL [facility] Comment:Desirable HDL: great er than 40 mg/dL Note: This HDL assay may give artificially low results in patients with liver disease. Blood Venous blood specimen / Unknown 12/10/2023 8:03 AM EST 12/10/2023 11:13 AM EST us Narinder Espana MD LAB BLOOD ORDERABLES Final Resul t Performing Organization Address [facility]/ZIP Co de Phone Number [facility] [address] [place] [phone] * Hm Diabetes Eye Exam (07/30/2023) Eye Exam Normal Normal us Narinder Espana MD HEALTH MAINTENANCE Final Result from Last 3 Months or Most Recently Relevant to Health Maintenance Insurance [id number] ([facility] GILBERTO CHAVEZ [id number] [facility]) [place]ILBERTO CHAVEZ [id number] Care Teams Psychologist Relationship Specialty Start Date End Date Name, MD Narinder [address] [place] [address] PCP - General Family Medicine 09/15/19 Gabby Jovel, ChanceD [address] [place] [address] Pharmacist Internal Medicine 04/16/22 [employer] 07/13/24
--- OUTSIDE RECORDS SUMMARY | 2025-02-17 08:17 | XMS_ITS | Encounter Summary ---
Author Organization [facility] Address [address] [facility] 7t [place] [address] Care Team Providers Care Construction Framer Name Role Phone Name, Narinder MESA Primary Care Provider [phone] Gabby Jovel PharmD Unavailable Reason for Visit * Reason Comments Med Refill Encounter Details Date Type Department Care Team ([facility] st Contact Info) Description 05/03/[address] [facility]INE [address] [place] [address] Gabby Jovel, PharmD [address] [place] [address] Hypertension, essential; Type 2 diabetes mellitus with hyperglycemia, with long-term current use of insulin ([facility]) Social History Tobacco Use Types Packs/Day Years [...] Orientation Straight 08/19/2022 10 :18 AM EDT documented as of this encounter Miscellaneous Notes * Telephone Encounter - Gabby Jovel PharmD - 05/08/2023 10:55 AM EDT Patient has upcoming CDTM follow up in May. Labs from 03/25 reviewed today, renal function is adequate for continued use of these meds. Refills issued. documented in this encounter Plan of Treatment Upcoming Encounters Date Type Department Care Team (Late st Contact Info) Description 02/24/2025 10:00 AM EDT Medication Management [facility] MEDICINE [address] [place], [place] [phone] Gabby Jovel PharmD [address] [place] [address] documented as of this encounter Goals Goal Patient Goal Type Associated Problems Recent Progress Patient-Stated? Author Blood Pressure < 140/90 Blood Pressure 166/82(2024 9:24 AM EDT) No Gabby Jovel PharmD Record your blood pressure once per day Blood Pressure No Gabby Jovel PharmD Note: Bring BPM or log to all appointments. Hemoglobin A1c < 8 Result Component 10.3(02/11/20 9:26 AM EDT) No Gabby Jovel PharmD Record your blood sugar as directed Result Component No Gabby Jovel PharmD Note: Test blood sugar at least twice daily (fasting & 2 hours after dinner). Bring glucometer or log to all visits. documented as of this encounter Visit Diagnoses Diagnosis Hypertension, essential Unspecified essential hypertension Type 2 diabetes mellitus with hyperglycemia, with long-term current use of insulin ([facility]) documented in this encounter Additional Health Concerns Assessment Noted Time PHQ-9 Depression Total Score: 0 09/27/20 22 9:02 AM EST documented as of this encounter Care Teams Construction Framer Relationship Specialty Start Date End Date Name, MD Narinder [address] [place], [place] [phone] PCP - General Family Medicine 09/15/19 Gabby Jovel PharmD [address] [place], [place] [phone] Pharmacist Internal Medicine 04/16/22 [employer] 07/13/24 documented as of this encounter
--- OUTSIDE RECORDS SUMMARY | 2025-02-17 08:17 | XMS_ITS | Clinical Summary ---
Author Organization [facility] Address [address] [place] [address] Care Team Providers Care Assembler Watch Train Name Role Phone Name, Narinder Primary Care Provider [phone] Allergies Active Allergy Reactions Criticality Noted Date [...] Take 1 tablet by mouth daily. 4 025 Active simvastatin (ZOCOR) 20 mg tablet Take [...] by mouth once a day. 5 Active Encounters Date Type Department Care Team Description 01/17/2025 10:00 AM EDT Office Visit [facility] [address] [place] [address] [phone] Grace Lopez MD Benign paroxysmal positional vertigo, unspecified laterality (Primary Dx); Cervical dystonia 12/14/2024 Transcribe Orders [facility] Physician Referral Services [address] [place] [phone] Name, Narinder Parkinson's disease with dyskinesia and fluctuating manifestations (Primary Dx) from Last 3 Months Social History Tobacco Use Types Packs/Day Years [...] Description 05/19/2025 9:30 AM EDT Office Visit [facility] [address], [place] [phone] Grace Lopez MD [address] [place], [place] [phone] Health Maintenance Due Date Last Done Comments Osteoporosis Screening 1989 Hepatitis B Vaccines (2 of 3 - 19+ 3-dose series) 01/16/2018 12/19/2017 COVID-19 Vaccine (5 - 2023-2 5 season) 2024 03/22/2022, 07/31/2021, 12/28/2020, Additional history exists Alcohol/Substance Use Screening 10/20/2024 Depression Screening and Follow-Up 10/20/2024 Health Care Proxy Review 10/20/2024 Social Drivers of Health Michelle ual Screening 10/20/2024 DTaP,Tdap,and Td Vaccines (2 - Td or Tdap) 12/20/2027 12/19/2017, 07/07/2006 Pneumococcal Vaccine: 50+ Years Completed , 07/04/2006 Zoster Vaccines Completed 09/08/2020, 06/20, 12/19/2017 Influenza Vaccine Completed 08/18/2024, , 07/15/2022, Additional history exists RSV Vaccine (60+ years old a nd patients) Completed 08/18/[address] [place] [address] [place] [address] GILBERTO CHAVEZ [id number] Care Teams Assembler Watch Train Relationship Specialty Start Date End Date Name, Narinder [address] [place] [id number] PCP - General Internal Medicine 12/14/24
[2025-02-17 11:52] LABS: Anion Gap 13 (12-20); Blood Urea Nitrogen 17 mg/dL (9-16); Calcium 9.7 mg/dL (8.4-10.2); Carbon Dioxide 32 mmol/L (22-29); Chloride 99 mmol/L (96-108); Cholesterol 192 mg/dL (<200); Estimated Glomerular Filt Rate > 60; Glucose Random 154 mg/dL (60-115); HDL Cholesterol 54 mg/dL (>40); LDL Cholesterol Calculated 114 mg/dL (<100); Potassium 4.3 mmol/L (3.3-5.1); Sodium 140 mmol/L (135-145); Triglycerides 123 mg/dL (<150)
[2025-02-17 12:03] LABS: Creatinine Urine 234.69 mg/dL; Microalbum/Creatinine Ratio Ur 10.6 ug/mg cr (<30)
== END 2025-02-17 08:08 | disposition home or self-care (01) ==
LOC: HO.HHCL 08:07
PROVIDERS: Visit Provider Internal Medicine Geriatric Medicine
DX: E11.65 Type 2 diabetes mellitus with hyperglycemia (principal); I10 Essential (primary) hypertension; Z79.4 Long term (current) use of insulin
CPT/HCPCS: 36415; 80048; 80061; 82043; 82570

== ENCOUNTER 2025-02-22 09:07 | Outpatient (AMB) | payer OTHER, SELFPAY ==
[2025-02-22 09:18] VITALS: BP 144/82; PULSE 73; O2SAT 97; BMI 27.1
--- NOTE | 2025-02-22 09:18 | A.OFFVIS_ITS ---
Vital Signs 02/22/25 09:18 Height 5 ft 3 in Weight 153 lb 3.54 oz BMI 27.1 BP 144/82 H Blood Pressure Location Lt brachial Position Sitting Pulse 73 Pulse Source Pulse Oximeter Pulse Oximetry (%) 97 Oxygen Delivery Method Room Air Intake Visit Reasons: ILD/Asthma Allergies calcium Allergy (Severe, Verified 02/22/25 09:19) Nausea HPI Comments Details: The patient is an 84-year-old woman with a known history of asthma was in usual state health until the end of April when she was in her apartment and she felt some strong scent bleach in fumes. She had a hard time sleeping that a her breathing became significantly worse. She was brought to the [facility] via ambulance. She was given prednisone in addition to more respiratory therapy. After that she patient underwent a CT scan of the chest in the ER ruling out pulmonary emboli. Her lungs appear to be restricted without a significant airspace disease. Her respiratory status now is back to her baseline. She has not had to use her rescue inhaler. She now completed a course of prednisone. Based on the fact that she is feeling better will going to have her undergo an overnight oximetry to make sure that she is not developing any significant proxy at nighttime in addition to that will have her undergo pulmonary function studies. 09/02/2022 the patient is here for pulmonary follow-up visit. She has been doing better. Denies any significant dyspnea on exertion. Does have intermittent cough which is usually nonproductive in nature. Overall she feels like her breathing is better. The patient was supposed to have a chest x-ray but has not had 1 as of yet. I will request that she undergo a chest x-ray. In addition to that we did review her overnight oximetry from back in December which she did desaturate briefly down to the low 80s. The patient is open to starting oxygen to use nocturnally if she needs it. Therefore will repeat the overnight test at this time. to continues to be on the Plaquenil. Denies any visual changes. She does complaint of injury or a area of swelling that she has in her left lower extremity. She states that it started like a pimple and now is gotten red and tender. Appears to be a little bit area of Cellulitis with likely a component of phlebitis. Patient benefit from a course of antibiotics. Based on the fact that the patient's respiratory status is unchanged or improved I will hold off on any immunomodulator therapy or immunosuppressive therapy. The patient will undergo the overnight oximetry in the chest x-ray prior to the next visit. 03/03/2023 the patient is here for a pulmonary follow-up visit. The patient is doing well from a respiratory status. She does have a rescue inhaler that she does not have to use regularly. The patient is sleeping well and she is waking up rested. Denies any headaches in the morning. We did review the overnight oximetry demonstrating that she did desaturate below 88% for about 20 minutes. I did offer oxygen supplementation at nighttime. However, the patient does not feel that she needs and does not want to pursue that at this time. She is complaining of significant unsteadiness on her feet and muscle in the skeletal discomforts. The patient does have a cane. She definitely needs to be with her walker. She is going to use it as she has 1 at home. She would like to hold off on the oxygen at this point. She does continue on the Plaquenil with good effects. No evidence of any active pneumonitis on her last x-ray. Will have her repeat the x-ray at this time. 08/29/2023 the patient is here for a pulmonary follow-up visit. She is doing very well. She denies any shortness of breath or chest discomfort. Although sh e she does have some episodic chest and back discomfort at times. It is usually fleeting. She has been on the Plaquenil with good results. We did look at the x-ray that she had back in February 2023 which is reassuring demonstrating only minimal chronic changes in otherwise no acute disease. Patient otherwise is doing well on the current therapy. No additional therapy is warranted apparent will follow-up in 6 months with a chest x-ray. The patient has a MAX and she has not needed it. 02/20/2024 the patient is here for a pulmonary follow-up visit. Overall the patient is doing better. She was sick about 3 4 weeks ago. She went to the urgent Care at [facility] thinking she had COVID. Had significant sinusitis symptoms and bronchitis. She tested negative for COVID. The patient was treated with a course of antibiotics. She partially improved. More recently she did undergo a chest x-ray here at [facility] ordered by me. I personally reviewed it. It appears that she has still some evidence of bronchitis. Otherwise no evidence of any interstitial lung disease. Denies any significant shortness of breath. Will go ahead and start her on doxycycline for 10 days. Otherwise she will continue with the Plaquenil. No evidence of any pneumonitis at this time. 08/23/2024 the patient is here for pulmonary follow-up visit. She does complaint exertion. Vuvr-rl-yjlyezcc severity. She does use her rescue inhaler several times a day. At this time will place her on a maintenance inhaler, Wixela. In addition to that she had a CT scan of the abdomen back in 08/08/2024. I did personally reviewed. She did have some atelectasis at the bases. She had an x- ray back in 02/07/2024 demonstrating some bronchitis. She continues on the Plaquenil. I do believe that the Wixela will help with the chronic bronchitis issues in the bronchospasm although she still has other reasons for her shortness of breath. She does have restrictive lung disease. The patient will follow-up in 6 months. If she has any issues prior to that she will call for assessment 02/22/2025 the patient is here for a pulmonary follow-up visit. Overall she is doing well. She continues use her rescue inhaler once or twice a day. She has not been using the Wixela she does not like it. She does not feel like she needs it either. She does have issues with aches and pains. Sometimes her acute sharp in different parts of her body. Does not have any pleuritic chest pain. She also complains of visual changes. Sometimes she has a hard time seen. Therefore this point will going to go ahead and hold off on the Plaquenil just in case she is having an adverse effect from that. She is also going to hold off on the Wixela. She does use the albuterol inhaler once or twice a day which is reasonable. In the meantime the patient will have an x-ray in 6 months when she follows up. She is having muscle look at all her medications. She does take a statin. She can not talk to her primary care doctor about any adverse effects from statins causing muscle Aches. If she has any issues prior to the next visit she will call for an earlier assessment. 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 Review of Systems Const Denies night sweats ENT Denies change in voice, Denies lip swelling, Denies mouth pain, Reports nasal congestion, Reports nasal discharge and Denies tongue swelling Card Denies chest pain and Reports dyspnea on exertion Resp Reports cough and Reports dyspnea on exertion GI Denies abdominal pain Musc Reports as per HPI, Reports abnormal gait, Reports myalgias and Reports muscle cramps Skin/Breast Denies erythema Neuro Denies Neuro-related abnormal movements and Reports abnormal gait Psych Denies no additional complaints Franck/Lymph Denies easy bleeding and Denies lymphadenopathy Aller/Immun Denies lip swelling and Denies tongue swelling Physical Exam Vital Signs: Last Vital Signs Pulse 73 02/22/25 09:18 BP 144/82 H 02/22/25 09:18 Pulse Ox 97 02/22/25 09:18 Oxygen Delivery Method Room Air 02/22/25 09:18 BMI result Body Mass Index 27.1 Const General: alert Neck Neck: Yes normal visual inspection, Yes full ROM and Yes no lymphadenopathy Chest Chest palpation & inspection: normal inspection of the chest Resp Effort & Inspection: normal respiratory effort Auscultation: diminished lung sounds Cardio Rate: regular rate Rhythm: regular rhythm Heart sounds: S1 normal heart sound present and S2 normal heart sound present GI Palpation (GI): Soft to palpation and nontender Auscultation: normal bowel sounds Skin General skin exam: rashes and/or lesions noted Extrem Right lower extremity: lower leg Details: tenderness Assessment & Plan Assessment & Plan (1) ILD (interstitial lung disease): Code(s): J84.9 - Interstitial pulmonary disease, unspecified Category: Medical (2) Pneumonitis: Comment: +NARCISA and +dsDNA Code(s): J18.9 - Pneumonia, unspecified organism Category: Medical (3) Chronic restrictive lung disease: Code(s): J98.4 - Other disorders of lung Category: Medical (4) Asthma: Code(s): J45.909 - Unspecified asthma, uncomplicated Category: Medical Qualifiers: Asthma complication type: uncomplicated Asthma persistence: intermittent Asthma severity: mild Qualified Code(s): J45.20 - Mild intermittent asthma, uncomplicated (5) Reactive airways dysfunction syndrome: Code(s): J68.3 - Other acute and subacute respiratory conditions due to chemicals, gases, fumes and vapors Category: Medical Plan: The patient describes developing her respiratory symptoms after exposure to a few more toxin. This may have resulted in some small airways disease and bronchospasms. Symptoms appeared to have improved. Plan Continue the short-acting beta agonist as needed stopped Wixela stop plaquenil due to visual changes No immunosupression and antifibrotic agents in view of her clinical improvement. CXR in 4-6 months F/U 6 months Orders: Orders XR chest 2V Today J84.9 - Interstitial pulmonary disease, unspecified Medications: Discontinued hydroxychloroquine Discontinued Reason: Doctor's Order 200 mg PO QPM 30 tabs 11RF fluticasone propion-salmeterol 250-50 mcg/dose (Wixela Inhub) Discontinued Reason: Doctor's Order 1 inh inhalation Q12H 30 days 60 ea 11RF Coding Level of Care Code Est Pt Level 4 (47969) Complex EM visit Add On G2211 Diagnoses ILD (interstitial lung disease) J84.9 Pneumonitis J18.9 Chronic restrictive lung disease J98.4 Mild intermittent asthma without complication J45.20 Asthma complication type: uncomplicated Asthma persistence: intermittent Asthma severity: mild Reactive airways dysfunction syndrome J68.3 Time Spent (min) 17
--- OUTSIDE RECORDS SUMMARY | 2025-02-22 09:54 | XMS_ITS | Encounter Summary ---
Author Organization [employer] Address [address] [facility] 7t [place] [address] Care Team Providers Care Dairy Quality Assurance Officer Name Role Phone Name, Narinder MESA Primary Care Provider [phone] Gabby Jovel PharmD Unavailable [phone] Reason for Visit * Reason Comments Med Refill Encounter Details Date Type Department Care Team ([facility] st Contact Info) Description 02/17/2025 Refill [facility] [address] [place] [address] Name, MD Narinder [address] [place] [address] Social History Tobacco Use Types Packs/Day Years Used Date Smoking Tobacco: Never Smokeless Tobacco: Never Alcohol Use Standard Drinks/Week Comments Not Currently 0 (1 standard drink = 0.6 oz pur e alcohol) Alcohol Answer Date Recorded Frequency of Alcohol Consumption Not on file 05/25/2024 Average Number of Drinks Not on file 024 Frequency of Binge Drinking Not on file 03/2024 Score 0 05/25/2024 Depression Answer Date [...] AM EDT documented as of this encounter Plan of Treatment Upcoming Encounters Date Type Department Care Team (Late st Contact Info) Description 02/24/2025 10:00 AM EDT Medication Management [facility] [address] [place] [phone] Puia, Gabby, PharmD [address] [place] [phone] 06/01/2025 9:30 AM EDT Office Visit [facility] [address] [place] [phone] Name, MD Narinder [address] [place] [phone] documented as of this encounter Goals Goal [...] Noted Time PHQ-9 Depression Total Score: 0 12/05/19 24 11:05 AM EST documented as of this encounter Care Teams Dairy Quality Assurance Officer Relationship Specialty Start Date End Date Name, MD Narinder [address] [place] [address] PCP - General Family Medicine 09/15/19 Gabby Jovel, Dawn [address] [place] [address] Pharmacist Internal Medicine 04/16/22 [facility] 07/13/24 documented as of this encounter
--- OUTSIDE RECORDS SUMMARY | 2025-02-22 09:54 | XMS_ITS | Encounter Summary ---
Author Organization [employer] Address [address] [facility] 7t [place] [address] Care Team Providers Care Cupola Hoist Operator Name Role Phone Name, Narinder MESA Primary Care Provider [phone] Gabby Jovel PharmD Unavailable Reason for Visit * Reason Comments Med Refill Encounter Details Date Type Department Care Team ([facility] st Contact Info) Description 05/03/2023 Refill [facility] [address] [place] [address] Gabby Jovel, PharmD [address] [place] [address] Hypertension, essential; Type 2 diabetes mellitus with hyperglycemia, with long-term current use of insulin ([facility]) Social History Tobacco Use Types Packs/Day Years [...] Miscellaneous Notes * Telephone Encounter - Gabby Jovel, PharmD - 05/08/2023 10:55 AM EDT Patient has upcoming CD follow up in Aug. Labs from 03/25 reviewed today, renal function is adequate for continued use of these meds. Refills issued. documented in this encounter Plan of Treatment Upcoming Encounters Date Type Department Care Team (Late st Contact Info) Description 02/24/2025 10:00 AM EDT Medication Management [facility] [address] [place] [phone] Gabby Jovel PharmD [address] [place] [phone] 06/01/2025 9:30 AM EDT Office Visit [facility] [address] [place] [phone] NameNarinder MD [address] [place] [phone] documented as of this encounter Goals Goal [...] hyperglycemia, with long-term current use of insulin ([facility]) documented in this encounter Additional Health Concerns Assessment Noted Time PHQ-9 Depression Total Score: 0 09/27/20 22 9:02 AM EST documented as of this encounter Care Teams Cupola Hoist Operator Relationship Specialty Start Date End Date NameNarinder MD [address] [place] [phone] PCP - General Family Medicine 09/15/19 Gabby Jovel PharmD [address] [place], [place] [phone] Pharmacist Internal Medicine 04/16/22 [facility] 07/13/24 documented as of this encounter
--- OUTSIDE RECORDS SUMMARY | 2025-02-22 09:54 | XMS_ITS | Encounter Summary ---
Author Organization [email or web address] Address [address] [facility] 7t [place] [address] Care Team Providers Care Beam Press Operator Name Role Phone Name, Narinder MESA Primary Care Provider [phone] Gabby Jovel PharmD Unavailable Reason for Visit * Reason Onset Date Comments Medication Question 01/21/2023 Encounter Details Date Type Department Care Team ([facility] st Contact Info) Description 01/21/2023 Telephone [facility] [address] [place] [address] Name, MD Narinder [address] [place] [address] Medication Question Social History Tobacco Use Types [...] regards pt medication. Please contact Dulce at [phone] documented in this encounter Plan of Treatment Upcoming Encounters Date Type Department Care Team (Late st Contact Info) Description 02/24/2025 10:00 AM EDT Medication Management [facility] [address] [place] [phone] Puia, Gabby, PharmD [address] [place] [phone] 06/01/2025 9:30 AM EDT Office Visit [facility] [address] [place] [phone] Name, MD Narinder [address] [place] [phone] documented as of this encounter Goals Goal Patient Goal Type Associated Problems Recent Progress Patient-Stated? Author Blood Pressure < 140/90 Blood Pressure 166/82(2024 9:24 AM EDT) No Puia, Gabby, PharmD Record your blood pressure once per day Blood Pressure No Puia, Gabby, PharmD Note: Bring BPM or log to all appointments. Hemoglobin A1c < 8 Result Component 10.3(02/11/20 25 9:26 AM EDT) No Puia, Gabby, PharmD [...] documented as of this encounter Care Teams Beam Press Operator Relationship Specialty Start Date End Date NameNarinder MD [address] [place] [phone] PCP - General Family Medicine 09/15/19 Gabby Jovel PharmD [address] [place] [address] Pharmacist Internal Medicine 04/16/22 [employer] 07/13/24 documented as of this encounter
--- OUTSIDE RECORDS SUMMARY | 2025-02-22 09:54 | XMS_ITS | Encounter Summary ---
Author Organization [employer] Address [address] [facility] [address] [place] [address] Care Team Providers Care Baseball Scout Name Role Phone Name, Narinder MESA Primary Care Provider [phone] Gabby Jovel PharmD Unavailable [phone] Reason for Visit * Reason Onset Date Comments april recalls 02/18/2025 Encounter Details Date Type Department Care Team (Late st Contact Info) Description 02/18/[address] [facility] [address] [place] [address] Ju Christie [place] april recalls Social History Tobacco Use Types Packs/Day Years [...] your housing situation today? I have alejandra jaimee 02/19/[address] you li [...] encounter Miscellaneous Notes * Telephone Encounter - Ju Christie [place] - 02/18/2025 11:56 AM EDT Telephone call to patient to schedule the following recall: Visit type: Follow up Appointment notes: HTN and DM Patient agree to appointment on 06/01/25 at 9:30 AM with Name. documented in this encounter Plan of Treatment Upcoming Encounters Date Type Department Care Team ([facility] st Contact Info) Description 02/24/2025 10:00 AM EDT Medication Management [facility] [address] [place] [phone] Gabby Jovel, PharmD [address] [place] [phone] 06/01/2025 9:30 AM EDT Office Visit [facility] [address] [place] [phone] Name, MD Narinder [address] [place] [address] documented as of this encounter Goals Goal Patient Goal Type Associated Problems Recent Progress Patient-Stated? Author Blood Pressure < 140/90 Blood Pressure 166/82(2024 9:24 AM EDT) No Puia, Gabby, PharmD Record your blood pressure once per day Blood Pressure No PuTalib harringtonyssa, PharmD Note: Bring BPM or log to all appointments. Hemoglobin A1c < 8 Result Component 10.3(02/11/20 9:26 AM EDT) No Puia, Gabby, PharmD Record your blood sugar as directed Result Component No Puia Gabby, PharmD Note: Test blood sugar at least twice daily (fasting & 2 hours after dinner). Bring glucometer or log to all visits. documented as of this encounter Visit Diagnoses Not on filedocumented in this encounter Additional Health Concerns Assessment Noted Time PHQ-9 Depression Total Score: 0 12/05/19 24 11:05 AM EST documented as of this encounter Care Teams Baseball Scout Relationship Specialty Start Date End Date Name, MD Narinder [address] [place] [address] PCP - General Family Medicine 09/15/19 Gabby Jovel, PharmD [address] [place] [address] Pharmacist Internal Medicine 04/16/22 [facility] 07/13/24 documented as of this encounter
--- OUTSIDE RECORDS SUMMARY | 2025-02-22 09:55 | XMS_ITS | Clinical Summary ---
Author Organization [employer] Address [address] [facility] [place] [address] Care Team Providers Care Chassis Engineer Name Role Phone Name, Narinder MESA Primary Care Provider [phone] Gabby Jovel PharmD Unavailable [phone] Allergies No known active allergies Medications hydroxychloroqu [...] wheezing or shortness of breath. 18 g 3 024 Active Nebulizer misc 1 kit if needed in the morning, at noon, in the evening, and at bedtime. Use as directed, dispense at [facility] [place] 01/13/24, teaching provided Active glucose blood (FREESTYLE LITE) test stripIndication s:Type 2 diabetes mellitus with hyperglycemia, with long-term current use of insulin ([facility]) Use to test blood sugar up to 3 times daily, as directed 100 strip Active TRUEplus Lancets 33G miscIndications :Type 2 diabetes mellitus with hyperglycemia, with long-term current use of insulin ([facility]) Use to test blood sugar up to 3 times daily, as directed 100 each 024 Active albuterol (2.5 MG/3ML) 0.083% nebulizer solution INHALE 1 AMPULE USING A NEBULIZER THREE TIMES DAILY DIRECTED 90 mL 1 Active metoprolol succinate XL (Toprol-XL) 100 MG 24 hr tabletIndicatio ns:Essential hypertension TAKE 1 TABLET BY MOUTH EVERY MORNING DO NOT BREAK, CRUSH, DISSOLVE OR CHEW 30 tablet 11 Active senna-docusate sodium (Senokot-S) 8.6-50 MG tablet [...] hyperglycemia, with long-term current use of insulin ([facility]) TAKE 1 TABLET BY MOUTH EVERY EVENING [...] 1 tablet by mouth Once per day. 024 Active empagliflozin-l inagliptin (Glyxambi) 25-5 MG Take [...] MORNING 90 capsule Active Pentips Generic Pen Occidental 32G X 4 MM misc USE TO INJECT INSULIN EVERY DAY 100 each Active insulin degludec (Tresiba FlexTouch) 200 UNIT/ML injectionIndica tions:Type 2 diabetes mellitus with hyperglycemia, with long-term current use of insulin (CMS/HCC) INJECT 80 UNITS SUBCUTANEOUSLY EVERY EVENING 9 mL Active hydroCHLOROthia zide 12.5 MG tablet Take 1 tablet (12.5 mg) by mouth Once per day. 30 tablet 025 2025 Active Calcium Carb-Cholecalci ferol 500-10 MG-MCG chewable tablet CHEW 1 TABLET TWICE DAILY 60 tablet 025 Active Calcium Carb-Cholecalci ferol 500-10 MG-MCG chewable tablet CHEW 1 TABLET BY MOUTH TWICE DAILY 60 tablet 024 2024 Discontinued insulin degludec (Tresiba FlexTouch) 200 UNIT/ML injectionIndica tions:Type 2 diabetes mellitus with hyperglycemia, with long-term current use of insulin (CMS/HCC) INJECT 72 UNITS SUBCUTANEOUSLY EVERY EVENING 9 mL 025 2024 Discontinued Active Problems Problem Noted [...] Encounters Date Type Department Care Team Description 02/18/2025 Telephone [facility] [address] [place] [address] Ju Christie MA april recalls 02/17/2025 Refill [facility] [address] [place] [address] Name, MD Narinder 02/10/2025 9:45 AM EDT Office Visit [facility] [address] [place] [address] Name, MD Narinder Type 2 diabetes mellitus with hyperglycemia, with long-term current use of insulin ([facility]) (Primary Dx); Essential hypertension 02/10/2025 Travel 01/12/2025 Refill [facility] [address] [place] [address] Gabby Jovel, PharmMarguerite 12/15/2024 Refill [facility] [address] [place] [address] Name, MD Narinder Essential hypertension; Vitamin D deficiency 12/07/2024 Telephone [facility] [address] [place] [address] Name, MD Narinder 12/03/2024 Telephone [facility] [address] [place], [place] [phone] Araceli Sandhu [place] Requested notes from Last 3 Months Immunizations Name Administration [...] Description 02/24/2025 10:00 AM EDT Medication Management [facility] [address] [place] [address] [phone] Gabby Jovel, PharmD [address] [place], [place] [phone] 06/01/2025 9:30 AM EDT Office Visit [facility] [address] [place], [place] [phone] Name, MD Narinder [address] [place], [place] [phone] Health Maintenance Due Date Last Done Comments Hepatitis B Vaccines (2 of 3 - 19+ 3-dose series) 01/16/2018 12/19/2017 COVID-19 Vaccine ( season) 2024 03/22/2022, 07/31/2021, 12/28/2020, Additional history exists Depression Screening 12/05/2024 12/05/2023, 12/05/19 Diabetes: Foot Exam 12/05/2024 12/05/2023, 12/05/2023, 12/05/2023, Additional history exists SDOH Screening 02/18/2025 02/19/2024 Diabetes: Hemoglobin A1C 05/12/20252 025, 11/18/2024, 08/18/2024, Additional history exists Alcohol/Substance Use Screening 05/25/2025 05/25/2024 Eye Exam 11/24/2025 11/24/2024, 07/30/2023 Tobacco Screening 02/10/2026 02/10/2025 Diabetes: Urine Protein Screening 02/17/2026 02/17/2025, 12/10/2023, 03/25/2023, Additional history exists Lipid Panel 02/17/2026 02/17/2025, 11/21, 03/25/2023, Additional history exists DTaP/Tdap/Td Vaccines (2 - Td or Tdap) [...] Procedure Name Priority Date/Time Associated Diagnosis Comments ALBUMIN, RANDOM URINE W/CREATININE Routine 02/17/2025 8:10 AM EDT Type 2 diabetes mellitus with hyperglycemia, with long-term current use of insulin ([facility]) Essential hypertension LIPID PANEL, STANDARD Routine 02/17/2025 8:10 AM EDT Type 2 diabetes mellitus with hyperglycemia, with long-term current use of insulin ([facility]) Essential hypertension BASIC METABOLIC PANEL Routine 02/17/2025 8:10 AM EDT Type 2 diabetes mellitus with hyperglycemia, with long-term current use of insulin ([facility]) Essential hypertension POCT GLYCATED HEMOGLOBIN, TOTAL Routine 02/10/2025 9:26 AM EDT Type 2 diabetes mellitus with hyperglycemia, with long-term current use of insulin ([facility]) POCT GLUCOSE Routine 02/10/2025 9:26 AM EDT Type 2 diabetes mellitus with hyperglycemia, with long-term current use of insulin ([facility]) DIABETES EYE EXAM Routine 07/30/2023 from Last 3 Months or Most Recently Relevant to Health Maintenance Results * Albumin, Random Urine W/Creatinine (02/17/2025 8:10 AM EDT) Creatinine, Urine 234.69 mg/dL [facility] Microalbumin Urine 25.0 mg/L [facility] Microalbum Creatinine Ratio Ur 10.6 <30 ug/mg cr [facility] Comment:Albumin/Creatinine R atio Reference Ranges: Normal: < 30 ug/mg creatinine Microalbuminuria: 30 - 300 ug/mg creatinineClinical Albuminuria: > 300 ug/mg creatinine Urine (Urine, Random) 02/17/2025 8:10 AM EDT 02/17/2025 11:25 AM EDT us Narinder Espana MD LAB URINE ORDERABLES Final Resul t [facility] [address] [place] [address] [phone] * (ABNORMAL) Lipid Panel, Standard (02/17/2025 8:10 AM EDT) Triglycerides 123 <150 mg/dL [facility] Comment:Desirable Triglyceri de: less than 150 mg/dLBorderline High Triglyceride 150-199 mg/dLHigh Triglyceride: 200-499 mg/dLVery High Triglyceride: greater than or equal to 5OO mg/dL Cholesterol 192 <200 mg/dL [facility] Comment:Desirable Cholestero l: less than 200 mg/dLBorderline High Cholesterol: 200-239 mg/dLHigh Cholesterol: greater than 239 mg/dL LDL Cholesterol Calculated 114(H) <100 mg/dL [facility] Comment:Desirable LDL: less than 100 mg/dLNear Optimal/Above Optimal LDL: 110- 129 mg/dLBorderline High LDL: 130-159 mg/dLHigh LDL: 160-189 mg/dLVery High LDL: greater than or equal to 190 mg/dL HDL Cholesterol 54 >40 mg/dL [facility] Comment:Desirable HDL: great er than 40 mg/dL Note: This HDL assay may give artificially low results in patients with liver disease. Blood Venous blood specimen / Unknown 02/17/2025 8:10 AM EDT 02/17/2025 11:23 AM EDT us Narinder Name LAB BLOOD ORDERABLES Final Resul t [facility] [address] [place], [place] [phone] * (ABNORMAL) Basic Metabolic Panel (02/17/2025 8:10 AM EDT) Sodium 140 135 - 145 mmol/L [facility] Potassium 4.3 3.3 - 5.1 mmol/L [facility] Chloride 99 96 - 108 mmol/L [facility] Carbon Dioxide 32(H) 22 - 29 mmol/L [facility] Anion Gap 13 12 - 20 [facility] Urea Nitrogen (BUN) 17(H) 9 - 16 mg/dL [facility] Creatinine, Serum 0.86 0.5 - 1.4 mg/dL [facility] Estimated Glomerular Filt Rate >60 [facility] Comment:Chronic Kidney Disea se: Estimated GFR < 60 mL/min/1.90e4Ukeves Kidney Disease: Estimated GFR < 15 mL/min/1.73m2 Glucose 154(H) 60 - 115 mg/dL [facility] Calcium 9.7 8.4 - 10.2 mg/dL [facility] Blood Venous blood specimen / Unknown 02/17/2025 8:10 AM EDT 02/17/2025 11:23 AM EDT Result Zora Espana MD LAB BLOOD ORDERABLES Final Resul t [facility] [address] [place] [phone] * (ABNORMAL) POCT HGB A1C (02/10/2025 9:26 AM EDT) Hemoglobin A1C 10.3(A) 4.0 - 6.0 % QC Media Lot # [id number] Lot# Expiration Date [id number] Blood 02/10/2025 9:26 AM EDT Result Zora Espana MD POINT OF CARE TEST ENTER/EDIT OR DERABLES Final Result * POCT Glucose (02/10/2025 9:26 AM EDT) Glucose Blood, POC 161 60 - 200 mg/dL [employer] Lot # [id number] Lot# Expiration Date 82,625 Blood Capillary blood specimen / Unknown 02/10/2025 9:26 AM EDT Result Zora Espana MD POINT OF CARE TEST ENTER/EDIT OR DERABLES Final Result * Hm Diabetes Eye Exam (07/30/2023) Eye Exam Normal Normal Result Zora Espana MD HEALTH MAINTENANCE Final Result from Last 3 Months or Most Recently Relevant to Health Maintenance Insurance [employer] (HMO D-SNP) GILBERTO CHAVEZ [id number] Care Teams Chassis Engineer Relationship Specialty Start Date End Date Name, MD Narinder [address] [place] [phone] PCP - General Family Medicine 09/15/19 Gabby Jovel PharmD [address] [place] [address] Pharmacist Internal Medicine 04/16/22 [employer] 07/13/24
== END 2025-02-22 09:33 | disposition home or self-care (01) ==
LOC: HO.HPS 09:08
PROVIDERS: PCP Internal Medicine Geriatric Medicine; Visit Provider Hospitalist
DX: J45.20 Mild intermittent asthma, uncomplicated (principal); J18.9 Pneumonia, unspecified organism; J98.4 Other disorders of lung; J68.3 Other acute and subacute respiratory conditions due to chemicals, gases, fumes and vapors
CPT/HCPCS: 99214; G2211

== ENCOUNTER → 2025-02-22 09:07 | Outpatient (BNVA) | payer OTHER, SELFPAY | PROVIDERS: PCP Internal Medicine Geriatric Medicine; Visit Provider Hospitalist | DX: J84.9 Interstitial pulmonary disease, unspecified (principal); J98.4 Other disorders of lung; J45.20 Mild intermittent asthma, uncomplicated; J68.3 Other acute and subacute respiratory conditions due to chemicals, gases, fumes and vapors | CPT/HCPCS: 99212 ==

== ENCOUNTER 2025-03-07 08:35 | Outpatient (REF) | payer OTHER, SELFPAY ==
--- OUTSIDE RECORDS SUMMARY | 2025-03-07 08:44 | XMS_ITS | Encounter Summary ---
Author Organization [employer] Address [address] [facility] 7[address] [place] [address] Care Team Providers Care Pulp Cooker Name Role Phone Name, Narinder MESA Primary Care Provider [phone] Gabby Jovel PharmD Unavailable Reason for Visit * Reason Comments Med Refill Encounter Details Date Type Department Care Team ([facility] st Contact Info) Description 05/03/2023 Refill [facility] [address] [place] [address] Gabby Jovel, PharmD [address] [place] [address] Hypertension, essential; Type 2 diabetes mellitus with hyperglycemia, with long-term current use of insulin ([facility]) Social History Tobacco Use Types Packs/Day [...] Care Team (Late st Contact Info) Description 03/30/2025 9:00 AM EDT Medication Management [facility] [address] [place] [phone] Gabby Jovel PharmD [address] [place] [phone] 06/01/2025 9:30 AM EDT Office Visit [facility] [address] [place] [phone] NameNarinder MD [address] [place] [phone] documented as of this encounter Goals Goal Patient Goal Type Associated Problems Recent Progress Patient-Stated? Author Blood Pressure < 140/90 Blood Pressure 150/90(2024 9:27 AM EDT) No Gabby Jovel PharmD Record your blood pressure once per day Blood Pressure No Gabby Jovel PharmD Note: Bring BPM or log to all appointments. Hemoglobin A1c < 8 Result Component 10.3(02/11/20 25 9:26 AM EDT) No Gabby Jovel PharmD [...] with long-term current use of insulin ([facility]) documented in this encounter Additional Health Concerns Assessment Noted Time PHQ-9 Depression Total Score: 0 09/27/20 22 9:02 AM EST documented as of this encounter Care Teams Pulp Cooker Relationship Specialty Start Date End Date NameNarinder MD [address] [place] [phone] PCP - General Family Medicine 09/15/19 Gabby Jovel PharmD [address] [place], [place] [phone] Pharmacist Internal Medicine 04/16/22 [employer] 07/13/24 documented as of this encounter
--- OUTSIDE RECORDS SUMMARY | 2025-03-07 08:44 | XMS_ITS | Encounter Summary ---
Author Organization [employer] Address [address] [facility] 7t [place] [address] Care Team Providers Care Fruit Vendor Name Role Phone Name, Narinder MESA Primary Care Provider [phone] Gabby Jovel PharmD Unavailable [phone] Reason for Visit * Reason Onset Date Comments Medication Question 01/21/2023 Encounter Details Date Type Department Care Team ([facility] st Contact Info) Description 01/21/2023 Telephone [facility] [address] [place] [address] Name, MD Narinder [address] [place] [address] Medication Question Social History Tobacco Use Types [...] regards pt medication. Please contact Dulce at [phone] documented in this encounter Plan of Treatment Upcoming Encounters Date Type Department Care Team (Late st Contact Info) Description 03/30/2025 9:00 AM EDT Medication Management [facility] [address] [place] [phone] Puia, Gabby, PharmD [address] [place] [phone] 06/01/2025 9:30 AM EDT Office Visit [facility] [address] [place] [phone] Name, MD Narinder [address] [place] [phone] documented as of this encounter Goals Goal Patient Goal Type Associated Problems Recent Progress Patient-Stated? Author Blood Pressure < 140/90 Blood Pressure 150/90(2024 9:27 AM EDT) No Puia, Gabby, PharmD Record [...] documented as of this encounter Care Teams Fruit Vendor Relationship Specialty Start Date End Date NameNarinder MD [address] [place] [phone] PCP - General Family Medicine 09/15/19 Gabby Jovel PharmD [address] [place] [address] Pharmacist Internal Medicine 04/16/22 [employer] 07/13/24 documented as of this encounter
--- OUTSIDE RECORDS SUMMARY | 2025-03-07 08:45 | XMS_ITS | Clinical Summary ---
Author Organization [employer] Address [address] [facility] [address] [place] [address] Care Team Providers Care Adult Psychiatrist Name Role Phone Name, Narinder MESA Primary Care Provider [phone] Gabby Jovel PharmD Unavailable [phone] Allergies No known active allergies Medications Alcohol Swabs (Alcohol Prep) pads Use as directed Acti ve Ventolin HFA 108 (90 Base) MCG/ACT inhaler Inhale 2 puffs every 4 (four) hours if needed for wheezing or shortness of breath. 18 g 3 024 Active Nebulizer misc 1 kit if needed in the morning, at noon, in the evening, and at bedtime. Use as directed, dispense at [facility] in [facility] 01/13/24, teaching provided Active glucose blood (FREESTYLE LITE) test stripIndication s:Type 2 diabetes mellitus with hyperglycemia, with long-term current use of insulin ([facility]) Use to test blood sugar up to 3 times daily, as directed 100 strip Active TRUEplus Lancets 33G miscIndications :Type 2 diabetes mellitus with hyperglycemia, with long-term current use of insulin ([facility]) Use to test blood sugar up to 3 times daily, as directed 100 each Active albuterol (2.5 MG/3ML) 0.083% nebulizer solution INHALE 1 AMPULE USING A NEBULIZER THREE TIMES DAILY DIRECTED 90 mL Active metoprolol succinate XL (Toprol-XL) 100 MG 24 hr tabletIndicatio ns:Essential hypertension TAKE 1 TABLET BY MOUTH EVERY MORNING DO NOT BREAK, CRUSH, DISSOLVE OR CHEW 30 tablet Active senna-docusate sodium (Senokot-S) 8.6-50 MG tablet [...] NEEDED FOR PAIN OR FEVER 40 tablet Active amLODIPine-dean zepril (Lotrel) 10-40 MG capsuleIndicati ons:Essential hypertension TAKE 1 CAPSULE BY MOUTH EVERY MORNING 30 capsule 5 Active simvastatin (Zocor) 20 MG tabletIndicatio ns:Type 2 diabetes mellitus with hyperglycemia, with long-term current use of insulin ([facility]) TAKE 1 TABLET BY MOUTH EVERY EVENING 90 tablet 1 024 Active omeprazole (PriLOSEC) [address] capsuleIndicati ons:Heartburn TAKE 1 CAPSULE BY MOUTH EVERY DAY BEFORE A MEAL 90 capsule 2 Active meclizine (Antivert) 12.5 MG tablet Take 1 tablet by mouth Once per day. Active empagliflozin-l inagliptin (Glyxambi) 25-5 MG Take 1 tablet by mouth Once per day. 30 tablet 025 2025 Active Aspirin EC Adult Low Dose 81 MG EC tabletIndicatio ns:Essential hypertension TAKE 1 TABLET BY MOUTH EVERY EVENING (for the heart) 90 tablet 3 Active D3-1000 25 MCG (1000 UT) capsuleIndicati ons:Vitamin D deficiency TAKE 1 CAPSULE BY MOUTH EVERY MORNING 90 capsule 3 Active Pentips Generic Pen [place] 32G X 4 MM misc USE TO INJECT INSULIN EVERY DAY 100 each 3 Active Calcium Carb-Cholecalci ferol 500-10 MG-MCG chewable tablet CHEW 1 TABLET TWICE DAILY 60 tablet 11 Active insulin degludec (Tresiba FlexTouch) 200 UNIT/ML injectionIndica tions:Type 2 diabetes mellitus with hyperglycemia, with long-term current use of insulin ([facility]) Inject 84 Units under the skin at bedtime. 9 mL 5 Active hydroCHLOROthia zide (HYDRODiuril) 25 MG tabletIndicatio ns:Essential hypertension Take 1 tablet (25 mg) by mouth Once per day. 30 tablet 1 025 2025 Active hydroxychloroqu ine (Plaquenil) 200 MG tablet Take 1 tablet by mouth at bed time. 2024 Discontinued(T herapy completed) carbidopa-levod opa (Sinemet) 25-100 MG tabletIndicatio ns:Rx by Neuro Take 1 tablet by mouth 3 times daily. 2024 Discontinued Calcium Carb-Cholecalci ferol 500-10 MG-MCG chewable tablet CHEW 1 TABLET BY MOUTH TWICE DAILY 60 tablet 11 024 2024 Discontinued insulin degludec (Tresiba FlexTouch) 200 UNIT/ML injectionIndica tions:Type 2 diabetes mellitus with hyperglycemia, with long-term current use of insulin ([facility]) INJECT 72 UNITS SUBCUTANEOUSLY EVERY EVENING 9 mL 5 025 2024 Discontinued pramipexole (Mirapex) 0.125 MG tablet TAKE 1 TABLET BY MOUTH THREE TIMES DAILY IN THE MORNING, EVENING, AND BEDTIME 90 tablet 3 025 2024 Discontinued(D iscontinued by another clinician) Fluticasone-Melo meterol 250-50 MCG/ACT aerosol powder INHALE 1 PUFF BY MOUTH EVERY TWELVE HOURS, RINSE MOUTH AFTER USING. 025 2024 Discontinued(T herapy completed) insulin degludec (Tresiba FlexTouch) 200 UNIT/ML injectionIndica tions:Type 2 diabetes mellitus with hyperglycemia, with long-term current use of insulin ([facility]) INJECT 80 UNITS SUBCUTANEOUSLY EVERY EVENING 9 mL 5 025 2024 Discontinued(R eorder (will not trigger notification to Pharmacy)) hydroCHLOROthia zide 12.5 MG tablet Take 1 tablet (12.5 mg) by mouth Once per day. 30 tablet 11 025 2024 Discontinued(R eorder (will not trigger notification to Pharmacy)) Active Problems Problem Noted Date Diagnosed Date [...] Encounters Date Type Department Care Team Description 03/01/2025 Telephone [facility] [address] [place] [address] Narinder Espana MD 02/25/2025 Travel 02/18/2025 Telephone [facility] [address] [place] [address] Ju Christie [place] april recalls 02/17/2025 Refill [facility] [address] [place] [address] Narinder Espana MD 02/10/2025 9:45 AM EDT Office Visit [facility] [address] [place] [address] Narinder Espana MD Type 2 diabetes mellitus with hyperglycemia, with long-term current use of insulin ([facility]) (Primary Dx); Essential hypertension 02/10/2025 Travel 01/12/2025 Refill [facility] [address] [place] [address] Gabby Jovel, PharmD 12/15/2024 Refill [facility] [address], [place] [phone] Narinder Espana MD Essential hypertension; Vitamin D deficiency from Last 3 Months Immunizations Immunization Administration Dates Next Due Hep B, adult [...] Sign Reading Time Taken Comments Blood Pressure 150/90 02/25/2025 9:27 AM EDT Pulse 88 02/10/2025 9:24 AM [...] Description 03/30/2025 9:00 AM EDT Medication Management [facility] [address] [place] [phone] Gabby Jovel, PharmD [address] [place] [phone] 06/01/2025 9:30 AM EDT Office Visit [facility] [address] [place] [phone] Name, MD Narinder [address] [place] [phone] Health Maintenance Due Date Last Done Comments Hepatitis B Vaccines (2 of 3 - 19+ 3-dose series) 01/16/2018 12/19/2017 COVID-19 Vaccine ( season) 2024 03/22/2022, 07/31/2021, 12/28/2020, Additional history exists Depression Screening 12/05/2024 12/05/2023, 12/05/19 24 Diabetes: Foot Exam 12/05/2024 12/05/2023, 12/05/2023, 12/05/2023, Additional history exists SDOH Screening 02/18/2025 02/19/2024 Diabetes: Hemoglobin A1C 05/12/2025 025, 11/18/2024, 08/18/2024, Additional history exists Alcohol/Substance [...] patient's age to complete this topic Meningococcal B Vaccine Aged Out No l onger eligible based on patient's age to complete [...] Author Blood Pressure < 140/90 Blood Pressure 150/90(05/09/ 2025 9:27 AM EDT) No Puia Gabby, PharmD Record your blood pressure once per day Blood Pressure No PuTalib harringtonyssa, PharmD Note: Bring BPM or log to all appointments. Hemoglobin A1c < 8 Result Component 10.3(02/11/20 25 9:26 AM EDT) No Puia, Gabby, PharmD Record your blood sugar as directed Result Component No Pujuany Gabby, PharmD Note: Test blood sugar at least twice daily (fasting & 2 hours after dinner). Bring glucometer or log to all visits. Procedures Procedure Name Priority Date/Time Associated Diagnosis Comments ALBUMIN, RANDOM URINE W/CREATININE Routine 02/17/2025 8:10 AM EDT Type 2 diabetes mellitus with hyperglycemia, with long-term current use of insulin ([facility]) Essential hypertension LIPID PANEL, STANDARD Routine 02/17/2025 8:10 AM EDT Type 2 diabetes mellitus with hyperglycemia, with long-term current use of insulin ([facility]) Essential hypertension BASIC METABOLIC PANEL Routine 02/17/2025 8:10 AM EDT Type 2 diabetes mellitus with hyperglycemia, with long-term current use of insulin ([facility]) Essential hypertension POCT GLYCATED HEMOGLOBIN, TOTAL Routine 02/10/2025 9:26 AM EDT Type 2 diabetes mellitus with hyperglycemia, with long-term current use of insulin ([facility]) POCT GLUCOSE Routine 02/10/2025 9:26 AM EDT Type 2 diabetes mellitus with hyperglycemia, with long-term current use of insulin ([facility]) DIABETES EYE EXAM Routine 07/30/2023 from Last 3 Months or Most Recently Relevant to Health Maintenance Results * Albumin, Random Urine W/Creatinine (02/17/2025 8:10 AM EDT) Creatinine, Urine 234.69 mg/dL [facility] Microalbumin Urine 25.0 mg/L H [facility] Microalbum Creatinine Ratio Ur 10.6 <30 ug/mg cr [facility] Comment:Albumin/Creatinine R atio Reference Ranges: Normal: < 30 ug/mg creatinine Microalbuminuria: 30 - 300 ug/mg creatinineClinical Albuminuria: > 300 ug/mg creatinine Urine (Urine, Random) 02/17/2025 8:10 AM EDT 02/17/2025 11:25 AM EDT us Narinder Espana MD LAB URINE ORDERABLES Final Resul t [facility] [address] [place] [phone] * (ABNORMAL) Lipid Panel, Standard (02/17/2025 8:10 AM EDT) Triglycerides 123 <150 mg/dL [facility] Comment:Desirable Triglyceri de: less than 150 mg/dLBorderline High Triglyceride 150-199 mg/dLHigh Triglyceride: 200-499 mg/dLVery High Triglyceride: greater than or equal to 5OO mg/dL Cholesterol 192 <200 mg/dL [facility] Comment:Desirable Cholestero l: less than 200 mg/dLBorderline High Cholesterol: 200-239 mg/dLHigh Cholesterol: greater than 239 mg/dL LDL Cholesterol Calculated 114(H) <100 mg/dL [facility] Comment:Desirable LDL: less than 100 mg/dLNear Optimal/Above Optimal LDL: 110- 129 mg/dLBorderline High LDL: 130-159 mg/dLHigh LDL: 160-189 mg/dLVery High LDL: greater than or equal to 190 mg/dL HDL Cholesterol 54 >40 mg/dL [facility] Comment:Desirable HDL: great er than 40 mg/dL Note: This HDL assay may give artificially low results in patients with liver disease. Blood Venous blood specimen / Unknown 02/17/2025 8:10 AM EDT 02/17/2025 11:23 AM EDT us Narinder Espana MD LAB BLOOD ORDERABLES Final Resul t Performing Organization Address City/[facility] de Phone Number [facility] [address] [place] [phone] * (ABNORMAL) Basic Metabolic Panel (02/17/2025 8:10 AM EDT) Sodium 140 135 - 145 mmol/L [facility] Potassium 4.3 3.3 - 5.1 mmol/L [facility] Chloride 99 96 - 108 mmol/L [facility] Carbon Dioxide 32(H) 22 - 29 mmol/L [facility] Anion Gap 13 12 - 20 [facility] Urea Nitrogen (BUN) 17(H) 9 - 16 mg/dL [facility] Creatinine, Serum 0.86 0.5 - 1.4 mg/dL [facility] Estimated Glomerular Filt Rate >60 [facility] Comment:Chronic Kidney Disea se: Estimated GFR < 60 mL/min/1.25j2Hbtckw Kidney Disease: Estimated GFR < 15 mL/min/1.73m2 Glucose 154(H) 60 - 115 mg/dL [facility] Calcium 9.7 8.4 - 10.2 mg/dL [facility] Blood Venous blood specimen / Unknown 02/17/2025 8:10 AM EDT 02/17/2025 11:23 AM EDT us Narinder Espana MD LAB BLOOD ORDERABLES Final Resul t Performing Organization Address [facility] Co de Phone Number [facility] [address] [place] [phone] * (ABNORMAL) POCT HGB A1C (02/10/2025 [...] TEST ENTER/EDIT OR DERABLES Final Result * Diabetes Eye Exam (07/30/2023) Eye Exam Normal Normal us Narinder Espana MD HEALTH MAINTENANCE Final Result from Last 3 Months or Most Recently Relevant to Health Maintenance Insurance [employer] (O D-SNP) GILBERTO CHAVEZ [id number] Care Teams Adult Psychiatrist Relationship Specialty Start Date End Date Name, MD Narinder [address] [place] [phone] PCP - General Family Medicine 09/15/19 Gabby Jovel, Dawn [address] [place] [address] [place] [phone] Pharmacist Internal Medicine 04/16/22 [email or web address] 07/13/24
--- OUTSIDE RECORDS SUMMARY | 2025-03-07 08:45 | XMS_ITS | Encounter Summary ---
Author Organization [employer] Address [address] [place] [address] Care Team Providers Care Assistant Warehouse Manager Name Role Phone Name, Narinder MESA Primary Care Provider [phone] Gabby Jovel PharmD Unavailable [phone] Encounter Details Date Type Department Care Team (Late st Contact Info) Description 03/01/2025 Telephone [facility] [address] [place] [address] Name, MD Narinder [address] [place] [address] Social History Tobacco Use Types Packs/Day Years [...] encounter Miscellaneous Notes * Telephone Encounter - Clary Garber RN - 03/03/2025 2:12 PM EDT Paperwork for pt to be evaluated by [facility] completed (including facesheet, last OV with PCP, visit with Gabbysa Jovel, request sheet, and medication and allergy list) and signed by PCP. Paperwork given to[facility] liaison Cheyenne Masterson on 03/03/25. * Telephone Encounter - Clary Garber RN - 03/01/2025 12:00 PM EDT Paperwork for pt to be evaluated by [facility] completed (including facesheet, last OV with PCP, visit with Gabby Jaymeia, request sheet, and medication and allergy list) and placed on PCP desk for signature. ----- Message from Gabby Jovel sent at 02/25/2025 3:17 PM EDT ----- Regarding: VNA services Patient was previously receiving VNA services but was later discharged/graduated as they determinedshe was able to complete all tasks & medication administration independently. Today in CDTM she reports having difficulty with dexterity and thus struggling to complete once daily insulin injection, self monitoring of blood sugar and is not completing self monitoring of BP. She has dx of T2DM and HTN both of which are currently uncontrolled. She would benefit from and is agreeable to resume VNA for assistance with med administration home monitoring. Can you please assist with this process? Of note - her son who lives with her receives twice daily VNA services. Patient not aware of which agency but supplied me with [facility] name and number: [facility], . I called and was briefly connected with her before call dropped, I was going to confirm the agency, but I will defer that to you if that would be helpful. Thank you!! documented in this encounter Plan of Treatment Upcoming Encounters Date Type Department Care Team (Late st Contact Info) Description 03/30/2025 9:00 AM EDT Medication Management [facility] [address] [place] [phone] Gabby Jovel, PharmD [address] [place] [phone] 06/01/2025 9:30 AM EDT Office Visit [facility] [address] [place] [address] [phone] Name, MD Narinder [address] [place] [address] documented as of this encounter Goals Goal Patient Goal Type Associated Problems Recent Progress Patient-Stated? Author Blood Pressure < 140/90 Blood Pressure 150/90(2024 9:27 AM EDT) No Puia, Gabby, PharmD Record your blood pressure once per day Blood Pressure No Puia Gabby, PharmD Note: Bring BPM or log to all appointments. Hemoglobin A1c < 8 Result Component 10.3(02/11/20 9:26 AM EDT) No PuiaTalibGabby, PharmD Record your blood sugar as directed [...] documented as of this encounter Care Teams Assistant Warehouse Manager Relationship Specialty Start Date End Date Name, MD Narinder [address] [place] [address] PCP - General Family Medicine 09/15/19 Gabby Jovel PharmD [address] [place] [address] Pharmacist Internal Medicine 04/16/22 [employer] 07/13/24 documented as of this encounter
[2025-03-07 11:44] LABS: Anion Gap 14 (12-20); Blood Urea Nitrogen 15 mg/dL (9-16); Calcium 9.8 mg/dL (8.4-10.2); Carbon Dioxide 30 mmol/L (22-29); Chloride 98 mmol/L (96-108); Estimated Glomerular Filt Rate 55; Glucose Random 220 mg/dL (60-115); Potassium 4.2 mmol/L (3.3-5.1); Sodium 138 mmol/L (135-145)
== END 2025-03-07 08:36 | disposition home or self-care (01) ==
LOC: HO.HHCL 08:35
PROVIDERS: Visit Provider Internal Medicine Geriatric Medicine
DX: I10 Essential (primary) hypertension (principal); E11.65 Type 2 diabetes mellitus with hyperglycemia; Z79.4 Long term (current) use of insulin
CPT/HCPCS: 36415; 80048

== ENCOUNTER 2025-03-23 07:57 | Outpatient (REF) | payer OTHER, SELFPAY ==
--- NOTE | ~2025-03-23 | XR_ITS ---
CLINICAL HISTORY: J84.9 - Interstitial pulmonary disease, unspecified Two views of the chest. COMPARISON: None FINDINGS: Cholecystectomy clips. Normal heart size. Atherosclerotic thoracic aorta. No consolidation. No pleural effusion or pneumothorax. Chronic healed left sided rib fracture deformities. Scoliosis. Moderate spondylosis. No acute fracture identified. IMPRESSION: 1. No acute cardiopulmonary abnormality. This document has been electronically signed by: Darwin Pratt MD on 03/23/2025 14:11:38
--- OUTSIDE RECORDS SUMMARY | 2025-03-23 08:00 | XMS_ITS | Encounter Summary ---
Author Organization [employer] Address [address] [facility] [address] [place] [address] Care Team Providers Care Jawbone Breaker Name Role Phone Name, Narinder MESA Primary Care Provider [phone] Gabby Jovel PharmD Unavailable [phone] Reason for Visit * Reason Onset Date Comments Medication Question 01/21/2023 Encounter Details Date Type Department Care Team ([facility] st Contact Info) Description 01/21/2023 Telephone [facility] [address] [place] [address] Name, MD Narinder [address] [place] [address] Medication Question Social History Tobacco Use Types [...] regards pt medication. Please contact [facility] at [phone] documented in this encounter Plan of Treatment Upcoming Encounters Date Type Department Care Team (Late st Contact Info) Description 03/30/2025 9:00 AM EDT Medication Management [facility] [address] [place] [phone] Puia, Gabby, PharmD [address] [place] [phone] 06/01/2025 9:30 AM EDT Office Visit [facility] [address] [place] [phone] Name, MD Narinder [address] [place] [phone] documented as of this encounter Goals Goal [...] documented as of this encounter Care Teams Jawbone Breaker Relationship Specialty Start Date End Date NameNarinder MD [address] [place] [phone] PCP - General Family Medicine 09/15/19 Gabby Jovel PharmD [address] [place] [address] Pharmacist Internal Medicine 04/16/22 [employer] 07/13/24 documented as of this encounter
== END 2025-03-23 07:58 | disposition home or self-care (01) ==
LOC: HO.XRAY 07:57
PROVIDERS: PCP Internal Medicine Geriatric Medicine; Visit Provider Hospitalist
DX: J84.9 Interstitial pulmonary disease, unspecified (principal)
CPT/HCPCS: 71046

== ENCOUNTER → 2025-03-23 08:02 | Outpatient (BNV) | payer OTHER, SELFPAY | PROVIDERS: PCP Internal Medicine Geriatric Medicine; Visit Provider Radiology Diagnostic Radiology | DX: M47.9 Spondylosis, unspecified (principal) | CPT/HCPCS: 71046 ==

== ENCOUNTER 2025-08-09 09:25 | Outpatient (REF) | payer OTHER, SELFPAY ==
--- NOTE | ~2025-08-09 | XR_ITS ---
EXAMINATION: XR CHEST CLINICAL INFORMATION: J18.9 - Pneumonia, unspecified organism COMPARISON: March 23, 2025. TECHNIQUE: PA and lateral views FINDINGS: Hyperinflated lungs. No consolidation, pleural effusion or pneumothorax. Probable bulla, left lung apex. Cardiomediastinal silhouette size is normal. Calcified plaque thoracic aorta. S-shaped curvature of the thoracolumbar spine. Multilevel thoracolumbar spondylosis. Osteopenia versus osteoporosis. Vascular clips right upper quadrant abdomen likely prior cholecystectomy. XR/XR chest 2V IMPRESSION: COPD emphysematous type changes without acute airspace disease. Electronically signed by: Fortunato Boyd MD 08/09/2025 10:39 AM EDT
[2025-08-09 10:22] LABS: MANUAL DIFF FLAG NO
[2025-08-09 11:06] LABS: Hematocrit 46.1 % (37.0-47.0); Hemoglobin 15.5 g/dl (12.0-16.0); Imm Gran Abs Auto 0.05 X10*3/uL (0.00-0.03); Imm Gran Pct Auto 0.6 % (0.0-0.4); Lymphocytes Absolute Auto 2.2 X10*3/uL (1.2-4.9); Mean Corpuscular HGB Conc 33.6 g/dl (31.0-35.0); Mean Corpuscular Hemoglobin 30.3 pg (27.0-33.0); Mean Corpuscular Volume 90.0 fL (80.0-98.0); NRBC Abs Auto 0.000 X10*3/uL (0.0-0.012); NRBC Pct Auto 0.0 /100WBC (0.0-0.2); Platelet Count 253 X10*3/uL (160-400); Red Blood Count 5.12 X10*6/uL (4.20-5.50); White Blood Count 9.0 X10*3/uL (4.8-10.8)
[2025-08-09 11:38] LABS: Alanine Aminotransferase 39 U/L (0-31); Albumin Level 3.8 g/dL (3.5-5.0); Alkaline Phosphatase 135 U/L (39-117); Anion Gap 13 (12-20); Aspartate Amino Transferase 36 U/L (5-31); Blood Urea Nitrogen 11 mg/dL (9-16); Calcium 9.2 mg/dL (8.4-10.2); Carbon Dioxide 26 mmol/L (22-29); Chloride 102 mmol/L (96-108); Estimated Glomerular Filt Rate > 60; Potassium 3.7 mmol/L (3.3-5.1); Sodium 137 mmol/L (135-145); Total Protein 7.8 g/dL (6.5-8.0)
== END 2025-08-09 09:26 | disposition home or self-care (01) ==
LOC: HO.XRAY 09:25
PROVIDERS: PCP Internal Medicine Geriatric Medicine; Visit Provider Hospitalist
DX: J45.20 Mild intermittent asthma, uncomplicated (principal); J84.9 Interstitial pulmonary disease, unspecified; J68.3 Other acute and subacute respiratory conditions due to chemicals, gases, fumes and vapors; J98.4 Other disorders of lung
CPT/HCPCS: 36415; 71046; 80048; 80076; 85025; 85652; 86160; 99212

== ENCOUNTER 2025-08-09 09:25 | Outpatient (AMB) | payer OTHER, SELFPAY ==
[2025-08-09 09:30] VITALS: BP 140/74; PULSE 88; O2SAT 97; BMI 27.7
--- NOTE | 2025-08-09 09:30 | MHC.OFFVIS ---
Vital Signs 08/09/25 09:30 Height 5 ft 3 in Weight 156 lb 8.451 oz BMI 27.7 BP 140/74 H Blood Pressure Location Lt brachial Position Sitting Pulse 88 Pulse Source Pulse Oximeter Pulse Oximetry (%) 97 Oxygen Delivery Method Room Air Intake Visit Reasons: ILD/Asthma Accompanied by: Self / Same As Patient Allergies calcium Allergy (Severe, Verified 08/09/25 09:35) Nausea HPI Comments Details: The patient is an 85-year-old woman with a known history of asthma was in usual state health until the end of April when she was in her apartment and she felt some strong scent bleach in fumes. She had a hard time sleeping that a her breathing became significantly worse. She was brought to the [facility] via ambulance. She was given prednisone in addition to more respiratory therapy. After that she patient underwent a CT scan of the chest in the ER ruling out pulmonary emboli. Her lungs appear to be restricted without a significant airspace disease. Her respiratory status now is back to her baseline. She has not had to use her rescue inhaler. She now completed a course of prednisone. Based on the fact that she is feeling better will going to have her undergo an overnight oximetry to make sure that she is not developing any significant proxy at nighttime in addition to that will have her undergo pulmonary function studies. 09/02/2022 the patient is here for pulmonary follow-up visit. She has been doing better. Denies any significant dyspnea on exertion. Does have intermittent cough which is usually nonproductive in nature. Overall she feels like her breathing is better. The patient was supposed to have a chest x-ray but has not had 1 as of yet. I will request that she undergo a chest x-ray. In addition to that we did review her overnight oximetry from back in December which she did desaturate briefly down to the low 80s. The patient is open to starting oxygen to use nocturnally if she needs it. Therefore will repeat the overnight test at this time. to continues to be on the Plaquenil. Denies any visual changes. She does complaint of injury or a area of swelling that she has in her left lower extremity. She states that it started like a pimple and now is gotten red and tender. Appears to be a little bit area of Cellulitis with likely a component of phlebitis. Patient benefit from a course of antibiotics. Based on the fact that the patient's respiratory status is unchanged or improved I will hold off on any immunomodulator therapy or immunosuppressive therapy. The patient will undergo the overnight oximetry in the chest x-ray prior to the next visit. 03/03/2023 the patient is here for a pulmonary follow-up visit. The patient is doing well from a respiratory status. She does have a rescue inhaler that she does not have to use regularly. The patient is sleeping well and she is waking up rested. Denies any headaches in the morning. We did review the overnight oximetry demonstrating that she did desaturate below 88% for about 20 minutes. I did offer oxygen supplementation at nighttime. However, the patient does not feel that she needs and does not want to pursue that at this time. She is complaining of significant unsteadiness on her feet and muscle in the skeletal discomforts. The patient does have a cane. She definitely needs to be with her walker. She is going to use it as she has 1 at home. She would like to hold off on the oxygen at this point. She does continue on the Plaquenil with good effects. No evidence of any active pneumonitis on her last x-ray. Will have her repeat the x-ray at this time. 08/29/2023 the patient is here for a pulmonary follow-up visit. She is doing very well. She denies any shortness of breath or chest discomfort. Although she she does have some episodic chest and back discomfort at times. It is usually fleeting. She has been on the Plaquenil with good results. We did look at the x-ray that she had back in February 2023 which is reassuring demonstrating only minimal chronic changes in otherwise no acute disease. Patient otherwise is doing well on the current therapy. No additional therapy is warranted apparent will follow-up in 6 months with a chest x-ray. The patient has a MAX and she has not needed it. 02/20/2024 the patient is here for a pulmonary follow-up visit. Overall the patient is doing better. She was sick about 3 4 weeks ago. She went to the urgent Care at [facility] thinking she had COVID. Had significant sinusitis symptoms and bronchitis. She tested negative for COVID. The patient was treated with a course of antibiotics. She partially improved. More recently she did undergo a chest x-ray here at [facility] ordered by me. I personally reviewed it. It appears that she has still some evidence of bronchitis. Otherwise no evidence of any interstitial lung disease. Denies any significant shortness of breath. Will go ahead and start her on doxycycline for 10 days. Otherwise she will continue with the Plaquenil. No evidence of any pneumonitis at this time. 08/23/2024 the patient is here for pulmonary follow-up visit. She does complaint exertion. [id number] severity. She does use her rescue inhaler several times a day. At this time will place her on a maintenance inhaler, Wixela. In addition to that she had a CT scan of the abdomen back in 08/08/2024. I did personally reviewed. She did have some atelectasis at the bases. She had an x-ray back in 02/07/2024 demonstrating some bronchitis. She continues on the Plaquenil. I do believe that the Wixela will help with the chronic bronchitis issues in the bronchospasm although she still has other reasons for her shortness of breath. She does have restrictive lung disease. The patient will follow-up in 6 months. If she has any issues prior to that she will call for assessment 02/22/2025 the patient is here for a pulmonary follow-up visit. Overall she is doing well. She continues use her rescue inhaler once or twice a day. She has not been using the Wixela she does not like it. She does not feel like she needs it either. She does have issues with aches and pains. Sometimes her acute sharp in different parts of her body. Does not have any pleuritic chest pain. She also complains of visual changes. Sometimes she has a hard time seen. Therefore this point will going to go ahead and hold off on the Plaquenil just in case she is having an adverse effect from that. She is also going to hold off on the Wixela. She does use the albuterol inhaler once or twice a day which is reasonable. In the meantime the patient will have an x-ray in 6 months when she follows up. She is having muscle look at all her medications. She does take a statin. She can not talk to her primary care doctor about any adverse effects from statins causing muscle Aches. If she has any issues prior to the next visit she will call for an earlier assessment. 08/09/2025 the patient is here for pulmonary follow-up visit. Overall the patient has been doing okay although she had a fall from her bed. She hurt her coccyx in addition to her hip and also her arm. Seems to be getting better. Although she still complains of some chest discomfort. Some degree of pleuritic discomfort. She also complains of arthralgias. She has been off all DMARD for her rheumatoid arthritis. The patient also has underlying interstitial lung disease. Therefore, will start a small dose of Imuran to see if this provides some anti-inflammatory effects. The patient does have diabetes so therefore prednisone will be problematic with her blood sugars. Will start her on a small dose the patient also will undergo a chest x-ray and blood work today. She will follow up with primary care. She is also requesting Cardiology here in the hospital. She will talk to her primary care doctor about that. 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 Review of Systems Const Denies night sweats ENT Denies change in voice, Denies lip swelling, Denies mouth pain, Reports nasal congestion, Reports nasal discharge and Denies tongue swelling Card Denies chest pain and Reports dyspnea on exertion Resp Reports cough and Reports dyspnea on exertion GI Denies abdominal pain Musc Reports as per HPI, Reports abnormal gait, Reports myalgias and Reports muscle cramps Skin/Breast Denies erythema Neuro Denies Neuro-related abnormal movements and Reports abnormal gait Psych Denies no additional complaints Franck/Lymph Denies easy bleeding and Denies lymphadenopathy Aller/Immun Denies lip swelling and Denies tongue swelling Physical Exam Vital Signs: Last Vital Signs Pulse 88 08/09/25 09:30 BP 140/74 H 08/09/25 09:30 Pulse Ox 97 08/09/25 09:30 Oxygen Delivery Method Room Air 08/09/25 09:30 BMI result Body Mass Index 27.7 Const General: alert Neck Neck: Yes normal visual inspection, Yes full ROM and Yes no lymphadenopathy Chest Chest palpation & inspection: normal inspection of the chest Resp Effort & Inspection: normal respiratory effort Auscultation: diminished lung sounds Cardio Rate: regular rate Rhythm: regular rhythm Heart sounds: S1 normal heart sound present and S2 normal heart sound present GI Palpation (GI): Soft to palpation and nontender Auscultation: normal bowel sounds Skin General skin exam: rashes and/or lesions noted Extrem Right lower extremity: lower leg Details: tenderness Assessment & Plan Assessment & Plan (1) ILD (interstitial lung disease): Code(s): J84.9 - Interstitial pulmonary disease, unspecified Category: Medical (2) Pneumonitis: Comment: +NARCISA and +dsDNA Code(s): J18.9 - Pneumonia, unspecified organism Category: Medical (3) Chronic restrictive lung disease: Code(s): J98.4 - Other disorders of lung Category: Medical (4) Asthma: Code(s): J45.909 - Unspecified asthma, uncomplicated Category: Medical Qualifiers: Asthma complication type: uncomplicated Asthma persistence: intermittent Asthma severity: mild Qualified Code(s): J45.20 - Mild intermittent asthma, uncomplicated (5) Reactive airways dysfunction syndrome: Code(s): J68.3 - Other acute and subacute respiratory conditions due to chemicals, gases, fumes and vapors Category: Medical Plan: The patient describes developing her respiratory symptoms after exposure to a few more toxin. This may have resulted in some small airways disease and bronchospasms. Symptoms appeared to have improved. Plan Continue the short-acting beta agonist as needed stop plaquenil due to visual changes start Imuran 50mg daily CXR bloodwork F/U 4-6 months Orders: Orders Complete Blood Count Auto Diff Today J84.9 - Interstitial pulmonary disease, unspecified Basic Metabolic Panel Today J84.9 - Interstitial pulmonary disease, unspecified XR chest 2V Today J18.9 - Pneumonia, unspecified organism Liver Panel Today J84.9 - Interstitial pulmonary disease, unspecified Erythrocyte Sedimentation Rate Today J84.9 - Interstitial pulmonary disease, unspecified Complement C3 Today J84.9 - Interstitial pulmonary disease, unspecified Complement C4 Today J84.9 - Interstitial pulmonary disease, unspecified Medications: New azathioprine (Imuran) 25 mg (1/2 x 50 mg) PO DAILY 15 tabs 3RF 30 days Coding Level of Care Code Est Pt Level 4 (19367) Complex EM visit Add On G2211 Diagnoses ILD (interstitial lung disease) J84.9 Pneumonitis J18.9 Chronic restrictive lung disease J98.4 Mild intermittent asthma without complication J45.20 Asthma complication type: uncomplicated Asthma persistence: intermittent Asthma severity: mild Reactive airways dysfunction syndrome J68.3 Time Spent (min) 17
--- OUTSIDE RECORDS SUMMARY | 2025-08-09 10:30 | XMS_ITS | Clinical Summary ---
Author Organization [facility] Address [address] [place] [address] Care Team Providers Care Oxyacetylene Burner Name Role Phone Name, Narinder Primary Care Provider [phone] Allergies Active Allergy Reactions Criticality Noted Date [...] 94 01/17/2025 10:29 AM EDT Temperature 36.2 C (97.2 F) 01/17/2025 10:07 AM EDT Respiratory Rate 20 01/17/2025 10:07 AM EDT Oxygen Saturation - - Inhaled Oxygen Concentration - - Weight 69.1 kg (152 lb 6.4 oz) 01/17/2025 10:07 AM EDT Height - - Body Mass Index - - Plan of Treatment Health Maintenance Due Date Last Done Comments Osteoporosis Screening 1989 Hepatitis B Vaccines (2 of 3 - 19+ 3-dose series) 01/16/2018 12/19/2017 Alcohol/Substance Use Screening 10/20/2024 Depression Screening and Follow-Up 10/20/2024 Health Care Proxy Review 10/20/2024 Social Drivers of Health Michelle ual Screening 10/20/2024 COVID-19 Vaccine (5 - 2024-2 6 season) 2025 03/22/2022, 07/31/2021, 12/28/2020, Additional history exists Influenza Vaccine (#1) 2025 , 07/15/2023, 07/15/2022, Additional history exists DTaP,Tdap,and Td Vaccines (2 - Td or Tdap) 12/20/2027 12/19/2017, 07/07/2006 Pneumococcal Vaccine: 50+ Years Completed 0, 07/04/2006 Zoster Vaccines Completed 09/08/2020, 06/20, 12/19/2017 RSV Vaccine (60+ years old a nd patients) Completed 08/18/[address] [place] [address] [address] [employer] Care Teams Oxyacetylene Burner Relationship Specialty Start Date End Date Name, Narinder [address] [place] [id number] PCP - General Internal Medicine 12/14/24
--- OUTSIDE RECORDS SUMMARY | 2025-08-09 10:30 | XMS_ITS | Encounter Summary ---
Author Organization [employer] Address [address] [facility] [address] [place] [address] Care Team Providers Care Managed Care Analyst Name Role Phone Name, Narinder MESA Primary Care Provider [phone] Gabby Jovel PharmD Unavailable Reason for Visit * Reason Comments Med Refill Encounter Details Date Type Department Care Team ([facility] st Contact Info) Description 05/03/2023 Refill [facility] [address] [place] [address] Gabby Jovel, PharmD [address] [place] [address] Hypertension, essential; Type 2 diabetes mellitus with hyperglycemia, with long-term current use of insulin ([facility]) Social History Tobacco Use Types Packs/Day Years [...] Care Team (Late st Contact Info) Description 08/09/2025 2:30 PM EDT Office Visit [address] [address] Name, MD Narinder [address] [place] [phone] 08/26/2025 9:00 AM EST Medication Management [address] [address] Gabby Jovel PharmD [address] [place] [phone] documented as of this encounter Goals Goal Patient Goal Type Associated Problems Recent Progress Patient-Stated? Author Blood Pressure < 140/90 Blood Pressure 150/88(2024 9:34 AM EDT) No Gabby Jovel PharmD Record your blood pressure once per day Blood Pressure No Gabby Jovel PharmD Note: Bring BPM or log to all appointments. Hemoglobin A1c < 8 Result Component 9.6( 9:39 AM EDT) No Gabby Jovel PharmD Record [...] hyperglycemia, with long-term current use of insulin (HCC) documented in this encounter Additional Health Concerns Assessment Noted Time PHQ-9 Depression Total Score: 0 09/27/20 22 9:02 AM EST documented as of this encounter Care Teams Managed Care Analyst Relationship Specialty Start Date End Date Name, MD Narinder [address] [place] [phone] PCP - General Family Medicine 09/15/19 Gabby Jovel, Dawn [address] [place] [address] [place] [phone] Pharmacist Internal Medicine 04/16/22 Night Out 07/13/24 documented as of this encounter
--- OUTSIDE RECORDS SUMMARY | 2025-08-09 10:30 | XMS_ITS | Encounter Summary ---
Author Organization [facility] Address [address] [facility] [address] [place] [phone] Phone Care Team Providers Care Second Helper Name Role Phone Unknown, Unknown Primary Care Provider Val benites Encounter Details Date Type Department Care Team (Late st Contact Info) Description 03/11/2018 Ancillary Orders [facility] [address] [place] [address] [place] [address] Mandeep Fabian DO [address] [place] [address] Palpitations Social History Tobacco Use Types Packs/Day Years Used Date Smoking Tobacco: Never Assessed Comments Unknown Sex and Gender Information Value Date Recorded Sex Assigned at Not on file Legal Sex Female 2:12 PM EDT Gender Identity Not on file Sexual Orientation Not on file documented as of this encounter Plan of Treatment Not on file documented as of this encounter Results * Holter Monitor 24 Hours (03/11/2018 8:36 AM EDT) Anatomical Region Laterality Modality Heart Other Narrative 03/11/2018 1:06 PM EDT Holter monitor of good quality recorder for 24 hours. Baseline rhythm is sinus with an average heart rate of 83 and a range of 62 to a maximum of 147. There is a total of 7 isolated PVCs. There is rare supraventricular ectopy which includes 111 beat run at a rate of 145. No diary is submitted. Impression: Holter monitor demonstrating sinus rhythm with rare supraventricular and ventricular ectopy as described. No diary was submitted. Mandeep Fabian DO [facility] ORDERABLE S Final Result documented in this encounter Visit Diagnoses Diagnosis Palpitations Palpitations documented in this encounter Care Teams Second Helper Relationship Specialty Start Date End Date Unknown, Unknown, PCP - General 03/09/18 documented as of this encounter Additional Source Comments The information contained in this document represents components of the legal health record. It is not the complete legal health record.[facility]
--- OUTSIDE RECORDS SUMMARY | 2025-08-09 10:30 | XMS_ITS | Clinical Summary ---
Author Organization [facility] Address [address] [phone] Phone Care Team Providers Care [place] Manager Name Role Phone Unknown, Unknown Primary Care Provider Val benites Social History Tobacco Use Types Packs/Day Years Used Date Smoking Tobacco: Never Assessed Education Answer Date Recorded Are you interested in more education? Not on min e 02/14/2023 Are you concerned about learning? Not on file 02/14/2023 No 02/14/2023 No 02/14/2023 Comments Unknown Sex and Gender Information Value Date Recorded Sex Assigned at Not on file Legal Sex Female 2:12 PM EDT Gender Identity Not on file Sexual Orientation Not on file Plan of Treatment Not on file Medical Devices Not on file Insurance [facility] MEDICARE REPLACEMENT [facility] MEDIC[facility] REPLACEMENT [facility] MEDICARE REPLACEMENT [facility] MEDICARE REPLACEMENT [facility] MEDICARE [facility]PLACEMENT [facility] MEDICARE [facility]PLACEMENT [facility] MEDICARE REPLACEMENT [facility] MEDICARE REPLACEMENT [facility] Care Teams [place] Manager Relationship Specialty Start Date End Date Unknown, Unknown, PCP - General 03/09/18 Additional Source Comments The information contained in this document represents components of the legal health record. It is not the complete legal health record.[facility]
--- OUTSIDE RECORDS SUMMARY | 2025-08-09 10:30 | XMS_ITS | Clinical Summary ---
Author Organization [employer] Address [address] [facility] [address] [place] [address] Care Team Providers Care Metal Solderer Name Role Phone Name, Narinder MESA Primary Care Provider [phone] Gabby Jovel PharmD Unavailable [phone] Allergies No known active allergies Medications Alcohol Swabs (Alcohol Prep) pads Use as directed Acti ve senna-docusate sodium (Senokot-S) 8.6-50 MG tablet Take 1 tablet by mouth Once per day. 30 tablet 11 2024 Active Additional Information Patient not taking.Reason: constipation resolved since discontinuation of GLP, Reported on 06/09/2025 Skin Protectants, Misc. (Minerin Creme) cream Apply thin layer twice a day as needed 113 g 3 Active Additional Information Patient not taking.Reported on 06/09/2025 clindamycin (Cleocin T) 1 % lotion Apply topically 2 times daily. 60 mL 5 2024 Active Additional Information Patient not taking.Reported on 06/09/2025 omeprazole (PriLOSEC) [address] Adams ons:Heartburn TAKE 1 CAPSULE BY MOUTH EVERY DAY BEFORE A MEAL 90 capsule 2 Active meclizine (Antivert) 12.5 MG tablet Take 1 tablet by mouth if needed each day for dizziness. Active empagliflozin-l inagliptin (Glyxambi) 25-5 MG Take 1 tablet by mouth Once per day. 30 tablet 11 025 2025 Active Aspirin EC Adult Low Dose 81 MG EC tabletIndicatio ns:Essential hypertension TAKE 1 TABLET BY MOUTH EVERY EVENING (for the heart) 90 tablet 3 025 Active D3-1000 25 MCG (1000 UT) capsuleIndicati ons:Vitamin D deficiency TAKE 1 CAPSULE BY MOUTH EVERY MORNING 90 capsule 3 025 Active Pentips Generic Pen Gonzales 32G X 4 MM misc USE TO INJECT INSULIN EVERY DAY 100 each 3 025 Active Calcium Carb-Cholecalci ferol 500-10 MG-MCG chewable tablet CHEW 1 TABLET TWICE DAILY 60 tablet 11 025 Active insulin degludec (Tresiba FlexTouch) 200 UNIT/ML injectionIndica tions:Type 2 diabetes mellitus with hyperglycemia, with long-term current use of insulin ([facility]) Inject 84 Units under the skin at bedtime. 9 mL 025 Active glucose (Glutose) 40 % gel oral gel Take 15 grams (1 full tube) by mouth as needed for low blood sugar < 70 mg/dL. Recheck blood sugar in 15 mins and repeat treatment as needed. 60 g 5 025 Active simvastatin (Zocor) 20 MG tabletIndicatio ns:Type 2 diabetes mellitus with hyperglycemia, with long-term current use of insulin ([facility]) Take 1 tablet (20 mg) by mouth at bedtime. 90 tablet 1 025 Active hydroCHLOROthia zide (HYDRODiuril) 25 MG tabletIndicatio ns:Essential hypertension TAKE 1 TABLET BY MOUTH EVERY MORNING 30 tablet 5 025 Active TRUEplus Lancets 33G miscIndications :Type 2 diabetes mellitus with hyperglycemia, with long-term current use of insulin ([facility]) TEST BLOOD SUGAR THREE TIMES DAILY DIRECTED 100 each 025 Active glucose blood (FREESTYLE LITE) test stripIndication s:Type 2 diabetes mellitus with hyperglycemia, with long-term current use of insulin ([facility]) TEST BLOOD SUGAR THREE TIMES DAILY DIRECTED 100 strip 025 Active metFORMIN (Glucophage) 500 MG/5ML solution oral solutionIndicat ions:Type 2 diabetes mellitus with hyperglycemia, with long-term current use of insulin ([facility]) Take 5 mL (500 mg) by mouth with evening meal. 150 mL 2 025 Active Blood Pressure kitIndications: Type 2 diabetes mellitus with hyperglycemia, with long-term current use of insulin ([facility]),Essential hypertension Use to check home BP once daily as directed 1 kit 025 Active amLODIPine-dean zepril (Lotrel) 10-40 MG capsuleIndicati ons:Essential hypertension Take 1 capsule by mouth in the morning. 90 capsule 3 025 Active metoprolol succinate XL (Toprol-XL) 100 MG 24 hr tabletIndicatio ns:Essential hypertension Take 1 tablet (100 mg) by mouth Once per day. Do not crush or chew. 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 Overview (07/29/2024): +NARCISA and +dsDNA NARCISA positive 09/19/2022 Chronic insomnia 09/19/2022 Chronic vertigo 09/19/2022 Eczema 09/19/2022 Parkinsonism ([facility]) 09/19/2022 Restrictive lung disease 09/19/2022 Urinary incontinence 09/19/2022 History of CVA (cerebrovascular accident) 2021 Osteoporosis 01/11/2022 Lumbar radiculopathy 08/24/2018 Type 2 diabetes mellitus 03/23/2018 Benign paroxysmal positional vertigo 06/27/2014 Endometrial hyperplasia 07/07/2012 Hyperlipidemia 07/07/2012 Inactive tuberculosis 07/07/2012 Dizziness and giddiness 03/23/2012 Essential hypertension 03/23/2012 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 Encounters Date Type Department Care Team Description 07/14/2025 Refill [facility] [address] [place] [address] Name, MD Narinder Essential hypertension 07/13/2025 Telephone [facility] [address] [place] [address] Name, MD Narinder 06/10/2025 Refill [facility] [address] [place] [address] Name, MD Narinder Essential hypertension 06/09/2025 Travel from Last 3 Months Immunizations Immunization Administration [...] Sign Reading Time Taken Comments Blood Pressure 150/88 06/09/2025 9:34 AM EDT Pulse 88 02/10/2025 9:24 AM EDT Temperature 35.9 C (96.6 F) 02/10/2025 9:24 AM EDT Respiratory Rate 12 02/10/2025 9:24 AM EDT [...] Description 08/09/2025 2:30 PM EDT Office Visit [facility] [address] [place] [phone] Name, MD Narinder [address] [place] [address] 08/26/2025 9:00 AM EST Medication Management [facility] [address] [place] [phone] Gabby Jovel, PharmD [address] [place] [address] Health Maintenance Due Date Last Done Comments Alcohol/Substance Use Screening 1952 Hepatitis B Vaccines (2 of 3 - 19+ 3-dose series) 01/16/2018 12/19/2017 Depression Screening 12/05/2024 12/05/2023, 12/05/19 Diabetes: Foot Exam 12/05/2024 12/05/2023, 12/05/2023, 12/05/2023, Additional history exists SDOH Screening 02/18/2025 02/19/2024 COVID-19 Vaccine ( season) 2025 03/22/2022, 07/31/2021, 12/28/2020, Additional history exists Influenza Vaccine (#1) 2025 4, 07/15/2023, 07/15/2022, Additional history exists Diabetes: Hemoglobin A1C 09/09/2025 025, 02/10/2025, 11/18/2024, Additional history exists Eye Exam 11/24/2025 11/24/2024, 07/30/2023 Tobacco Screening 02/10/2026 02/10/2025 Diabetes: Urine Protein Screening 02/17/2026 02/17/2025, 12/10/2023, 03/25/2023, Additional history exists Lipid Panel 02/17/2026 02/17/2025, 11/21, 03/25/2023, Additional history exists DTaP/Tdap/Td Vaccines (2 - Td or Tdap) 12/20/2027 12/19/2017, 07/07/2006 Pneumococcal Vaccine: 50+ Years Completed 10/27/2019, 07/04/2006 Zoster Vaccines Completed 09/08/2020, 06/20, 12/19/2017 RSV Patients and Patients Aged 60 years [...] Blood Pressure 150/88(2024 9:34 AM EDT) No Puia Gabby, PharmD Record your blood pressure once per day Blood Pressure No Gabby Jovel, PharmD Note: Bring BPM or log to all appointments. Hemoglobin A1c < 8 Result Component 9.6( 9:39 AM EDT) No Puia Gabby, PharmD Record your blood sugar as directed Result Component No Talib Jovelyssa, PharmD Note: Test blood sugar at least twice daily (fasting & 2 hours after dinner). Bring glucometer or log to all visits. Procedures Procedure Name Priority Date/Time Associated Diagnosis Comments POCT GLYCATED HEMOGLOBIN, TOTAL Routine 06/09/2025 9:39 AM EDT Type 2 diabetes mellitus with hyperglycemia, with long-term current use of insulin ([facility]) ALBUMIN, RANDOM URINE W/CREATININE Routine 02/17/2025 8:10 AM EDT Type 2 diabetes mellitus with hyperglycemia, with long-term current use of insulin ([facility]) Essential hypertension LIPID PANEL, STANDARD Routine 02/17/2025 8:10 AM EDT Type 2 diabetes mellitus with hyperglycemia, with long-term current use of insulin ([facility]) Essential hypertension DIABETES EYE EXAM Routine 07/30/2023 from Last 3 Months or Most Recently Relevant to Health Maintenance Results * (ABNORMAL) POCT HGB A1C (06/09/2025 9:39 AM EDT) Hemoglobin A1C 9.6(A) 4.0 - 5.7 % Blood 06/09/2025 9:39 AM EDT us Narinder Espana MD POINT OF CARE TEST ENTER/EDIT OR DERABLES Final Result * Albumin, Random Urine W/Creatinine (02/17/2025 8:10 AM EDT) Creatinine, Urine 234.69 mg/dL [facility] Microalbumin Urine 25.0 mg/L [facility] Microalbum Creatinine Ratio Ur 10.6 <30 ug/mg cr [facility] Comment:Albumin/Creatinine R at Reference Ranges: Normal: < 30 ug/mg creatinine Microalbuminuria: 30 - 300 ug/mg creatinineClinical Albuminuria: > 300 ug/mg creatinine Urine (Urine, Random) 02/17/2025 8:10 AM EDT 02/17/2025 11:25 AM EDT us Narinder Espana MD LAB URINE ORDERABLES Final Resul t [facility] [address] [place] [phone] * (ABNORMAL) Lipid Panel, Standard (02/17/2025 8:10 AM EDT) Triglycerides 123 <150 mg/dL [facility] Comment:Desirable Triglyceri de: less than 150 mg/dLBorderline High Triglyceride 150-199 mg/dLHigh Triglyceride: 200-499 mg/dLVery High Triglyceride: greater than or equal to 5OO mg/dL Cholesterol 192 <200 mg/dL [facility] Comment:Desirable Cholestero l: less than 200 mg/dLBorderline High Cholesterol: 200-239 mg/dLHigh Cholesterol: greater than 239 mg/dL LDL Cholesterol Calculated 114(H) <100 mg/dL [facility] Comment:Desirable LDL: less than 100 mg/dLNear Optimal/Above Optimal LDL: 110- 129 mg/dLBorderline High LDL: 130-159 mg/dLHigh LDL: 160-189 mg/dLVery High LDL: greater than or equal to 190 mg/dL HDL Cholesterol 54 >40 mg/dL [facility] Comment:Desirable HDL: great er than 40 mg/dL Note: This HDL assay may give artificially low results in patients with liver disease. Blood Venous blood specimen / Unknown 02/17/2025 8:10 AM EDT 02/17/2025 11:23 AM EDT us Narinder Name MD LAB BLOOD ORDERABLES Final Resul t [facility] [address] [place] [phone] * Diabetes Eye Exam (07/30/2023) Eye Exam Normal Normal Narinder Espana MD HEALTH MAINTENANCE Final Result from Last 3 Months or Most Recently Relevant to Health Maintenance Insurance [id number] [employer] OPT[employer] (O D-SNP) [place]ILBERTO CHAVEZ [id number] Care Teams Metal Solderer Relationship Specialty Start Date End Date Name, MD Narinder [address] [place] [address] PCP - General Family Medicine 09/15/19 Gabby Jovel PharmD [address] [place] [address] Pharmacist Internal Medicine 04/16/22 [place] 07/13/24
--- OUTSIDE RECORDS SUMMARY | 2025-08-09 10:30 | XMS_ITS | Encounter Summary ---
Author Organization [employer] Address [address] [facility] [address] [place] [address] Care Team Providers Care Plant Operations Coordinator Name Role Phone Name, Narinder MESA Primary Care Provider [phone] Gabby Jovel PharmD Unavailable [phone] Reason for Visit * Reason Onset Date Comments Medication Question 01/21/2023 Encounter Details Date Type Department Care Team ([facility] st Contact Info) Description 01/21/2023 Telephone [facility] [address] [place] [address] Name, MD Narinder [address] [place] [address] Medication Question Social History Tobacco Use Types [...] regards pt medication. Please contact Dulce at [phone] documented in this encounter Plan of Treatment Upcoming Encounters Date Type Department Care Team (Late st Contact Info) Description 08/09/2025 2:30 PM EDT Office Visit [address] [address] Name, MD Narinder [address] [place] [phone] 08/26/2025 9:00 AM EST Medication Management [address] [address] Puia, Gabby, PharmD [address] [place] [phone] documented as of this encounter Goals Goal Patient Goal Type Associated Problems Recent Progress Patient-Stated? Author Blood Pressure < 140/90 Blood Pressure 150/88(2024 9:34 AM EDT) No Puia, Gabby, PharmD Record your blood pressure once per day Blood Pressure No Puia, Gabby, PharmD Note: Bring BPM or log to all appointments. Hemoglobin A1c < 8 Result Component 9.6( 9:39 AM EDT) No Puia, Gabby, PharmD Record [...] documented as of this encounter Care Teams Plant Operations Coordinator Relationship Specialty Start Date End Date Name, MD Narinder [address] [place] [phone] PCP - General Family Medicine 09/15/19 Gabby Jovel PharmD [address] [place] [address] Pharmacist Internal Medicine 04/16/22 [place] 07/13/24 documented as of this encounter
== END 2025-08-09 09:53 | disposition home or self-care (01) ==
LOC: HO.HPS 09:26
PROVIDERS: PCP Internal Medicine Geriatric Medicine; Visit Provider Hospitalist
DX: J84.9 Interstitial pulmonary disease, unspecified (principal); J98.4 Other disorders of lung; J45.20 Mild intermittent asthma, uncomplicated; J68.3 Other acute and subacute respiratory conditions due to chemicals, gases, fumes and vapors
CPT/HCPCS: 99214; G2211

== ENCOUNTER → 2025-08-09 10:23 | Outpatient (BNV) | payer OTHER, SELFPAY | PROVIDERS: PCP Internal Medicine Geriatric Medicine; Visit Provider Radiology Diagnostic Radiology | DX: J18.9 Pneumonia, unspecified organism (principal) | CPT/HCPCS: 71046 ==